=== PATIENT | male | born 1985 | race Caucasian/White ===

== ENCOUNTER 2020-04-07 13:42 | Inpatient (IN) ==
[2020-04-07] MEDS ORDERED: SODIUM CHLORIDE 0.9% 250 ML IV PRN ×2 (14:47→23:52)
[2020-04-07] MEDS ORDERED: DEXAMETHASONE SOD INJ 10 MG/ML VIAL IV ONE (14:54)
[2020-04-07] MEDS ORDERED: diphenhydrAMINE 50 MG/ML VIAL IV STA (14:54)
[2020-04-07] MEDS ORDERED: SODIUM CHLORIDE 0.9% 1000ML 1,000 ML IV SCH (15:00)
[2020-04-07 15:26] LABS: Hematocrit (blood only) 17.2 % (42-52); Hemoglobin 4.7 g/dL (14.0-18.0); Mean Corpuscular Hemoglobin 21.1 pg (25-34); Mean Corpuscular Hgb Conc 27.3 g/dL (32-36); Mean Corpuscular Volume 77.1 fL (80-100); Mean Platelet Volume 9.7 fL (7.4-10.4); Platelet Count 459 K/uL (130-400); RDW Coefficient of Variation 19.4 % (11.5-14.5); Red Blood Count 2.23 M/uL (4.7-6.1); White Blood Count 8.69 K/uL (4.8-10.8)
[2020-04-07 15:32] LABS: Partial Thromboplastin Ratio 0.7; Partial Thromboplastin Time < 20.0 Seconds (21.0-31.0); Prothrombin Time 10.6 Seconds (9.0-12.0)
[2020-04-07 15:41] LABS: Basophils # (auto) 0.03 K/uL (0-0.2); Basophils % (auto) 0.3 %; Eosinophils % (auto) 3.5 %; Hypochromasia Present; Immature Granulocytes # (auto) 0.01 K/uL (0.00-0.02); Immature Granulocytes % (auto) 0.1 %; Lymphocytes # (auto) 1.31 K/uL (1.2-3.4); Lymphocytes % (auto) 15.1 %; Microcytosis Present; Monocytes # (auto) 0.52 K/uL (0.11-0.59); Neutrophils # (auto) 6.52 K/uL (1.4-6.5); Ovalocytes 1+; Reticulocyte % 6.1 % (0.5-2.0); Reticulocytes # 0.14 10^6/uL (0.02-0.10)
--- NOTE | 2020-04-07 15:42 | XRay Report ---
XR chest 1V portable CLINICAL HISTORY: Atypical chest pain COMPARISON STUDY: No previous studies for comparison. FINDINGS: The cardiac and mediastinal contours are normal. There is no evidence of focal pulmonary co nsolidation. There is no evidence of failure. No pleural effusions are visualized.[ IMPRESSION: No active disease in the chest. ACT 112: Negative or not required by law. Electronically signed by: Jesse Mckeon M.D. 04/07/2020 3:41 PM
[2020-04-07 16:11] LABS: Alanine Aminotransferase 11 U/L (12-78); Albumin Globulin Ratio 0.6 (0.9-2); Aspartate Aminotransferase 9 U/L (15-37); BUN Creatinine Ratio 15.2 (10-20); Bilirubin Direct < 0.1 mg/dl (0-0.2); Bilirubin,Total 0.3 mg/dl (0.2-1); Blood Urea Nitrogen 11 mg/dl (7-18); Calcium 7.8 mg/dl (8.5-10.1); Carbon Dioxide 29 mmol/L (21-32); Chloride 105 mmol/L (98-107); Creatinine Clr Calc Pharmacy 140.5 ml/min; Est GFR (African American) 140.9; Est GFR (Non-African American) 121.6; Globulin 3.1 gm/dl (2.5-4.0); Glucose 102 mg/dl (70-99); Lipase 118 U/L (73-393); Magnesium 2.2 mg/dl (1.8-2.4); Potassium 3.8 mmol/L (3.5-5.1); Sodium 138 mmol/L (136-145); Total Protein 5.1 gm/dl (6.4-8.2)
[2020-04-07 16:15] LABS: Alkaline Phosphatase 20 U/L (45-117); C Reactive Protein < 0.29 mg/dl (0-0.29); Ferritin 15.5 ng/ml (8-388); Iron 8 mcg/dl (35-175); Total Iron Binding Capacity 324 mcg/dl (250-450); Transferrin 255 mg/dl (200-360); Troponin I < 0.015 ng/ml (0-0.045)
--- NOTE | 2020-04-07 16:15 | Electrocardiogram Report ---
Test Reason : Blood Pressure : / mmHG Vent. Rate : 120 BPM Atrial Rate : 120 BPM P-R Int : 134 ms QRS Dur : 080 ms QT Int : 326 ms P-R-T Axes : 059 053 013 degrees QTc Int : 460 ms Sinus tachycardia Otherwise normal ECG No previous ECGs available Confirmed by Johnson Burgess ([id number]) on 04/07/2020 4:15:07 PM Referred By: Heri Ignacio Confirmed By:Johnson Burgess
[2020-04-07 16:16] LABS: Folate (Folic Acid) 9.58 ng/ml (>5.38)
--- NOTE | 2020-04-07 18:13 | Emergency Department Note ---
Impression & Plan Symptomatic anemia, Iron deficiency anemia, History of resection of small bowel ED Provider Note NAME: KAYLEE GUZMAN AGE: 34 SEX: M ARRIVES VIA: Walk-In INFORMANT: Patient, ED PROVIDER(S): Hira Bowman MD CHIEF COMPLAINT: Referred. Anemia PLAN: Disposition: Admit MEDICAL DECISION MAKING: The patient is a pleasant 34-year-old gentleman with a complex past medical history of refractory iron deficiency anemia with history of partial bowel resection in 2014 which he reports related to the first portion of the duodenum being resected and has had multiple upper GI evaluations and colonscopy last month that were negative for active bleeding or bleeding source. He does have a history of ankylosing spondylitis for which he is on Humira and follows with rheumatology, has been following with hematology and [place] for periodic IV iron infusion where he will experience improvement but then quickly regresses, who now presents emergency department after having outpatient blood work demonstrating a hemoglobin of 4.8 referred to emergency department for evaluation. The patient denies any bloody or black stools. He denies any chest pain shortness of breath, fevers, chills, cough, congestion, nausea, vomiting, diarrhea. His main complaint is feeling significant fatigue. I did review the patient's presentation with Dr. Ignacio who the patient has followed with recently and recommends admission for transfusion and further evaluation with possibility of capsule endoscopy for clarification of potential occult bleeding source. On arrival the patient is fatigued appearing. Skin and MM with severe pallor. Abdomen benign. EKG without evidence of acute ischemia. CXR negative. WBC wnl. H/H 4.7/17.2 down from 8.7/30 last month. Platelets 459 similar to prior. Patient consented and crossed for 3 units PRBCs. Chemistry without acidosis. LFTs unremarkable. Iron studies c/w iron deficiency. UA negative for infection. CT abd/pelvis performed and demonstrates patients post-operative changes with chronic gastric outlet na rrowing without complete obstruction. CT findings were reviewed with the patient and he confirms that this consistent with his more recent imaging and is unchanged. He reports his surgeon is considering revision once his anemia with is better controlled/stable. Patient agrees with plan for admission for further evaluation and transfusion, which was initiated in the ED. Case was discussed [place] Hodges, [facility] [place], who will evaluate the patient for admission. Triage Nursing notes reviewed and agree them. Additional history obtained from [facility] hematology records Prior medical records reviewed Vital Signs: reviewed and remarkable for no significant abnormalities Differential diagnosis: Infection, dehydration, metabolic abnormality, hypo/hyperglycemia, electrolyte disturbance, anemia, hypoxia, cardiac sources, intracerebral event, toxicologic, neurologic, as well as other pathologies. ER treatment provided: See below. Diagnostics interpreted by me: ECG: Sinus Tachycardia, 120 bpm, no ectopy, no overt ST elevation or depression. Cardiac Monitoring: An order for continuous cardiac monitoring was placed and demonstrated Sinus Tachycardia, 120 bpm, no ectopy. Laboratory studies: See below Imaging studies: XR chest 1V portable CLINICAL HISTORY: Atypical chest pain COMPARISON STUDY: No previous studies for comparison. FINDINGS: The cardiac and mediastinal contours are normal. There is no evidence of focal pulmonary consolidation. There is no evidence of failure. No pleural effusions are visualized.[ IMPRESSION: No active disease in the chest. CT SCAN OF THE ABDOMEN AND PELVIS WITH IV CONTRAST CLINICAL HISTORY: Anemia. Weakness. COMPARISON STUDY: No priors. TECHNIQUE: Following the IV administration of 94 cc of Optiray 320, CT scan of the abdomen and pelvis is performed from the lung bases to the proximal femora. Images are reviewed in the axial, sagittal, and coronal planes. IV contrast was administered without complication. Oral contrast was utilized. A dose lowering technique was utilized adhering to the principles of ALARA. CT DOSE: 375.15 mGy.cm FINDINGS: Lung bases: The heart is normal in size and without pericardial effusion. The lung bases are clear. Liver: The contrast-enhanced liver is normal in size, contour, and attenuation. There is no intrahepatic biliary ductal dilatation. The hepatic veins and portal veins are patent. Gallbladder: Surgically absent noting clips in the gallbladder fossa. Spleen: Normal in size and attenuation. Pancreas: Unremarkable. Adrenal glands: Unremarkable. Kidneys: The contrast enhanced kidneys are normal in size and without hydronephrosis. The kidneys enhance symmetrically. Abdominal vasculature: The abdominal aorta is normal in course and caliber. Stomach and bowel: The stomach is markedly distended and filled with fluid/debris. Postoperative change is seen involving the distal stomach/duodenum. The duodenum does not cross midline, and the colon and cecum are located within the left abdomen. These findings are consistent with malrotation. The duodenum may also be distended as the gastroduodenal junction is not well delineated. The small bowel loops are normal in caliber. There is moderate constipation. No bowel obstruction is seen, with enteric contrast reaching the left colon. The appendix is not identified and reported surgically absent. Peritoneum: There is no intraperitoneal free air or abdominal ascites. A fat- containing supraumbilical hernia seen on image #189. Lymphadenopathy: None. Pelvic viscera: The bladder, prostate, and seminal vesicles are normal as visualized. Skeletal structures: Scattered bone islands are noted in the pelvis. No lytic or blastic lesions are seen. IMPRESSION: 1. 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 2. Postoperative change is noted involving the distal stomach/duodenum. Correlation with the operative history will be required. 3. The stomach is markedly distended and filled with fluid/debris. The duodenum may also be markedly distended, as the gastroduodenal junction is not well de lineated. The small bowel loops are normal in caliber, and the appearance suggests gastric outlet obstruction. 4. There is no evidence of complete obstruction, as enteric contrast reaches the distal colon. 5. Moderate constipation. 6. Additional findings as above. Consultation(s): Case was discussed [place]. Hodges, [facility] [place], who will evaluate the patient for admission. HPI: The patient is a pleasant 34-year-old gentleman with a complex past medical history of refractory iron deficiency anemia with history of partial bowel r esection in 2015 which he reports related to the first portion of the duodenum being resected and has had multiple upper GI evaluations and colonscopy last month that were negative for active bleeding or bleeding source. He does have a history of ankylosing spondylitis for which he is on Humira and follows with rheumatology, has been following with hematology and [place] for periodic IV iron infusion where he will experience improvement but then quickly regresses, who now presents emergency department after having outpatient blood work demonstrating a hemoglobin of 4.8 referred to emergency department for evaluation. The patient denies any bloody or black stools. He denies any chest pain shortness of breath, fevers, chills, cough, congestion, nausea, vomiting, diarrhea. His main complaint is feeling significant fatigue. I did review the patient's presentation with Dr. Ignacio who the patient has followed with recently and recommends admission for transfusion and further evaluation with possibility of capsule endoscopy for clarification of potential occult bleeding source. ROS: See above HPI for pertinent positives & negatives. A total of 10 systems reviewed and were otherwise negative. PAST MEDICAL HISTORY:See Below PAST SURGICAL HISTORY:See Below FAMILY HISTORY:See Below SOCIAL HISTORY:See Below HOME MEDICATIONS:See Below ALLERGIES:See Below VITALS:See Below PHYSICAL EXAMINATION: GENERAL: Awake, alert, fatigued-appearing, in no distress HENT: Normocephalic, atraumatic. Oropharynx with dry mucous membranes and otherwise unremarkable. EYES: Normal conjunctiva. Sclera non-icteric. NECK: Supple. No nuchal rigidity. FROM. No JVD. RESPIRATORY: Clear to auscultation. CARDIAC: Regular rate, normal rhythm. Extremities warm and well perfused. Pulses equal. ABDOMEN: Soft, non-distended. No tenderness to palpation. No rebound or guarding. No masses. RECTAL: Deferred. MUSCULOSKELETAL: Chest examination reveals no tenderness. The back is symmetrical on inspection without obvious abnormality. There is no CVA tenderness to palpation. No joint edema. LOWER EXTREMITIES: Calves are equal size bilaterally and non-tender. No edema. No discoloration. NEURO: Normal sensorium. No sensory or motor deficits noted. SKIN: Pale appearing. No rash or jaundice noted. ED COURSE: Critical Care: I have personally spent greater than 135 minutes of critical care time in the direct management of this patient. This includes bedside care, interpretation of diagnostic studies, and testing, discussion with consultants, patient, and family members, and other required patient management activities. This 135 minutes is in excess of all separately billable procedures. Hira Bowman MD Past Med/Surg History Medical History Ankylosis of thoracic spine Asthma Iron deficiency anemia Surgical History History of resection of small bowel Hx of sinus surgery Social History Smoking Status: Never smoker Hx Alcohol Use: No Hx Substance Use: No Preferred Language: Maldivian Communication Ability: Effective Biscuit Maker Required: No Beliefs That Will Affect Care: None Current Living Situation: Spouse and Family Feels Safe at Home: Yes Safety Concerns: Feels Safe At This Time Assistive Devices: None Allergies Allergies Allergy/AdvReac Type Severity Reaction Status Date / Time amoxicillin [From Augmentin] Allergy Mild Rash Verified 04/07/20 16:23 clavulanic acid AdvReac Mild Rash Verified 04/07/20 16:23 [From Augmentin] Sulfa (Sulfonamide AdvReac Mild Rash Verified 04/07/20 16:23 Antibiotics) Home Meds Home Medications Medication Instructions Recorded Confirmed adalimumab [Humira Pen] 40 mg SUBCUT .[id number] 04/07/20 04/07/20 apixaban [Eliquis] 5 mg PO BID 04/07/20 04/07/20 famotidine-Ca carb-mag hydrox 1 tab PO BID 04/07/20 04/07/20 [Pepcid Complete] Results & Data (ED) Vital Signs Vital Signs - 24 hr 04/07/20 14:37 04/07/20 15:05 04/07/20 15:09 Temperature 37.3 C Temperature Source Oral Pulse Rate 124 H 95 H Pulse Rate [Right] Pulse Rate from SpO2 Sensor 95 H Pulse Rhythm Pulse Rhythm [Right] Pulse Strength Pulse Strength [Right] Respiratory Rate 18 17 Respiratory Effort / Characteristics Non-Labored Respiratory Depth Normal Blood Pressure 99/60 L 91/43 L Blood Pressure [Right Arm] Blood Pressure Mean 73 53 Blood Pressure Mean [Right Arm] Blood Pressure Position Blood Pressure Position [Right Arm] Pulse Oximetry 100 100 100 Oxygen Delivery Method Room Air Room Air Oxygen Flow Rate Sepsis Recent Fever Within 48 Hours No Sepsis New/Unexplained Change in Mental Status N/A Sepsis Action Taken by Nursing No Action Required 04/07/20 15:30 04/07/20 16:00 04/07/20 16:30 Temperature Temperature Source Pulse Rate 106 H 108 H 112 H Pulse Rate [Right] Pulse Rate from SpO2 Sensor 107 H 109 H 112 H Pulse Rhythm Pulse Rhythm [Right] Pulse Strength Pulse Strength [Right] Respiratory Rate 18 20 18 Respiratory Effort / Characteristics Respiratory Depth Blood Pressure 104/62 108/66 114/69 Blood Pressure [Right Arm] Blood Pressure Mean 71 77 85 Blood Pressure Mean [Right Arm] Blood Pressure Position Blood Pressure Position [Right Arm] Pulse Oximetry 100 100 100 Oxygen Delivery Method Oxygen Flow Rate Sepsis Recent Fever Within 48 Hours Sepsis New/Unexplained Change in Mental Status Sepsis Action Taken by Nursing 04/07/20 16:37 04/07/20 16:40 04/07/20 16:43 Temperature 37.1 C Temperature Source Oral Pulse Rate 113 H 114 H 117 H Pulse Rate [Right] Pulse Rate from SpO2 Sensor 115 H 112 H Pulse Rhythm Pulse Rhythm [Right] Pulse Strength Pulse Strength [Right] Respiratory Rate 18 18 22 Respiratory Effort / Characteristics Respiratory Depth Blood Pressure 109/73 115/68 115/68 Blood Pressure [Right Arm] Blood Pressure Mean 85 87 83 Blood Pressure Mean [Right Arm] Blood Pressure Position Blood Pressure Position [Right Arm] Pulse Oximetry 100 100 Oxygen Delivery Method Oxygen Flow Rate Sepsis Recent Fever Within 48 Hours Sepsis New/Unexplained Change in Mental Status Sepsis Action Taken by Nursing 04/07/20 16:45 04/07/20 16:50 04/07/20 16:55 Temperature Temperature Source Pulse Rate 115 H 115 H 114 H Pulse Rate [Right] Pulse Rate from SpO2 Sensor 114 H 114 H 114 H Pulse Rhythm Pulse Rhythm [Right] Pulse Strength Pulse Strength [Right] Respiratory Rate 19 23 18 Respiratory Effort / Characteristics Respiratory Depth Blood Pressure 110/67 112/71 115/62 Blood Pressure [Right Arm] Blood Pressure Mean 77 82 75 Blood Pressure Mean [Right Arm] Blood Pressure Position Blood Pressure Position [Right Arm] Pulse Oximetry 100 100 100 Oxygen Delivery Method Oxygen Flow Rate Sepsis Recent Fever Within 48 Hours Sepsis New/Unexplained Change in Mental Status Sepsis Action Taken by Nursing 04/07/20 17:00 04/07/20 17:03 04/07/20 17:05 Temperature 37.1 C 37.2 C Temperature Source Oral Oral Pulse Rate 111 H 109 H 109 H Pulse Rate [Right] Pulse Rate from SpO2 Sensor 111 H 109 H 110 H Pulse Rhythm Pulse Rhythm [Right] Pulse Strength Pulse Strength [Right] Respiratory Rate 20 19 19 Respiratory Effort / Characteristics Respiratory Depth Blood Pressure 109/65 111/62 106/63 Blood Pressure [Right Arm] Blood Pressure Mean 77 73 82 Blood Pressure Mean [Right Arm] Blood Pressure Position Lying Lying Blood Pressure Position [Right Arm] Pulse Oximetry 100 100 100 Oxygen Delivery Method Room Air Oxygen Flow Rate Sepsis Recent Fever Within 48 Hours Sepsis New/Unexplained Change in Mental Status Sepsis Action Taken by Nursing 04/07/20 17:10 04/07/20 17:15 04/07/20 17:20 Temperature 37.2 C Temperature Source Oral Pulse Rate 110 H 111 H 112 H Pulse Rate [Right] Pulse Rate from SpO2 Sensor 110 H 111 H 112 H Pulse Rhythm Pulse Rhythm [Right] Pulse Strength Pulse Strength [Right] Respiratory Rate 19 19 19 Respiratory Effort / Characteristics Respiratory Depth Blood Pressure 115/65 114/65 107/66 Blood Pressure [Right Arm] Blood Pressure Mean 78 84 76 Blood Pressure Mean [Right Arm] Blood Pressure Position Lying Blood Pressure Position [Right Arm] Pulse Oximetry 100 100 100 Oxygen Delivery Method Oxygen Flow Rate 0 Sepsis Recent Fever Within 48 Hours Sepsis New/Unexplained Change in Mental Status Sepsis Action Taken by Nursing 04/07/20 17:25 04/07/20 17:30 04/07/20 17:35 Temperature 37.1 C Temperature Source Oral Pulse Rate 113 H 113 H 114 H Pulse Rate [Right] Pulse Rate from SpO2 Sensor 113 H 114 H 114 H Pulse Rhythm Pulse Rhythm [Right] Pulse Strength Pulse Strength [Right] Respiratory Rate 19 20 19 Respiratory Effort / Characteristics Respiratory Depth Blood Pressure 114/64 117/68 118/69 Blood Pressure [Right Arm] Blood Pressure Mean 78 81 81 Blood Pressure Mean [Right Arm] Blood Pressure Position Lying Blood Pressure Position [Right Arm] Pulse Oximetry 100 100 100 Oxygen Delivery Method Oxygen Flow Rate Sepsis Recent Fever Within 48 Hours Sepsis New/Unexplained Change in Mental Status Sepsis Action Taken by Nursing 04/07/20 17:40 04/07/20 17:45 04/07/20 17:48 Temperature 37.4 C Temperature Source Oral Pulse Rate 115 H 116 H 116 H Pulse Rate [Right] Pulse Rate from SpO2 Sensor 115 H 116 H Pulse Rhythm Regular Pulse Rhythm [Right] Pulse Strength Pulse Strength [Right] Respiratory Rate 20 20 20 Respiratory Effort / Characteristics Respiratory Depth Blood Pressure 109/69 119/68 119/68 Blood Pressure [Right Arm] Blood Pressure Mean 89 88 85 Blood Pressure Mean [Right Arm] Blood Pressure Position Lying Blood Pressure Position [Right Arm] Pulse Oximetry 100 100 100 Oxygen Delivery Method Oxygen Flow Rate Sepsis Recent Fever Within 48 Hours Sepsis New/Unexplained Change in Mental Status Sepsis Action Taken by Nursing 04/07/20 17:50 04/07/20 17:55 04/07/20 18:05 Temperature Temperature Source Pulse Rate 118 H 117 H 116 H Pulse Rate [Right] Pulse Rate from SpO2 Sensor 119 H 117 H 117 H Pulse Rhythm Pulse Rhythm [Right] Pulse Strength Pulse Strength [Right] Respiratory Rate 20 20 21 Respiratory Effort / Characteristics Respiratory Depth Blood Pressure 120/68 121/69 125/62 Blood Pressure [Right Arm] Blood Pressure Mean 76 78 84 Blood Pressure Mean [Right Arm] Blood Pressure Position Blood Pressure Position [Right Arm] Pulse Oximetry 100 100 100 Oxygen Delivery Method Oxygen Flow Rate Sepsis Recent Fever Within 48 Hours Sepsis New/Unexplained Change in Mental Status Sepsis Action Taken by Nursing 04/07/20 18:15 04/07/20 18:30 04/07/20 18:35 Temperature 37.4 C Temperature Source Oral Pulse Rate 111 H 112 H 108 H Pulse Rate [Right] Pulse Rate from SpO2 Sensor 111 H 110 H Pulse Rhythm Pulse Rhythm [Right] Pulse Strength Pulse Strength [Right] Respiratory Rate 18 16 19 Respiratory Effort / Characteristics Respiratory Depth Blood Pressure 123/68 122/71 122/71 Blood Pressure [Right Arm] Blood Pressure Mean 88 87 88 Blood Pressure Mean [Right Arm] Blood Pressure Position Lying Blood Pressure Position [Right Arm] Pulse Oximetry 100 100 100 Oxygen Delivery Method Oxygen Flow Rate Sepsis Recent Fever Within 48 Hours Sepsis New/Unexplained Change in Mental Status Sepsis Action Taken by Nursing 04/07/20 18:45 04/07/20 19:33 04/07/20 20:05 Temperature 37.0 C Temperature Source Oral Pulse Rate 106 H 107 H Pulse Rate [Right] 109 H Pulse Rate from SpO2 Sensor 106 H Pulse Rhythm Regular Pulse Rhythm [Right] Regular Pulse Strength Normal Pulse Strength [Right] Normal Respiratory Rate 21 16 16 Respiratory Effort / Characteristics Non-Labored Spontaneous Respiratory Depth Normal Blood Pressure 116/70 105/71 Blood Pressure [Right Arm] 115/66 Blood Pressure Mean 85 82 Blood Pressure Mean [Right Arm] 82 Blood Pressure Position Blood Pressure Position [Right Arm] Lying Pulse Oximetry 100 99 100 Oxygen Delivery Method Room Air Oxygen Flow Rate Sepsis Recent Fever Within 48 Hours Sepsis New/Unexplained Change in Mental Status Sepsis Action Taken by Nursing 04/07/20 20:10 04/07/20 20:15 04/07/20 20:30 Temperature 37.0 C 37.0 C 36.9 C Temperature Source Oral Oral Oral Pulse Rate 101 H 101 H 75 Pulse Rate [Right] Pulse Rate from SpO2 Sensor Pulse Rhythm Regular Regular Regular Pulse Rhythm [Right] Pulse Strength Normal Normal Normal Pulse Strength [Right] Respiratory Rate 16 16 16 Respiratory Effort / Characteristics Respiratory Depth Blood Pressure 110/71 118/70 118/66 Blood Pressure [Right Arm] Blood Pressure Mean 84 86 83 Blood Pressure Mean [Right Arm] Blood Pressure Position Lying Lying Lying Blood Pressure Position [Right Arm] Pulse Oximetry 100 100 100 Oxygen Delivery Method Oxygen Flow Rate Sepsis Recent Fever Within 48 Hours Sepsis New/Unexplained Change in Mental Status Sepsis Action Taken by Nursing 04/07/20 20:53 04/07/20 21:06 04/07/20 21:24 Temperature 37.0 C 37.0 C 36.7 C Temperature Source Oral Oral Oral Pulse Rate 77 94 H 101 H Pulse Rate [Right] Pulse Rate from SpO2 Sensor Pulse Rhythm Regular Regular Regular Pulse Rhythm [Right] Pulse Strength Normal Normal Normal Pulse Strength [Right] Respiratory Rate 16 16 16 Respiratory Effort / Characteristics Respiratory Depth Blood Pressure 114/67 114/66 124/71 Blood Pressure [Right Arm] Blood Pressure Mean 82 82 88 Blood Pressure Mean [Right Arm] Blood Pressure Position Lying Lying Lying Blood Pressure Position [Right Arm] Pulse Oximetry 100 100 100 Oxygen Delivery Method Oxygen Flow Rate Sepsis Recent Fever Within 48 Hours Sepsis New/Unexplained Change in Mental Status Sepsis Action Taken by Nursing Laboratory Data Attestation: I reviewed the patient's lab results. Result diagrams: 04/07/20 15:02 04/07/20 15:02 Lab Results 04/07/20 04/07/20 04/07/20 Range/Units 15:02 15:02 15:02 WBC 8.69 (4.8-10.8) K/uL RBC 2.23 L (4.7-6.1) M/uL Hgb 4.7 L* (14.0-18.0) g/dL Hct 17.2 L* (42-52) % MCV 77.1 L (80-100) fL MCH 21.1 L (25-34) pg MCHC 27.3 L (32-36) g/dL RDW Std Deviation 55.0 H (36.4-46.3) fL RDW Coeff of Jodi 19.4 H (11.5-14.5) % Plt Count 459 H (130-400) K/uL MPV 9.7 (7.4-10.4) fL Immature Gran % (Auto) 0.1 % Neut % (Auto) 75.0 % Lymph % (Auto) 15.1 % [place] % (Auto) 6.0 % Eos % (Auto) 3.5 % Baso % (Auto) 0.3 % Reticulocyte % (Auto) 6.1 H (0.5-2.0) % Neut # (Auto) 6.52 H (1.4-6.5) K/uL Lymph # (Auto) 1.31 (1.2-3.4) K/uL [place] # (Auto) 0.52 (0.11-0.59) K/uL Eos # (Auto) 0.30 (0-0.5) K/uL Baso # (Auto) 0.03 (0-0.2) K/uL Reticulocyte # 0.14 H (0.02-0.10) 10^6/uL Immature Gran # (Auto) 0.01 (0.00-0.02) K/uL Hypochromasia Present Microcytosis Present Ovalocytes 1+ ESR (0-14) mm/hr PT 10.6 (9.0-12.0) Seconds INR 1.0 (0.9-1.1) APTT < 20.0 L (21.0-31.0) Seconds PTT Ratio 0.7 Sodium (136-145) mmol/L Potassium (3.5-5.1) mmol/L Chloride (98-107) mmol/L Carbon Dioxide (21-32) mmol/L Anion Gap (3-11) BUN (7-18) mg/dl Creatinine (0.6-1.4) mg/dl Est Cr Clr Drug Dosing ml/min Est GFR ( Amer) Est GFR (Non-Af Amer) BUN/Creatinine Ratio (10-20) Glucose (70-99) mg/dl Calcium (8.5-10.1) mg/dl Phosphorus (2.5-4.9) mg/dl Magnesium (1.8-2.4) mg/dl Iron (35-175) mcg/dl TIBC (250-450) mcg/dl Transferrin (200-360) mg/dl Ferritin (8-388) ng/ml Total Bilirubin (0.2-1) mg/dl Direct Bilirubin (0-0.2) mg/dl AST (15-37) U/L ALT (12-78) U/L Alkaline Phosphatase (45-117) U/L Lactate Dehydrogenase (87-241) U/L Troponin I (0-0.045) ng/ml C-Reactive Protein (0-0.29) mg/dl Total Protein (6.4-8.2) gm/dl Albumin (3.4-5.0) gm/dl Globulin (2.5-4.0) gm/dl Albumin/Globulin Ratio (0.9-2) Lipase (73-393) U/L Vitamin B12 (211-911) pg/ml Folate (>5.38) ng/ml Urine Color Urine Appearance (Clear) Urine pH (4.5-7.5) Ur Specific [place] (1.000-1.030) Urine Protein (Negative) Urine Glucose (UA) (Negative) Urine Ketones (Negative) Urine Blood (Negative) Urine Nitrite (Negative) Urine Bilirubin (Negative) Urine Urobilinogen (Negative) Ur Leukocyte Esterase (Negative) Blood Type A Positive Antibody Screen NEGATIVE Crossmatch See Detail 04/07/20 04/07/20 04/07/20 Range/Units 15:02 15:02 15:02 WBC (4.8-10.8) K/uL RBC (4.7-6.1) M/uL Hgb (14.0-18.0) g/dL Hct (42-52) % MCV (80-100) fL MCH (25-34) pg MCHC (32-36) g/dL RDW Std Deviation (36.4-46.3) fL RDW Coeff of Jodi (11.5-14.5) % Plt Count (130-400) K/uL MPV (7.4-10.4) fL Immature Gran % (Auto) % Neut % (Auto) % Lymph % (Auto) % [place] % (Auto) % Eos % (Auto) % Baso % (Auto) % Reticulocyte % (Auto) (0.5-2.0) % Neut # (Auto) (1.4-6.5) K/uL Lymph # (Auto) (1.2-3.4) K/uL [place] # (Auto) (0.11-0.59) K/uL Eos # (Auto) (0-0.5) K/uL Baso # (Auto) (0-0.2) K/uL Reticulocyte # (0.02-0.10) 10^6/uL Immature Gran # (Auto) (0.00-0.02) K/uL Hypochromasia Microcytosis Ovalocytes ESR 4 (0-14) mm/hr PT (9.0-12.0) Seconds INR (0.9-1.1) APTT (21.0-31.0) Seconds PTT Ratio Sodium 138 (136-145) mmol/L Potassium 3.8 (3.5-5.1) mmol/L Chloride 105 (98-107) mmol/L Carbon Dioxide 29 (21-32) mmol/L Anion Gap 4.0 (3-11) BUN 11 (7-18) mg/dl Creatinine 0.71 (0.6-1.4) mg/dl Est Cr Clr Drug Dosing 140.5 ml/min Est GFR ( Amer) 140.9 Est GFR (Non-Af Amer) 121.6 BUN/Creatinine Ratio 15.2 (10-20) Glucose 102 H (70-99) mg/dl Calcium 7.8 L (8.5-10.1) mg/dl Phosphorus 4.0 (2.5-4.9) mg/dl Magnesium 2.2 (1.8-2.4) mg/dl Iron 8 L (35-175) mcg/dl TIBC 324 (250-450) mcg/dl Transferrin 255 (200-360) mg/dl Ferritin 15.5 (8-388) ng/ml Total Bilirubin 0.3 (0.2-1) mg/dl Direct Bilirubin < 0.1 (0-0.2) mg/dl AST 9 L (15-37) U/L ALT 11 L (12-78) U/L Alkaline Phosphatase 20 L (45-117) U/L Lactate Dehydrogenase 98 (87-241) U/L Troponin I < 0.015 (0-0.045) ng/ml C-Reactive Protein < 0.29 (0-0.29) mg/dl Total Protein 5.1 L (6.4-8.2) gm/dl Albumin 2.0 L (3.4-5.0) gm/dl Globulin 3.1 (2.5-4.0) gm/dl Albumin/Globulin Ratio 0.6 L (0.9-2) Lipase 118 (73-393) U/L Vitamin B12 (211-911) pg/ml Folate (>5.38) ng/ml Urine Color Urine Appearance (Clear) Urine pH (4.5-7.5) Ur Specific [place] (1.000-1.030) Urine Protein (Negative) Urine Glucose (UA) (Negative) Urine Ketones (Negative) Urine Blood (Negative) Urine Nitrite (Negative) Urine Bilirubin (Negative) Urine Urobilinogen (Negative) Ur Leukocyte Esterase (Negative) Blood Type Antibody Screen Crossmatch 04/07/20 04/07/20 Range/Units 15:02 18:01 WBC (4.8-10.8) K/uL RBC (4.7-6.1) M/uL Hgb (14.0-18.0) g/dL Hct (42-52) % MCV (80-100) fL MCH (25-34) pg MCHC (32-36) g/dL RDW Std Deviation (36.4-46.3) fL RDW Coeff of Jodi (11.5-14.5) % Plt Count (130-400) K/uL MPV (7.4-10.4) fL Immature Gran % (Auto) % Neut % (Auto) % Lymph % (Auto) % [place] % (Auto) % Eos % (Auto) % Baso % (Auto) % Reticulocyte % (Auto) (0.5-2.0) % Neut # (Auto) (1.4-6.5) K/uL Lymph # (Auto) (1.2-3.4) K/uL [place] # (Auto) (0.11-0.59) K/uL Eos # (Auto) (0-0.5) K/uL Baso # (Auto) (0-0.2) K/uL Reticulocyte # (0.02-0.10) 10^6/uL Immature Gran # (Auto) (0.00-0.02) K/uL Hypochromasia Microcytosis Ovalocytes ESR (0-14) mm/hr PT (9.0-12.0) Seconds INR (0.9-1.1) APTT (21.0-31.0) Seconds PTT Ratio Sodium (136-145) mmol/L Potassium (3.5-5.1) mmol/L Chloride (98-107) mmol/L Carbon Dioxide (21-32) mmol/L Anion Gap (3-11) BUN (7-18) mg/dl Creatinine (0.6-1.4) mg/dl Est Cr Clr Drug Dosing ml/min Est GFR ( Amer) Est GFR (Non-Af Amer) BUN/Creatinine Ratio (10-20) Glucose (70-99) mg/dl Calcium (8.5-10.1) mg/dl Phosphorus (2.5-4.9) mg/dl Magnesium (1.8-2.4) mg/dl Iron (35-175) mcg/dl TIBC (250-450) mcg/dl Transferrin (200-360) mg/dl Ferritin (8-388) ng/ml Total Bilirubin (0.2-1) mg/dl Direct Bilirubin (0-0.2) mg/dl AST (15-37) U/L ALT (12-78) U/L Alkaline Phosphatase (45-117) U/L Lactate Dehydrogenase (87-241) U/L Troponin I (0-0.045) ng/ml C-Reactive Protein (0-0.29) mg/dl Total Protein (6.4-8.2) gm/dl Albumin (3.4-5.0) gm/dl Globulin (2.5-4.0) gm/dl Albumin/Globulin Ratio (0.9-2) Lipase (73-393) U/L Vitamin B12 1128 H (211-911) pg/ml Folate 9.58 (>5.38) ng/ml Urine Color Yellow Urine Appearance Clear (Clear) Urine pH 5.0 (4.5-7.5) Ur Specific [place] 1.015 (1.000-1.030) Urine Protein Negative (Negative) Urine Glucose (UA) Negative (Negative) Urine Ketones Negative (Negative) Urine Blood Negative (Negative) Urine Nitrite Negative (Negative) Urine Bilirubin Negative (Negative) Urine Urobilinogen Negative (Negative) Ur Leukocyte Esterase Negative (Negative) Blood Type Antibody Screen Crossmatch Administered Medications Apixaban (Apixaban 5 Mg Tablet) 5 mg PO BID RAFAEL Stop: 05/07/20 22:43 Last Admin: 04/07/20 23:40 Dose: 5 mg Documented by: [id number] Famotidine (Famotidine 20 Mg Tab) 20 mg PO BID RAFAEL Stop: 05/07/20 22:44 Last Admin: 04/07/20 23:40 Dose: 20 mg Documented by: [id number] Potassium Chloride/Dextrose/Sod Cl (D5nss + 20meq Kcl) 20 meq in 1,000 mls @ 100 mls/hr IV .Q10H RAFAEL Stop: 05/07/20 22:43 Last Admin: 04/07/20 23:41 Dose: 100 mls/hr Documented by: [id number] Discontinued Medications Dexamethasone (Dexamethasone Sod Inj 10 Mg/Ml Vial) 10 mg IV NOW ONE Stop: 04/07/20 14:55 Last Admin: 04/07/20 16:38 Dose: 10 mg Documented by: [id number] Diphenhydramine HCl (Diphenhydramine Hcl 50 Mg/Ml Vial) 25 mg IV NOW STA Stop: 04/07/20 14:55 Last Admin: 04/07/20 16:38 Dose: 25 mg Documented by: [id number] Sodium Chloride (Nss) 250 mls @ 15 mls/hr IV .[id number] PRN PRN Reason: For Transfusion Stop: 04/08/20 00:50 Last Admin: 04/07/20 16:38 Dose: 15 mls/hr Documented by: [id number] Sodium Chloride (Nss 1000ml) 1,000 mls @ 125 mls/hr IV .Q8H RAFAEL Stop: 05/07/20 14:59 Last Infusion: 04/07/20 22:05 Dose: 0 mls/hr Documented by: [id number] Admin: 04/07/20 15:14 Dose: 125 mls/hr Documented by: [id number] Ioversol (Ioversol 100ml) 94 ml IV ONCE ONE Stop: 04/07/20 19:19 Last Admin: 04/07/20 19:19 Dose: 94 ml Documented by: [id number] Discharge Plan Visit Data Chief Complaint: Abnormal Labs/Diagnostic Testing Stated Complaint: SENT BY DR IGNACIO [facility] ED Provider: Hira Bowman Discharge Problem: Symptomatic anemia, Iron deficiency anemia, History of resection of small bowel Patient Disposition: Admitted As Inpatient Discharge Instructions Interventions: ED Discharge Assessment Last Done: 04/07/20 22:13 Discharge Problem: Iron deficiency anemia Qualifiers: Iron deficiency anemia type: unspecified iron deficiency Qualified Code(s): D50.9 - Iron deficiency anemia, unspecified
[2020-04-07 18:15] LABS: Appearance Urine Clear (Clear); Bilirubin Urine Negative (Negative); Blood Urine Negative (Negative); Color Urine Yellow; Glucose Urine UA Negative (Negative); Ketones Urine Negative (Negative); Leukocyte Esterase Urine Negative (Negative); Nitrite Urine Negative (Negative); Protein Urine Negative (Negative); Specific Gravity Urine 1.015 (1.000-1.030); Urobilinogen Urine Negative (Negative)
[2020-04-07] MEDS ORDERED: IOVERSOL 100ml IV ONE (19:18)
--- NOTE | 2020-04-07 19:49 | CT Scan Report ---
CT SCAN OF THE ABDOMEN AND PELVIS WITH IV CONTRAST CLINICAL HISTORY: Anemia. Weakness. COMPARISON STUDY: No priors. TECHNIQUE: Following the IV administration of 94 cc of Optiray 320, CT scan of the abdomen and pelvi s is performed from the lung bases to the proximal femora. Images are reviewed in the axial, sagittal , and coronal planes. IV contrast was administered without complication. Oral contrast was utilized. A dose lowering technique was utilized adhering to the principles of ALARA. CT DOSE: 375.15 mGy.cm FINDINGS: Lung bases: The heart is normal in size and without pericardial effusion. The lung bases are clear. Liver: The contrast-enhanced liver is normal in size, contour, and attenuation. There is no intrahepa tic biliary ductal dilatation. The hepatic veins and portal veins are patent. Gallbladder: Surgically absent noting clips in the gallbladder fossa. Spleen: Normal in size and attenuation. Pancreas: Unremarkable. Adrenal glands: Unremarkable. Kidneys: The contrast enhanced kidneys are normal in size and without hydronephrosis. The kidneys enh ance symmetrically. Abdominal vasculature: The abdominal aorta is normal in course and caliber. Stomach and bowel: The stomach is markedly distended and filled with fluid/debris. Postoperative rob ge is seen involving the distal stomach/duodenum. The duodenum does not cross midline, and the colon and cecum are located within the left abdomen. These findings are consistent with malrotation. The du odenum may also be distended as the gastroduodenal junction is not well delineated. The small bowel l oops are normal in caliber. There is moderate constipation. No bowel obstruction is seen, with enteri c contrast reaching the left colon. The appendix is not identified and reported surgically absent. Peritoneum: There is no intraperitoneal free air or abdominal ascites. A fat-containing supraumbilica l hernia seen on image #189. Lymphadenopathy: None. Pelvic viscera: The bladder, prostate, and seminal vesicles are normal as visualized. Skeletal structures: Scattered bone islands are noted in the pelvis. No lytic or blastic lesions are seen. IMPRESSION: 1. 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 2. Postoperative change is noted involving the distal stomach/duodenum. Correlation with the operativ e history will be required. 3. The stomach is markedly distended and filled with fluid/debris. The duodenum may also be markedly distended, as the gastroduodenal junction is not well delineated. The small bowel loops are normal in caliber, and the appearance suggests gastric outlet obstruction. 4. There is no evidence of complete obstruction, as enteric contrast reaches the distal colon. 5. Moderate constipation. 6. Additional findings as above. ACT 112: Negative or not required by law. Electronically signed by: Adelso De La Paz M.D. 04/07/2020 7:48 PM
--- NOTE | 2020-04-07 21:57 | History & Physical Report ---
Date of Service April 07, 2020 Assessment & Plan (1) Iron deficiency anemia: Iron deficiency anemia/malabsorption secondary to duodenojejunostomy- Receiving regular IV iron from Dr. Ignacio. Has required 5 units of PRBCs in the past 13 days. Received 2 units PRBCs in ED tonight, and will recheck laboratories in the a.m. We will consult Dr. Ignacio. Present on Admission?: Yes (2) Crohn's disease: He was admitted at [facility] a few months ago, associated with SBO/Crohn's. Present on Admission?: Yes (3) Duodenal stricture: Duodenal stricture exist just beyond previous surgery site of the duodenojejunostomy. This is causing a backup of fluid into the upper duodenum and stomach, creating a gastric outlet obstruction. The patient reports that the surgeon is waiting to see if Dr. 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 twice daily Present on Admission?: Yes (7) Thrombosis of right iliac vein: See above Present on Admission?: Yes (8) Incisional hernia: History of Present Illness Chief Complaint: The patient was referred to the emergency department by outpatient hematology due to blood work showing a hemoglobin of 4.8. Primary Care Provider: Sridevi Mendoza The patient is a 34-year-old male with a past medical history including Crohn's disease, iron deficiency anemia, duodenal stricture, asthma, incisional hernia, allergic rhinitis, anxiety, left renal vein thrombosis, right internal iliac vein thrombosis, duodenojejunostomy, cholecystectomy, sinus surgeries x5, cardiac cath in 1995, and EGD and colonoscopy at [facility] on 02/22/2020. [facility] due to imaging performed that morning at [facility] which showed severe luminal narrowing of the proximal jejunum distal to the duodenojejunostomy with significant dilatation of the stomach and remaining duodenum. CT also showed severe stenosis of the left renal vein coursing beneath the SMA suggestive of nutcracker syndrome. There are associated left perinephric varices and elongated thrombus of the left renal vein. There was also suspected right internal iliac vein thrombus. He was started on IV heparin at that time, and then was converted to Eliquis 5 mg p.o. twice daily at the time of discharge. Allergies Allergy/AdvReac Type Severity Reaction Status Date / Time amoxicillin [From Augmentin] Allergy Mild Rash Verified 04/07/20 16:23 clavulanic acid AdvReac Mild Rash Verified 04/07/20 16:23 [From Augmentin] Sulfa (Sulfonamide AdvReac Mild Rash Verified 04/07/20 16:23 Antibiotics) Home Medications Home Medications Medication Instructions Recorded Confirmed Type adalimumab [Humira Pen] 40 mg SUBCUT .[id number] 04/07/20 04/07/20 History apixaban [Eliquis] 5 mg PO BID 04/07/20 04/07/20 History famotidine-Ca carb-mag hydrox 1 tab PO BID 04/07/20 04/07/20 History [Pepcid Complete] Past Med/Surg History Medical History Ankylosis of thoracic spine Asthma Iron deficiency anemia Surgical History History of resection of small bowel Hx of sinus surgery Social History Smoking Status: Never smoker Hx Alcohol Use: No Hx Substance Use: No Preferred Language: Kenyan Communication Ability: Effective Chucking Lathe Operator Required: No Beliefs That Will Affect Care: None Current Living Situation: Spouse and Family Feels Safe at Home: Yes Safety Concerns: Feels Safe At This Time Assistive Devices: None Review of Systems Review of Systems: The patient denies chest pain, palpitations, shortness of breath, dyspnea on exertion, cough, lower extremity swelling, sore throat, fevers, chills, sweats, vomiting, blood in urine or stool, dysuria, urinary frequency or urgency, lightheadedness, dizziness, headache, memory loss, loss of consciousness, rash, abnormal bruising or bleeding, imbalance, focal weakness, numbness or tingling in arms or legs, generalized arthralgias or myalgias, back or neck pain, or night sweats. The review of systems is otherwise negative other than for that already noted above, and at least 10 systems have been reviewed. Physical Exam Physical Exam: The patient is awake, alert and oriented 3, normocephalic and atraumatic, lying in bed and in no acute distress. HEENT--PERRL, EOMI, mucous membranes and oropharynx normal. Neck--supple. No JVD. No bruits. Thyroid normal, trachea midline, no adenopathy. Heart--normal S1 and S2. No murmurs, rubs or gallops. Lungs--clear bilaterally, no respiratory distress, no accessory muscle use. Abdomen--normal bowel sounds and soft. Nontender. Nondistended. Mildly tympanitic Extremities--no cyanosis or clubbing. No edema. Dermatologic--normal skin turgor, normal color, no abnormal lymph nodes, no rash. Neurologic--cranial nerves II through XII grossly intact. Rheumatologic--normal range of motion. Psychiatric--normal affect. Results & Data Results & Data ([facility]) Vital Signs (Past 12 Hours) Vital Signs Temp Pulse Pulse Resp BP BP Pulse Ox 04/07/20 21:24 98.1 F 101 H 16 124/71 100 04/07/20 21:06 98.6 F 94 H 16 114/66 100 04/07/20 20:53 98.6 F 77 16 114/67 100 04/07/20 20:30 98.4 F 75 16 118/66 100 04/07/20 20:15 98.6 F 101 H 16 118/70 100 04/07/20 20:10 98.6 F 101 H 16 110/71 100 04/07/20 20:05 98.6 F 107 H 16 105/71 100 04/07/20 19:33 109 H 16 115/66 99 04/07/20 18:45 106 H 21 116/70 100 04/07/20 18:35 99.3 F 108 H 19 122/71 100 04/07/20 18:30 112 H 16 122/71 100 04/07/20 18:15 111 H 18 123/68 100 04/07/20 18:05 116 H 21 125/62 100 04/07/20 17:55 117 H 20 121/69 100 04/07/20 17:50 118 H 20 120/68 100 04/07/20 17:48 99.3 F 116 H 20 119/68 100 04/07/20 17:45 116 H 20 119/68 100 04/07/20 17:40 115 H 20 109/69 100 04/07/20 17:35 98.8 F 114 H 19 118/69 100 04/07/20 17:30 113 H 20 117/68 100 04/07/20 17:25 113 H 19 114/64 100 04/07/20 17:20 112 H 19 107/66 100 04/07/20 17:15 99.0 F 111 H 19 114/65 100 04/07/20 17:10 110 H 19 115/65 100 04/07/20 17:05 109 H 19 106/63 100 04/07/20 17:03 99.0 F 109 H 19 111/62 100 04/07/20 17:00 98.8 F 111 H 20 109/65 100 04/07/20 16:55 114 H 18 115/62 100 04/07/20 16:50 115 H 23 112/71 100 04/07/20 16:45 115 H 19 110/67 100 04/07/20 16:43 98.8 F 117 H 22 115/68 04/07/20 16:40 114 H 18 115/68 100 04/07/20 16:37 113 H 18 109/73 100 04/07/20 16:30 112 H 18 114/69 100 04/07/20 16:00 108 H 20 108/66 100 04/07/20 15:30 106 H 18 104/62 100 04/07/20 15:09 95 H 17 91/43 L 100 04/07/20 15:05 100 04/07/20 14:37 99.1 F 124 H 18 99/60 L 100 Laboratory Results Laboratory Results WBC 8.69 K/uL (4.8-10.8) 04/07/20 15:02 RBC 2.23 M/uL (4.7-6.1) L 04/07/20 15:02 Hgb 4.7 g/dL (14.0-18.0) L* 04/07/20 15:02 Hct 17.2 % (42-52) L* 04/07/20 15:02 MCV 77.1 fL (80-100) L 04/07/20 15:02 MCH 21.1 pg (25-34) L 04/07/20 15:02 MCHC 27.3 g/dL (32-36) L 04/07/20 15:02 RDW Std Deviation 55.0 fL (36.4-46.3) H 04/07/20 15:02 RDW Coeff of Jodi 19.4 % (11.5-14.5) H 04/07/20 15:02 Plt Count 459 K/uL (130-400) H 04/07/20 15:02 MPV 9.7 fL (7.4-10.4) 04/07/20 15:02 Immature Gran % (Auto) 0.1 % 04/07/20 15:02 Neut % (Auto) 75.0 % 04/07/20 15:02 Lymph % (Auto) 15.1 % 04/07/20 15:02 [place] % (Auto) 6.0 % 04/07/20 15:02 Eos % (Auto) 3.5 % 04/07/20 15:02 Baso % (Auto) 0.3 % 04/07/20 15:02 Reticulocyte % (Auto) 6.1 % (0.5-2.0) H 04/07/20 15:02 Neut # (Auto) 6.52 K/uL (1.4-6.5) H 04/07/20 15:02 Lymph # (Auto) 1.31 K/uL (1.2-3.4) 04/07/20 15:02 [place] # (Auto) 0.52 K/uL (0.11-0.59) 04/07/20 15:02 Eos # (Auto) 0.30 K/uL (0-0.5) 04/07/20 15:02 Baso # (Auto) 0.03 K/uL (0-0.2) 04/07/20 15:02 Reticulocyte # 0.14 10^6/uL (0.02-0.10) H 04/07/20 15:02 Immature Gran # (Auto) 0.01 K/uL (0.00-0.02) 04/07/20 15:02 Hypochromasia Present 04/07/20 15:02 Microcytosis Present 04/07/20 15:02 Ovalocytes 1+ 04/07/20 15:02 ESR 4 mm/hr (0-14) 04/07/20 15:02 PT 10.6 Seconds (9.0-12.0) 04/07/20 15:02 INR 1.0 (0.9-1.1) 04/07/20 15:02 APTT < 20.0 Seconds (21.0-31.0) L 04/07/20 15:02 PTT Ratio 0.7 04/07/20 15:02 Sodium 138 mmol/L (136-145) 04/07/20 15:02 Potassium 3.8 mmol/L (3.5-5.1) 04/07/20 15:02 Chloride 105 mmol/L (98-107) 04/07/20 15:02 Carbon Dioxide 29 mmol/L (21-32) 04/07/20 15:02 Anion Gap 4.0 (3-11) 04/07/20 15:02 BUN 11 mg/dl (7-18) 04/07/20 15:02 Creatinine 0.71 mg/dl (0.6-1.4) 04/07/20 15:02 Est Cr Clr Drug Dosing 140.5 ml/min 04/07/20 15:02 Est GFR ( Amer) 140.9 04/07/20 15:02 Est GFR (Non-Af Amer) 121.6 04/07/20 15:02 BUN/Creatinine Ratio 15.2 (10-20) 04/07/20 15:02 Glucose 102 mg/dl (70-99) H 04/07/20 15:02 Calcium 7.8 mg/dl (8.5-10.1) L 04/07/20 15:02 Phosphorus 3.6 mg/dl (2.5-4.9) 04/07/20 22:55 Magnesium 2.2 mg/dl (1.8-2.4) 04/07/20 15:02 Iron 8 mcg/dl (35-175) L 04/07/20 15:02 TIBC 324 mcg/dl (250-450) 04/07/20 15:02 Transferrin 255 mg/dl (200-360) 04/07/20 15:02 Ferritin 15.5 ng/ml (8-388) 04/07/20 15:02 Total Bilirubin 0.3 mg/dl (0.2-1) 04/07/20 15:02 Direct Bilirubin < 0.1 mg/dl (0-0.2) 04/07/20 15:02 AST 9 U/L (15-37) L 04/07/20 15:02 ALT 11 U/L (12-78) L 04/07/20 15:02 Alkaline Phosphatase 20 U/L (45-117) L 04/07/20 15:02 Lactate Dehydrogenase 98 U/L (87-241) 04/07/20 15:02 Troponin I < 0.015 ng/ml (0-0.045) 04/07/20 15:02 C-Reactive Protein < 0.29 mg/dl (0-0.29) 04/07/20 15:02 Total Protein 5.1 gm/dl (6.4-8.2) L 04/07/20 15:02 Albumin 2.0 gm/dl (3.4-5.0) L 04/07/20 15:02 Globulin 3.1 gm/dl (2.5-4.0) 04/07/20 15:02 Albumin/Globulin Ratio 0.6 (0.9-2) L 04/07/20 15:02 Lipase 118 U/L (73-393) 04/07/20 15:02 Vitamin B12 1128 pg/ml (211-911) H 04/07/20 15:02 Folate 9.58 ng/ml (>5.38) 04/07/20 15:02 Urine Color Yellow 04/07/20 18:01 Urine Appearance Clear (Clear) 04/07/20 18: Urine pH 5.0 (4.5-7.5) 04/07/20 18: Ur Specific [place] 1.015 (1.000-1.030) 04/07/20 18: Urine Protein Negative (Negative) 04/07/20 18: Urine Glucose (UA) Negative (Negative) 04/07/20 18: Urine Ketones Negative (Negative) 04/07/20 18: Urine Blood Negative (Negative) 04/07/20 18: Urine Nitrite Negative (Negative) 04/07/20 18: Urine Bilirubin Negative (Negative) 04/07/20 18: Urine Urobilinogen Negative (Negative) 04/07/20 18: Ur Leukocyte Esterase Negative (Negative) 10/12/20 18:01 Blood Type A Positive 04/07/20 15:02 Antibody Screen NEGATIVE 04/07/20 15:02 Crossmatch See Detail 04/07/20 15:02 Diagnostic Findings [place], [place] [phone] XRay Report Patient: KAYLEE GUZMANAdmit Date: 04/07/20 MR#: [id number]: [id number] REMINGTON SIMON Acct ID:[id number]: Date: 1985[facility] Zip: [place] [address] Age: 34Location: ED Sex: MRoom/Bed: Att Phy:Diagnosis: SENT BY DR IGNACIO [facility] [place] Phy: Sridevi Mendoza D.O.Service Date: 04/07/20 [facility] Phy:Interpreting Phy: Jesse Mckeon MD Admit Phy: Ordering Phy: Hira Bowman M.D. cc: ~ XR chest 1V portable CLINICAL HISTORY: Atypical chest pain COMPARISON STUDY: No previous studies for comparison. FINDINGS: The cardiac and mediastinal contours are normal. There is no evidence of focal pulmonary consolidation. There is no evidence of failure. No pleural effusions are visualized.[ IMPRESSION: No active disease in the chest. ACT 112: Negative or not required by law. Electronically signed by: Jesse Mckeon M.D. 04/07/2020 3:41 PM Dictated: 04/07/20 1540 Transcribed: 04/07/20 1540 [facility], [place] [phone] CT Scan Report Patient: KAYLEE GUZMANAdmit Date: 04/07/20 MR#: [id number]: [id number] REMINGTON SIMON Acct ID:[id number]: Date: 1985[facility] Zip: [place] [address] Age: 34Location: ED Sex: MRoom/Bed: Att Phy:Diagnosis: SENT BY DR IGNACIO [facility] [place] Phy: Sridevi Mendoza D.O.Service Date: 04/07/20 Fam Phy:Interpreting Phy: Adelso De La Paz MD Admit Phy: Ordering Phy: Hira Bowman M.D. cc: ~ CT SCAN OF THE ABDOMEN AND PELVIS WITH IV CONTRAST CLINICAL HISTORY: Anemia. Weakness. COMPARISON STUDY: No priors. TECHNIQUE: Following the IV administration of 94 cc of Optiray 320, CT scan of the abdomen and pelvis is performed from the lung bases to the proximal femora. Images are reviewed in the axial, sagittal, and coronal planes. IV contrast was administered without complication. Oral contrast was utilized. A dose lowering technique was utilized adhering to the principles of ALARA. CT DOSE: 375.15 mGy.cm FINDINGS: Lung bases: The heart is normal in size and without pericardial effusion. The lung bases are clear. Liver: The contrast-enhanced liver is normal in size, contour, and attenuation. There is no intrahepatic biliary ductal dilatation. The hepatic veins and portal veins are patent. Gallbladder: Surgically absent noting clips in the gallbladder fossa. Spleen: Normal in size and attenuation. Pancreas: Unremarkable. Adrenal glands: Unremarkable. Kidneys: The contrast enhanced kidneys are normal in size and without hydronephrosis. The kidneys enhance symmetrically. Abdominal vasculature: The abdominal aorta is normal in course and caliber. Stomach and bowel: The stomach is markedly distended and filled with fluid/debris. Postoperative change is seen involving the distal stomach/duodenum. The duodenum does not cross midline, and the colon and cecum are located within the left abdomen. These findings are consistent with malrotation. The duodenum may also be distended as the gastroduodenal junction is not well delineated. The small bowel loops are normal in caliber. There is moderate constipation. No bowel obstruction is seen, with enteric contrast reaching the left colon. The appendix is not identified and reported surgically absent. Peritoneum: There is no intraperitoneal free air or abdominal ascites. A fat- containing supraumbilical hernia seen on image #189. Lymphadenopathy: None. Pelvic viscera: The bladder, prostate, and seminal vesicles are normal as visualized. Skeletal structures: Scattered bone islands are noted in the pelvis. No lytic or blastic lesions are seen. IMPRESSION: 1. 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 2. Postoperative change is noted involving the distal stomach/duodenum. Correlation with the operative history will be required. 3. The stomach is markedly distended and filled with fluid/debris. The duodenum may also be markedly distended, as the gastroduodenal junction is not well delineated. The small bowel loops are normal in caliber, and the appearance suggests gastric outlet obstruction. 4. There is no evidence of complete obstruction, as enteric contrast reaches the distal colon. 5. Moderate constipation. 6. Additional findings as above. ACT 112: Negative or not required by law. Electronically signed by: Adelso De La Paz M.D. 04/07/2020 7:48 PM Dictated: 04/07/201936 Transcribed: 04/07/201936 Code Status & VTE Plan Code Status Full code VTE Prophylaxis Plan VTE Prophylaxis will be ordered: Yes PG Care Time/CCT Total # of Minutes Spent Total Time Spent with Patient: Total time spent is greater than 50% in coordination of care (as documented) at patient's floor/unit and/or counseling patient: Coding Level of Care Code 77778 Initial Inpt Care Lvl 3 Diagnoses Iron deficiency anemia D50.9 Iron deficiency anemia type: unspecified iron deficiency Crohn's disease K50.90 Duodenal stricture K31.5 Allergic rhinitis J30.9 Anxiety F41.9 Thrombosis of left renal vein I82.3 Thrombosis of right iliac vein I82.421 Incisional hernia K43.2 (1) Iron deficiency anemia Iron deficiency anemia type: unspecified iron deficiency Qualified Code(s): D50.9 - Iron deficiency anemia, unspecified
[2020-04-07] MEDS ORDERED: ONDANSETRON INJ 2 MG/ML 2 ML VIAL IV PRN (22:44)
[2020-04-07] MEDS ORDERED: ACETAMINOPHEN 325 MG TAB PO PRN (22:44)
[2020-04-07] MEDS: FAMOTIDINE 20 MG TAB PO SCH (23:40)
[2020-04-07] MEDS: APIXABAN 5 MG TABLET PO SCH (23:40)
[2020-04-07] MEDS: D5NSS + 20MEQ KCL 20 MEQ/1,000 ML BAG IV SCH (23:41)
[2020-04-08 06:04] LABS: Hematocrit (blood only) 23.8 % (42-52); Hemoglobin 7.2 g/dL (14.0-18.0); Mean Corpuscular Hemoglobin 24.1 pg (25-34); Mean Corpuscular Hgb Conc 30.3 g/dL (32-36); Mean Corpuscular Volume 79.6 fL (80-100); Platelet Count 355 K/uL (130-400); RDW Standard Deviation 56.1 fL (36.4-46.3); Red Blood Count 2.99 M/uL (4.7-6.1); White Blood Count 4.24 K/uL (4.8-10.8)
[2020-04-08 06:27] LABS: Basophils # (auto) 0.01 K/uL (0-0.2); Basophils % (auto) 0.2 %; Hypochromasia Present; Immature Granulocytes # (auto) 0.01 K/uL (0.00-0.02); Immature Granulocytes % (auto) 0.2 %; Lymphocytes # (auto) 0.69 K/uL (1.2-3.4); Lymphocytes % (auto) 16.3 %; Monocytes # (auto) 0.21 K/uL (0.11-0.59); Neutrophils # (auto) 3.32 K/uL (1.4-6.5); Neutrophils % (auto) 78.3 %; Polychromasia 1+
[2020-04-08 06:38] LABS: Alanine Aminotransferase 10 U/L (12-78); Albumin Globulin Ratio 0.6 (0.9-2); Albumin Level 1.7 gm/dl (3.4-5.0); Alkaline Phosphatase 17 U/L (45-117); Aspartate Aminotransferase 9 U/L (15-37); BUN Creatinine Ratio 16.8 (10-20); Bilirubin,Total 0.8 mg/dl (0.2-1); Blood Urea Nitrogen 9 mg/dl (7-18); Carbon Dioxide 24 mmol/L (21-32); Chloride 109 mmol/L (98-107); Creatinine Clr Calc Pharmacy 181.4 ml/min; Est GFR (African American) > 150.0; Globulin 2.6 gm/dl (2.5-4.0); Glucose 150 mg/dl (70-99); Magnesium 2.2 mg/dl (1.8-2.4); Potassium 4.4 mmol/L (3.5-5.1); Sodium 138 mmol/L (136-145); Total Protein 4.4 gm/dl (6.4-8.2)
[2020-04-08] MEDS: FAMOTIDINE 20 MG TAB PO SCH (08:00)
[2020-04-08] MEDS: APIXABAN 5 MG TABLET PO SCH (08:00)
[2020-04-08] MEDS ORDERED: IRON SUCROSE 200 MG in 0.9 % SODIUM CHLORIDE 100 ML IV ONE (08:45)
[2020-04-08] MEDS: D5NSS + 20MEQ KCL 20 MEQ/1,000 ML BAG IV SCH ×2 (11:49→22:27)
--- NOTE | 2020-04-08 12:04 | Consultation Report ---
DATE OF CONSULTATION: 04/08/2020 REASON FOR CONSULTATION: Severe anemia in a 34-year-old gentleman with history of refractory iron deficiency. HISTORY OF PRESENT ILLNESS: Andrea is a pleasant 34-year-old gentleman with a somewhat complex past medical history including Crohn's disease, duodenal stricture and incisional hernia. Andrea is established with [facility], currently under my care for refractory iron deficiency anemia. In fact, this gentleman had recently received a 400 mg dose of iron sucrose on 03/30/2020. I was very surprised to hear his hemoglobin had dropped precipitously into the 4 gram per deciliter range. He was having obvious symptomatology associated with the anemia and brought to the Emergency Room. This gentleman was also recently diagnosed with a right lower extremity DVT, on 02/25/2020 to be precise. He has been on Eliquis. Since being placed on anticoagulation his hemoglobins have been more fluctuant. The patient has had extensive GI workup; however, I suspect he may be bleeding in the small bowel. Andrea claims he has not seen scott blood on defecation or urination. Despite recent supplementation with iron his ferritin is again heading towards deficient state at 15.5. Hemoglobin was 4.7 and hematocrit 7.2% on presentation. PAST MEDICAL HISTORY: Again, is significant for Crohn's disease, iron deficiency anemia, asthma, duodenal stricture, incisional hernia, left renal vein thrombosis, right iliac vein DVT. PAST SURGICAL HISTORY: Includes duodenal jejunostomy and cholecystectomy, sinus surgeries x5, cardiac catheterization in 1995. MEDICATIONS: Eliquis 5 mg p.o. b.i.d., Humira 40 mg subQ every 2 weeks, famotidine 1 tablet p.o. b.i.d. ALLERGIES: SULFA AND AUGMENTIN. SOCIAL HISTORY: The patient resides with his spouse. He is a nonsmoker, nondrinker, nonsubstance abuser. FAMILY HISTORY: His mother is actually a patient of mine suffering from metastatic breast cancer. REVIEW OF SYSTEMS: Positive for fatigue, decreased exercise tolerance. No fevers, chills or sweats. SKIN: No rashes or lesions. No history of dermatoses. HEENT: Negative for headaches, lightheadedness or dizziness. No dysphagia or sore throat. LYMPH: No history of lymphoproliferative disease. CARDIAC: No history of coronary artery disease. No current angina or palpitations. PULMONARY: Negative for COPD. He does suffer from asthma. He is not acutely short of breath, dyspneic or orthopneic. No cough or hemoptysis. GASTROINTESTINAL: As per HPI. He denies any melena, scott rectal bleeding or hematochezia at the present time. GENITOURINARY: No hematuria, dysuria, urinary incontinence. PSYCHIATRIC: Positive for anxiety. He has no history of psychoses otherwise. MUSCULOSKELETAL: No history of arthritis. No focal muscle weakness. ENDOCRINE: Negative for diabetes or thyroid disease. NEUROLOGIC: Negative for seizure, stroke, or migraine headache. HEMATOLOGIC: Positive for profound anemia and reactive thrombocytosis. History of iron deficiency. PHYSICAL EXAMINATION: GENERAL: Very pleasant 34-year-old gentleman, awake, alert and appropriate, in no acute distress. VITAL SIGNS: Temperature 36.5, pulse 66, respiratory rate 18, blood pressure 95/59. SKIN: Warm, dry, noncyanotic without petechia, rash or ecchymosis. HEENT: Head is atraumatic, normocephalic. Eyes: PERRLA, EOMI. Sclerae nonicteric. No conjunctival injection. Nares are patent without rhinorrhea or discharge. Throat is clear. Tongue is midline. Mucous membranes are moist. NECK: Supple without JVD or thyromegaly. LYMPHATICS: No cervical or supraclavicular palpable nodes. HEART: Regular rate and rhythm. No clicks, rubs, murmurs or gallops. LUNGS: Clear to auscultation bilaterally. ABDOMEN: Soft, nontender, nondistended, without palpable hepatosplenomegaly. EXTREMITIES: No calf tenderness or swelling. No clubbing, cyanosis or edema. MUSCULOSKELETAL: Strength and pulses are equal in all 4 quadrants. NEUROLOGICALLY: He is awake, alert and oriented x3. Cranial nerves II-XII are grossly intact. LABORATORY DATA: Post-transfusion hemoglobin 7.2, hematocrit 23.8%. Chemistries are otherwise unremarkable. PLAN: 1. Severe anemia. 2. Reactive thrombocytosis. 3. Crohn's disease by history. 4. Right lower extremity deep venous thrombosis. 5. Right renal vein thrombosis. PLAN: I was summoned to [facility]' bedside. This gentleman is well established at [facility] with refractory iron deficiency anemia and a very complex bowel pathology. This gentleman has had multiple bowel surgeries as of late. He is now on Humira for Crohn's disease. I have been providing supplemental iron on a monthly basis over the past 4 months. When Andrea was diagnosed with DVT his hemoglobins have become more fluctuant thus obviously suspicious for ongoing bleeding. Perhaps while we have him in house I would like the hospitalist to order a radiolabeled bleeding scan to see if we can isolate the area of concern. He follows with GI people in [place] and at some point may need to return there for definitive surgeries/therapeutics. In the meantime, since he is in house he has received blood; I would like to proceed with another dose of iron sucrose, 400 mg should suffice. Obviously, his H&H should be monitored at least every 8 hours over the next 24-48 hours. My suspicion is Andrea is most likely bleeding somewhere in the small bowel. Would make arrangements for William to receive at least 1, perhaps 2 more units of packed RBCs prior to discharge. I generally do not advocate a Hugo filter; however, in this case with his ongoing bleeding issues, filter placement might be the best option. I would be more than happy to discuss directly with you after you round later on today. Thank you very much for allowing me to participate in his care. If you have any questions or concerns, feel free to contact me at any time. We will continue to follow Andrea periodically during his hospitalization.
--- NOTE | 2020-04-08 15:17 | Nuclear Medicine Report ---
NM GI bleeding CLINICAL HISTORY: GI bleeding of undetermined location COMPARISON STUDY: None TECHNIQUE: Following the IV administration of 26 ( mCi of technetium 99m UltraTag labeled red blood cells, nuclear bleeding scan was performed. Anteri or flow images were obtained every 2 seconds for a total 48 seconds. Anterior static images were obta ined every 5 minutes for a total of 60 minutes. FINDINGS: No extravascular foci of activity are identified to indicate active GI bleeding. IMPRESSION: No scintigraphic evidence of active GI bleeding. ACT 112: Negative or not required by law. Electronically signed by: Jesse Mckeon M.D. 04/08/2020 3:15 PM
[2020-04-08 17:01] LABS: Hematocrit (blood only) 24.2 % (42-52); Hemoglobin 7.2 g/dL (14.0-18.0)
[2020-04-08] MEDS: PANTOprazole 40 MG TAB PO SCH (20:37)
--- NOTE | 2020-04-08 20:53 | Hospitalist Progress Note ---
Date of Service April 08, 2020 Assessment & Plan (1) Acute blood loss anemia: Hb at presentation 4.7 yesterday. Was 8.7 one month prior. Stool is heme+, and stools have been with what sounds like melena. s/p 2 units PRBCs on 04/07. Nuclear GI bleeding scan obtained today -- negative for active bleeding. s/p EGD and colonoscopy at [facility] in late January 2020. Will obtain those records for review. Had ?esophageal/gastric ulcers on EGD. Change H2 omi to Protonix 40mg BID. Clear liquid diet. Repeat CBC in am. If H/H trend down again then GI consultation in am for consideration of repeat EGD. May need additional PRBCs while here. (2) Iron deficiency anemia: Severe. Ferritin 15 on 04/07/20. Iron deficiency is 2nd to malabsorption from duodenojejunostomy state. Venofer 200mg IV x 1 now, and again in am. s/p 2 units PRBCs yesterday. Repeat CBC in am. Appreciate Dr Ignacio's consultation and recommendations. (3) Crohn's disease: Dx about 11 years ago, however biopsies have never been fully conclusive per patient's report. He follows with GI at [facility] in [place]. He has had disease of the proximal small bowel only. He has had duodenojejunostomy, and has a known duodenal stricture - but is able to eat without difficulty. Clearly has severe iron deficiency - likely multifactorial. See above. (4) Duodenal stricture: Duodenal stricture exist just beyond previous surgery site of the duodenojejunostomy. This is causing a backup of fluid into the upper duodenum and stomach but patient still able to eat/drink and has no vomiting. 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 Diagnosed in February at [facility]. Required hospitalization with ultimate placement on apixaban 5 mg p.o. twice daily. Due to significant drop in Hb, heme+ stool, right iliac vein thrombosis - may need IVC filter. Hold apixaban. Consult vascular surgery. (6) Thrombosis of right iliac vein: See above (7) Heme positive stool: see above (8) Ankylosis of thoracic spine: on enbrel, no issues at this time. Admission and Anticipated Discharge Date Admission Date: April 07, 2020 Subjective patient states that dizziness/lightheadedness is resolved s/p 2 units PRBCs overnight. denies any recent BRBPR. stools were "dark", however, over the last few weeks. patient reports that on EGD at [facility] in late January he had "ulcers" in the esophagus/stomach - was told to take OTC H2 omi. had biopsies from area of concern in duodenum -- negative for Crohn's?? he states the humira is actually for anklyosing spondylitis, however. patient reports that he DOES eat a low residue diet and passes this without difficulty. has a normally-formed stool once a day. no diarrhea. had normal colonoscopy at [facility] in January as well. tolerated venofer this am for iron deficiency. Review of Systems Constitutional: no fatigue and no anorexia Respiratory: no dyspnea and no dyspnea on exertion Cardiovascular: + lightheadedness (now resolved ); no chest pain Gastrointestinal: + melena; no abdominal pain, no nausea and no vomiting Physical Exam 2 Constitutional: well developed and well nourished; no acute distress and no altered mental status ENMT: external ear and nose normal, oropharynx normal Respiratory: normal respiratory effort, lungs clear to auscultation Cardiovascular: Rate/Rhythm: regular rate and regular rhythm Heart Sounds: normal S1 and normal S2; no murmur Vessels: posterior tibial pulses present and dorsalis pedis pulses present; no JVD Extremities: no edema Gastrointestinal (Abdomen): normal bowel sounds, soft, nontender, no hepatosplenomegaly Skin: + pallor Psychiatric: A+Ox3, euthymic affect Results & Data Results & Data ([facility]) Vital Signs (Past 12 Hours) Vital Signs Temp Pulse Pulse Resp BP Pulse Ox 04/08/20 19:00 36.4 C L 71 18 100/64 100 04/08/20 16:00 74 Laboratory Results Laboratory Results - last 24 hr 04/07/20 04/07/20 04/08/20 15:02 22:55 05:31 WBC 4.24 L RBC 2.99 L Hgb 7.2 L Hct 23.8 L MCV 79.6 L MCH 24.1 L MCHC 30.3 L RDW Std Deviation 56.1 H RDW Coeff of Jodi 19.0 H Plt Count 355 MPV 10.0 Immature Gran % (Auto) 0.2 Neut % (Auto) 78.3 Lymph % (Auto) 16.3 [place] % (Auto) 5.0 Eos % (Auto) 0.0 Baso % (Auto) 0.2 Neut # (Auto) 3.32 Lymph # (Auto) 0.69 L [place] # (Auto) 0.21 Eos # (Auto) 0.00 Baso # (Auto) 0.01 Immature Gran # (Auto) 0.01 Polychromasia 1+ Hypochromasia Present Sodium Potassium Chloride Carbon Dioxide Anion Gap BUN Creatinine Est Cr Clr Drug Dosing Est GFR ( Amer) Est GFR (Non-Af Amer) BUN/Creatinine Ratio Glucose Calcium Phosphorus 3.6 Magnesium Total Bilirubin AST ALT Alkaline Phosphatase Total Protein Albumin Globulin Albumin/Globulin Ratio Stool Occult Bld Scrn IgA Tiss Transglutamin IgA Celiac Disease Interp Blood Type A Positive Antibody Screen NEGATIVE Crossmatch See Detail 04/08/20 04/08/20 04/08/20 05:31 16:50 16:50 WBC RBC Hgb 7.2 L Hct 24.2 L MCV MCH MCHC RDW Std Deviation RDW Coeff of Jodi Plt Count MPV Immature Gran % (Auto) Neut % (Auto) Lymph % (Auto) [place] % (Auto) Eos % (Auto) Baso % (Auto) Neut # (Auto) Lymph # (Auto) [place] # (Auto) Eos # (Auto) Baso # (Auto) Immature Gran # (Auto) Polychromasia Hypochromasia Sodium 138 Potassium 4.4 D Chloride 109 H Carbon Dioxide 24 Anion Gap 5.0 BUN 9 Creatinine 0.55 L Est Cr Clr Drug Dosing 181.4 Est GFR ( Amer) > 150.0 Est GFR (Non-Af Amer) 135.0 BUN/Creatinine Ratio 16.8 Glucose 150 H Calcium 8.0 L Phosphorus Magnesium 2.2 Total Bilirubin 0.8 D AST 9 L ALT 10 L Alkaline Phosphatase 17 L Total Protein 4.4 L Albumin 1.7 L Globulin 2.6 Albumin/Globulin Ratio 0.6 L Stool Occult Bld Scrn IgA Pending Tiss Transglutamin IgA Pending Celiac Disease Interp Pending Blood Type Antibody Screen Crossmatch 04/08/20 18:00 WBC RBC Hgb Hct MCV MCH MCHC RDW Std Deviation RDW Coeff of Jodi Plt Count MPV Immature Gran % (Auto) Neut % (Auto) Lymph % (Auto) [place] % (Auto) Eos % (Auto) Baso % (Auto) Neut # (Auto) Lymph # (Auto) [place] # (Auto) Eos # (Auto) Baso # (Auto) Immature Gran # (Auto) Polychromasia Hypochromasia Sodium Potassium Chloride Carbon Dioxide Anion Gap BUN Creatinine Est Cr Clr Drug Dosing Est GFR ( Amer) Est GFR (Non-Af Amer) BUN/Creatinine Ratio Glucose Calcium Phosphorus Magnesium Total Bilirubin AST ALT Alkaline Phosphatase Total Protein Albumin Globulin Albumin/Globulin Ratio Stool Occult Bld Scrn Positive A IgA Tiss Transglutamin IgA Celiac Disease Interp Blood Type Antibody Screen Crossmatch PG Care Time/CCT Total # of Minutes Spent Total Time Spent with Patient: Total time spent is greater than 50% in coordination of care (as documented) at patient's floor/unit and/or counseling patient: Coding Level of Care Code 36663 Subseq Hosp Care Lvl 3 Diagnoses Acute blood loss anemia D62 Iron deficiency anemia D50.9 Iron deficiency anemia type: unspecified iron deficiency Crohn's disease K50.019 Gastrointestinal tract location: small intestine Digestive disease complication type: unspecified complication Duodenal stricture K31.5 Thrombosis of left renal vein I82.3 Thrombosis of right iliac vein I82.421 Heme positive stool R19.5 Ankylosis of thoracic spine M43.24 (1) Iron deficiency anemia Iron deficiency anemia type: unspecified iron deficiency Qualified Code(s): D50.9 - Iron deficiency anemia, unspecified (2) Crohn's disease Gastrointestinal tract location: small intestine Digestive disease complication type: unspecified complication Qualified Code(s): K50.019 - Crohn's disease of small intestine with unspecified complications
[2020-04-09 07:00] LABS: Hemoglobin 6.7 g/dL (14.0-18.0); Mean Corpuscular Hemoglobin 23.5 pg (25-34); Mean Corpuscular Hgb Conc 29.1 g/dL (32-36); Mean Corpuscular Volume 80.7 fL (80-100); Mean Platelet Volume 10.3 fL (7.4-10.4); Nucleated RBC # (auto) 0.02 K/uL (0-0); Nucleated RBC % (auto) 0.3 %; Platelet Count 330 K/uL (130-400); RDW Coefficient of Variation 19.4 % (11.5-14.5); RDW Standard Deviation 57.6 fL (36.4-46.3); Red Blood Count 2.85 M/uL (4.7-6.1); White Blood Count 5.36 K/uL (4.8-10.8)
[2020-04-09 07:25] LABS: Anisocytosis Present; Basophils # (auto) 0.02 K/uL (0-0.2); Basophils % (auto) 0.4 %; Eosinophils # (auto) 0.21 K/uL (0-0.5); Eosinophils % (auto) 3.9 %; Immature Granulocytes # (auto) 0.02 K/uL (0.00-0.02); Immature Granulocytes % (auto) 0.4 %; Lymphocytes # (auto) 1.41 K/uL (1.2-3.4); Lymphocytes % (auto) 26.3 %; Monocytes # (auto) 0.53 K/uL (0.11-0.59); Monocytes % (auto) 9.9 %; Neutrophils # (auto) 3.17 K/uL (1.4-6.5); Neutrophils % (auto) 59.1 %; Polychromasia 1+
[2020-04-09 07:27] LABS: Albumin Level 1.6 gm/dl (3.4-5.0); BUN Creatinine Ratio 24.3 (10-20); Calcium 7.5 mg/dl (8.5-10.1); Creatinine Clr Calc Pharmacy 163.5 ml/min; Est GFR (Non-African American) 129.4; Magnesium 1.9 mg/dl (1.8-2.4); Potassium 4.1 mmol/L (3.5-5.1)
[2020-04-09 07:30] LABS: Albumin Globulin Ratio 0.7 (0.9-2); Bilirubin,Total 0.5 mg/dl (0.2-1); Globulin 2.4 gm/dl (2.5-4.0)
[2020-04-09] MEDS ORDERED: IRON SUCROSE 200 MG in 0.9 % SODIUM CHLORIDE 100 ML IV ONE (07:30)
[2020-04-09] MEDS ORDERED: SODIUM CHLORIDE 0.9% 250 ML IV PRN ×2 (08:07→12:39)
--- NOTE | 2020-04-09 08:09 | Hospitalist Progress Note ---
Date of Service April 09, 2020 Assessment & Plan (1) Gastric ulcer with hemorrhage: s/p EGD today by Dr Tam for severe, acute blood loss anemia with Fe deficiency. EGD revealed large, cratered gastric ulcer with visible vessel. Dr Tam intervened on ulcer. Esophagus and duodenum w/o source of bleeding. PPI drip x 72 hours (d/c PO PPI now). Clears ok with GI. Tx 2 units PRBCs today. Repeat H/H tonight, then CBC in am. Await biopsies. (2) Upper GI bleed: 2nd to gastric ulcer see above (3) Acute blood loss anemia: 2nd to large, bleeding gastric ulcer -- see above. Hb 6.7 this am -- Tx 2 units PRBCs. H/H tonight; then cbc am. EGD from [facility] 01/2020 reviewed -- esophagitis noted on that EGD; none seen today. Total of 4 units of PRBCs since admission. (4) Iron deficiency anemia: Severe. Ferritin 15 on 04/07/20. Iron deficiency is 2nd to malabsorption from duodenojejunostomy state as well as acute gi bleeding. Venofer 200mg IV x 1 again today. Then repeat venofer 200mg tomorrow am. Repeat CBC in am. Appreciate Dr Ignacio's consultation and recommendations. (5) Crohn's disease: Dx about 11 years ago, however biopsies have never been fully conclusive. Biopsy from duodenum dated 01/2020 from EGD showed "chronic inflammation" of duodenum. He follows with GI at [facility] in [place]. He has had disease of the proximal small bowel only. He has had duodenojejunostomy, and has a known duodenal stricture - but is able to eat without difficulty. Clearly has severe iron deficiency - likely multifactorial. See above. (6) Duodenal stricture: Duodenal stricture exists just beyond previous surgical site of the duodenojejunostomy. This is causing a backup of fluid into the upper duodenum and stomach but patient still able to eat/drink and has no vomiting. 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 Diagnosed in February at [facility]. Required hospitalization with ultimate placement on apixaban 5 mg p.o. twice daily. Due to significant drop in Hb, heme+ stool, etc -- eliquis placed on hold. Dr Henao from vascular surgery consulted today -- appreciate his expertise and recommendations. At this time will hold off on IVC filter - she is formal consult note for rationale. I spoke with Dr Ignacio today - could consider lower dose eliquis 2.5mg BID OR cou madin. Will discuss again tomorrow. (8) Thrombosis of right iliac vein: See above (9) Ankylosis of thoracic spine: on enbrel, no issues at this time. (10) Nutcracker phenomenon of renal vein: see discussion above under left renal vein thrombosis 45 minutes spend today coordinating care between vascular surgery, [facility], and heme/onc; outside records reviewed; anemia management. Admission and Anticipated Discharge Date Admission Date: April 07, 2020 Subjective saw patient before going down for EGD. he was resting comfortably. no new complaints. no overt GI bleeding. denies dizziness. denies abd pain. I discussed with him my conversations with GI, heme/onc, and vascular surgery. initially an IVC filter was being considered but it would have to be supra-renal in the IVC and this would be risky. he voiced understanding. he tolerated the IV venofer again this am. Review of Systems Constitutional: no fatigue and no weakness Respiratory: no dyspnea on exertion Cardiovascular: no chest pain and no lightheadedness Gastrointestinal: no abdominal pain, no nausea and no vomiting Physical Exam Constitutional: well developed and well nourished; no acute distress and no altered mental status ENMT: external ear and nose normal, oropharynx normal Respiratory: normal respiratory effort, lungs clear to auscultation Cardiovascular: Rate/Rhythm: regular rate and regular rhythm Heart Sounds: normal S1 and normal S2; no murmur Vessels: posterior tibial pulses present and dorsalis pedis pulses present; no JVD Extremities: no edema Gastrointestinal (Abdomen): normal bowel sounds, soft, nontender, no hepatosplenomegaly Skin: + pallor Psychiatric: A+Ox3, euthymic affect Results & Data Results & Data ([facility]) Vital Signs (Past 12 Hours) Vital Signs Temp Pulse Pulse Resp BP Pulse Ox 04/09/20 07:24 36.4 C L 65 70 18 94/60 L 100 04/09/20 03:00 36.5 C 71 18 88/56 L 99 04/09/20 00:00 73 04/08/20 22:00 36.8 C 75 20 99/63 L 96 Laboratory Results Laboratory Results - last 24 hr 04/07/20 04/08/20 04/08/20 15:02 16:50 16:50 WBC RBC Hgb 7.2 L Hct 24.2 L MCV MCH MCHC RDW Std Deviation RDW Coeff of Jodi Plt Count MPV Immature Gran % (Auto) Neut % (Auto) Lymph % (Auto) [place] % (Auto) Eos % (Auto) Baso % (Auto) Neut # (Auto) Lymph # (Auto) [place] # (Auto) Eos # (Auto) Baso # (Auto) Immature Gran # (Auto) Absolute Nucleated RBC Nucleated RBC % (auto) Polychromasia Anisocytosis Sodium Potassium Chloride Carbon Dioxide Anion Gap BUN Creatinine Est Cr Clr Drug Dosing Est GFR ( Amer) Est GFR (Non-Af Amer) BUN/Creatinine Ratio Glucose Calcium Magnesium Total Bilirubin AST ALT Alkaline Phosphatase Total Protein Albumin Globulin Albumin/Globulin Ratio Stool Occult Bld Scrn IgA Pending Tiss Transglutamin IgA Pending Celiac Disease Interp Pending Crossmatch See Detail 04/08/20 04/09/20 04/09/20 18:00 06:12 06:12 WBC 5.36 RBC 2.85 L Hgb 6.7 L* Hct 23.0 L MCV 80.7 MCH 23.5 L MCHC 29.1 L RDW Std Deviation 57.6 H RDW Coeff of Jodi 19.4 H Plt Count 330 MPV 10.3 Immature Gran % (Auto) 0.4 Neut % (Auto) 59.1 Lymph % (Auto) 26.3 [place] % (Auto) 9.9 Eos % (Auto) 3.9 Baso % (Auto) 0.4 Neut # (Auto) 3.17 Lymph # (Auto) 1.41 [place] # (Auto) 0.53 Eos # (Auto) 0.21 Baso # (Auto) 0.02 Immature Gran # (Auto) 0.02 Absolute Nucleated RBC 0.02 H Nucleated RBC % (auto) 0.3 Polychromasia 1+ Anisocytosis Present Sodium 141 Potassium 4.1 Chloride 112 H Carbon Dioxide 24 Anion Gap 5.0 BUN 15 D Creatinine 0.61 Est Cr Clr Drug Dosing 163.5 Est GFR ( Amer) 150.0 Est GFR (Non-Af Amer) 129.4 BUN/Creatinine Ratio 24.3 H Glucose 86 Calcium 7.5 L Magnesium 1.9 Total Bilirubin 0.5 AST 5 L ALT 11 L Alkaline Phosphatase 14 L Total Protein 4.0 L Albumin 1.6 L Globulin 2.4 L Albumin/Globulin Ratio 0.7 L Stool Occult Bld Scrn Positive A IgA Tiss Transglutamin IgA Celiac Disease Interp Crossmatch PG Care Time/CCT Total # of Minutes Spent Total Time Spent with Patient: Total time spent is greater than 50% in coordination of care (as documented) at patient's floor/unit and/or counseling patient: Coding Level of Care Code 63979 Subseq Hosp Care Lvl 3 Diagnoses Gastric ulcer with hemorrhage K25.0 Gastric ulcer chronicity: acute Upper GI bleed K92.2 Acute blood loss anemia D62 Iron deficiency anemia D50.9 Iron deficiency anemia type: unspecified iron deficiency Crohn's disease K50.019 Digestive disease complication type: unspecified complication Gastrointestinal tract location: small intestine Duodenal stricture K31.5 Thrombosis of left renal vein I82.3 Thrombosis of right iliac vein I82.421 Ankylosis of thoracic spine M43.24 Nutcracker phenomenon of renal vein I87.1 (1) Crohn's disease Digestive disease complication type: unspecified complication Gastrointestinal tract location: small intestine Qualified Code(s): K50.019 - Crohn's disease of small intestine with unspecified complications (2) Iron deficiency anemia Iron deficiency anemia type: unspecified iron deficiency Qualified Code(s): D50.9 - Iron deficiency anemia, unspecified (3) Gastric ulcer with hemorrhage Gastric ulcer chronicity: acute Qualified Code(s): K25.0 - Acute gastric u lcer with hemorrhage
[2020-04-09] MEDS: D5NSS + 20MEQ KCL 20 MEQ/1,000 ML BAG IV SCH ×2 (08:43→18:53)
--- NOTE | 2020-04-09 09:20 | Gastrointestinal Consultation ---
Date of Consultation April 09, 2020 Assessment & Plan (1) Iron deficiency anemia: (2) Crohn's disease: 1. NPO for now. 2. Await pending COVID-19 testing. 3. EGD with Dr. Tam today for further evaluation. 4. Continue supportive care. Additional recommendations will be made pending results of testing. Thank you for allowing us to participate in the care of this pleasant patient. If you have any questions or concerns, please do not hesitate to contact us. Supervising Physician Co-Signing Physician Notes I personally evaluated the patient and agree with the findings as documented by LUZ MARIA Wilson Exam: abd: soft, nt, nd Proceed with EGD. risks/benefits and procedure discussed with patient, who agrees to proceed History of Present Illness Reason for Consultation: Severe anemia Requesting Physician: Dr. Nayak Attending Physician: Jeancarlos Nayak History of Present Illness Patient is a pleasant 34 year-old male with an established diagnosis of Crohn's disease and associated SAMUEL admitted with a hemoglobin of 4.8 which was found at Dr. Ignacio's office. He typically follows with [facility] for his chronic management. States that his Crohn's diagnosis has been questioned although he states he did have chronic inflammation noted in his small bowel on biopsy during recent endoscopic work up performed at [facility] on 02/22/2020. He has had multiple abdominal surgeries in the past due to stenosis and bowel obstructions. He states he has a pending bowel resection surgery planned at [facility] to be performed by Dr. Becerra in the near future. He remains on Humira 40 mg i njected subcutaneously every other week but states the medication was prescribed initially due to his comorbid condition of ankylosing spondylitis not Crohn's disease. He also remains on Eliquis due to history of thrombosis of the left renal vein. He offers no specific GI complaints but does endorse prior bloating and gas. Denies any abdominal pain, nausea/vomiting, diarrhea, constipation or overt GIB. H&H at present remains 6.7/23%. GIB scan yesterday was negative. CT a/p with questionable gastric outlet obstruction and malrotation of the upper small bowel as well as postoperative surgical changes involving the duodenum/jejunum. Allergies Allergy/AdvReac Type Severity Reaction Status Date / Time amoxicillin [From Augmentin] Allergy Mild Rash Verified 04/07/20 16:23 clavulanic acid AdvReac Mild Rash Verified 04/07/20 16:23 [From Augmentin] Sulfa (Sulfonamide AdvReac Mild Rash Verified 04/07/20 16:23 Antibiotics) Home Medications Home Medications Medication Instructions Recorded Confirmed Type adalimumab [Humira Pen] 40 mg SUBCUT .[id number] 04/07/20 04/07/20 History apixaban [Eliquis] 5 mg PO BID 04/07/20 04/07/20 History famotidine-Ca carb-mag hydrox 1 tab PO BID 04/07/20 04/07/20 History [Pepcid Complete] Patient History Medical History Allergic rhinitis Ankylosis of thoracic spine Anxiety Asthma Crohn's disease Duodenal stricture History of small bowel obstruction Incisional hernia Iron deficiency anemia 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 Surgical History History of cholecystectomy History of resection of small bowel Hx of sinus surgery Social History Smoking Status: Never smoker Hx Alcohol Use: No Hx Substance Use: No Preferred Language: Citizen Of [place] Communication Ability: Effective Mixer Lever Operator Required: No Beliefs That Will Affect Care: None Current Living Situation: Spouse and Family Feels Safe at Home: Yes Safety Concerns: Feels Safe At This Time Assistive Devices: Glasses Review of Systems Review of Systems: All systems reviewed & are unremarkable except as noted in HPI & below Physical Exam Constitutional: WD/WN, vitals as above Eyes: EOM intact bilaterally Neck: normal appearance Respiratory: normal respiratory effort, lungs clear to auscultation Cardiovascular: Rate/Rhythm: regular rate and regular rhythm Heart Sounds: no gallop and no murmur Gastrointestinal (Abdomen): Inspection/Auscultation: normal bowel sounds and + abdominal surgical scar Percussion/Palpation: abdomen soft; abdomen nontender Musculoskeletal: Extremities: no cyanosis no lower extremity edema Skin: no rashes, warm and dry Neurologic: moves all extremities Psychiatric: A+Ox3, euthymic affect Results & Data ([place]) Vital Signs (Past 12 Hours) Vital Signs Temp Pulse Pulse Resp BP BP Pulse Ox 04/09/20 09:09 36.5 C 59 L 17 94/51 L 96 10/14/20 07:24 36.4 C L 65 70 18 94/60 L 100 04/09/20 03:00 36.5 C 71 18 88/56 L 99 04/09/20 00:00 73 04/08/20 22:00 36.8 C 75 20 99/63 L 96 PG Care Time/CCT Total # of Minutes Spent Total Time Spent with Patient: Total time spent is greater than 50% in coordination of care (as documented) at patient's floor/unit and/or counseling patient: Coding Level of Care Code 58729 Inpt Consult Level 4 Diagnoses Iron deficiency anemia D50.9 Iron deficiency anemia type: unspecified iron deficiency Crohn's disease K50.019 Digestive disease complication type: unspecified complication Gastrointestinal tract location: small intestine (1) Crohn's disease Digestive disease complication type: unspecified complication Gastrointe stinal tract location: small intestine Qualified Code(s): K50.019 - Crohn's disease of small intestine with unspecified complications (2) Iron deficiency anemia Iron deficiency anemia type: unspecified iron deficiency Qualified Code(s): D50.9 - Iron deficiency anemia, unspecified
--- NOTE | 2020-04-09 09:34 | Anesthesiology Consultation ---
Date of Service April 09, 2020 Assessment & Plan (1) Encounter for pre-operative examination: Chart Review Chart Review: Acceptable Risk for Surgery Consults Requested none ASA ASA3 Proposed Anesthesia Anesthesia Type: MAC Risk / Benefits Reviewed With: PT / POA / Parent / Guardian, Accepts Plan and Informed Consent Obtained History Surgery Operation Date: 04/09/20 16:30 Proposed Procedures p Esophagogastroduodenoscopy Dr. Anel Tam MD Height/Weight Height: 5 ft 8 in Weight: 76.3 kg Allergies Allergy/AdvReac Type Severity Reaction Status Date / Time amoxicillin [From Augmentin] Allergy Mild Rash Verified 04/07/20 16:23 clavulanic acid AdvReac Mild Rash Verified 04/07/20 16:23 [From Augmentin] Sulfa (Sulfonamide AdvReac Mild Rash Verified 04/07/20 16:23 Antibiotics) Medications Home Medications Medication Instructions Recorded Confirmed Last Taken adalimumab [Humira Pen] 40 mg SUBCUT .[id number] 04/07/20 04/07/20 03/31/20 apixaban [Eliquis] 5 mg PO BID 04/07/20 04/07/20 04/07/20 08:00 famotidine-Ca carb-mag hydrox 1 tab PO BID 04/07/20 04/07/20 04/07/20 08:00 [Pepcid Complete] Active Medications Generic Name Dose Route Start Last Admin Trade Name Freq PRN Reason Stop Dose Admin Apixaban 5 mg 04/07/20 22:44 04/08/20 08:00 Apixaban 5 Mg Tablet PO 05/07/20 22:43 5 mg BID RAFAEL Administration Potassium Chloride/Dextrose/Sod Cl 20 meq in 1,000 mls @ 100 mls/hr 04/07/20 22:44 04/09/20 08:43 D5nss + 20meq Kcl IV 05/07/20 22:43 100 mls/hr .Q10H RAFAEL Administration Pantoprazole Sodium 40 mg 04/08/20 21:00 04/09/20 10:21 Pantoprazole 40 Mg Tab PO 05/08/20 20:59 Not Given BID RAFAEL Past Medical History Medical History Allergic rhinitis Ankylosis of thoracic spine Anxiety Asthma Crohn's disease Duodenal stricture History of small bowel obstruction Incisional hernia Iron deficiency anemia 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 Exercise / Class Metabolic Activity II 4-5 Yardwork/Stairs/Walk up hill Past Surgical History Surgical History History of cholecystectomy History of resection of small bowel Hx of sinus surgery Past Anesthesia History No Hx of Anesthesia Complications and No Family Hx of Anesthesia Complications History of PONV No Hx of PONV and No Hx of Motion Sickness Social History Smoking Status: Never smoker Hx Alcohol Use: No Hx Substance Use: No substance use type: does not use Physical Exam Vital Signs Last Vital Signs Temp 98.2 F 04/09/20 11:04 Pulse 71 04/09/20 11:04 Resp 20 04/09/20 11:04 BP 104/64 04/09/20 11:04 Pulse Ox 100 04/09/20 11:04 ENMT Mouth: no dentition abnormality Thyromental Distance: > or= 3.5 Finger Breadths Mallampati Class: II Neck normal visual inspection Respiratory normal respiratory effort Auscultation: lungs clear to auscultation bilaterally Cardiovascular Rate/Rhythm: regular rate and regular rhythm Testing Laboratory Results 04/09/20 06:12 04/09/20 06:12 PT 10.6 Seconds (9.0-12.0) 04/07/20 15:02 INR 1.0 (0.9-1.1) 04/07/20 15:02 APTT < 20.0 Seconds (21.0-31.0) L 04/07/20 15:02 Urine Color Yellow 04/07/20 18: Urine Appearance Clear (Clear) 04/07/20 18: Urine pH 5.0 (4.5-7.5) 04/07/20 18:01 Ur Specific [place] 1.015 (1.000-1.030) 04/07/20 18:01 Urine Protein Negative (Negative) 04/07/20 18: Urine Glucose (UA) Negative (Negative) 04/07/20 18:01 Urine Ketones Negative (Negative) 04/07/20 18:01 Urine Nitrite Negative (Negative) 04/07/20 18:01 Ur Leukocyte Esterase Negative (Negative) 04/07/20 18: Blood Type A Positive 04/07/20 15:02 Antibody Screen NEGATIVE 04/07/20 15:02 Electrocardiogram Date: 04/07/20 Sinus tachycardia, rate 120 bpm Otherwise normal ECG No previous ECGs available Confirmed by Johnson Burgess ([id number]) on 04/07/2020 4:15:07 PM Chest X-Ray Date: 04/07/20 Findings: + NAD
--- NOTE | 2020-04-09 09:34 | Progress Notes ---
DATE: 04/09/2020 HEMATOLOGY PROGRESS NOTE DIAGNOSES: 1. Severe anemia. 2. Reactive thrombocytosis. 3. Crohn disease by history. 4. Right lower extremity deep venous thrombosis. 5. Right renal vein thrombosis. SUBJECTIVE: Andrea was seen and examined at bedside. He is currently receiving IV iron. He received a couple units of packed RBCs, which resulted in improvement in hemoglobin; however, once again trending downward. Fecal occult blood testing was indeed positive. Surprisingly, bleeding scan did not reveal active gastrointestinal bleeding. Thus, perhaps gastroenterology may consider camera endoscopy in this case as this gentleman has been scoped both upper and lower revealing no active source of bleeding. Perhaps he suffers from AVMs that bleed intermittently. Nonetheless, I am convinced there is active bleeding and further investigation should be done. Clinically, he is feeling better. Nursing reports no overnight difficulties. OBJECTIVE: GENERAL: A very pleasant 34-year-old gentleman, awake, alert and appropriate, in no acute distress. VITAL SIGNS: Temperature 36.4, pulse 70, respiratory rate 18, blood pressure 94/60. SKIN: Without rash or lesion. HEENT: Oral mucosa without erythema or ulceration. HEART: Regular rate and rhythm. LUNGS: Clear to auscultation. ABDOMEN: Soft, nontender, nondistended. EXTREMITIES: No clubbing, cyanosis or edema. NEUROLOGIC: He is grossly intact. LABORATORY DATA: WBC count 5360, hemoglobin 6.7, platelet count 330,000. Sodium 141, potassium 4.1, chloride 112, carbon dioxide 24, creatinine 0.61, BUN 15, albumin 1.6. IMPRESSION: 1. Severe anemia. 2. Reactive thrombocytosis. 3. Iron-deficiency anemia. 4. Hypoalbuminemia. 5. Right lower extremity deep vein thrombosis. 6. Right renal vein thrombosis. PLAN: Again, somewhat disappointed with the bleeding scan result. I am convinced this gentleman is bleeding somewhere. He also, not surprisingly, has severe hypoalbuminemia that should be addressed as well. Perhaps provide 25% albumin daily for the next couple of days while he is being worked up. I spoke to Dr. Nayak about the prospect of putting a Hugo filter. While I am not a big fan of filter placement, certainly in this circumstance, bleeding is exacerbated with Mr. Whitley on anticoagulation. Thus, I feel compelled to proceed with a filter at this juncture. Agree with IV iron and perhaps transfusion of 2 more units of blood. Thank you very much for allowing me to participate in his care. I will continue to follow along with you during his hospitalization.
[2020-04-09] MEDS: PANTOprazole 40 MG TAB PO SCH (10:21)
[2020-04-09] MEDS ORDERED: PROPOFOL IV EMULSION 10 MG/ML 20 ML VIAL IV ONE (12:25)
[2020-04-09] MEDS ORDERED: ONDANSETRON INJ 2 MG/ML 2 ML VIAL ONE (12:25)
[2020-04-09] MEDS ORDERED: LIDOCAINE HCL 2% 2 ML VIAL/AMP(20MG/ML) INFIL ONE (12:25)
[2020-04-09] MEDS ORDERED: PHENYLEPHRINE 100MCG/ML 5ML SYR ONE (12:27)
--- NOTE | 2020-04-09 12:31 | GI REPORT ---
Patient Name: Andrea Whitley Procedure Date: 04/09/2020 12:04 PM Date of : 1985 Admit Type: Inpatient Age: 34 Gender: Male Attending MD: Gigi Tam MD Procedure: Upper GI endoscopy Providers: Gigi Tam MD Referring MD: Heri Ignacio Do, Jonathan R. Siuta Indications: Unexplained iron deficiency anemia, Melena Medicines: Monitored Anesthesia Care Complications: No immediate complications. Estimated blood loss: None. Estimated Blood Loss: Estimated blood loss: none. Estimated blood loss: none. Procedure: Pre-Anesthesia Assessment: - Prior Anticoagulants: The patient has taken Eliquis (apixaban), last dose was 1 day prior to procedure. - ASA Grade Assessment: II - A patient with mild systemic disease. After obtaining informed consent, the endoscope was passed under direct vision. Throughout the procedure, the patient's blood pressure, pulse, and oxygen saturations were monitored continuously. The scope was introduced through the mouth, and advanced to the second part of duodenum. The upper GI endoscopy was accomplished without difficulty. The patient tolerated the procedure well. Findings: The examined esophagus was normal. Diffuse severe inflammation characterized by erythema was found in the stomach. Biopsies were taken with a cold forceps for Helicobacter pylori testing. Estimated blood loss: none. One oozing cratered gastric ulcer with a visible vessel was found at the pylorus. Area was successfully injected with 8 mL of a 1:10,000 solution of epinephrine for hemostasis. For hemostasis, two hemostatic clips were successfully placed. There was no bleeding at the end of the procedure. Estimated blood loss: none. The examined duodenum was normal. post surgical changes were noted including anastomosis. Impression: - Normal esophagus. - Gastritis. Biopsied. - Oozing gastric ulcer with a visible vessel. Injected. Clips were placed. - Normal examined duodenum. Recommendation: - [facility]. - Clear liquid diet today. -complete 72 hours of protonix drip, then protonix 40 mg BID thereafter for at least 3 months. -repeat EGD in 2 months to reassess for ulcer healing - Await pathology results. Gigi Tam MD 04/09/2020 12:31:19 PM This report has been signed electronically. Note Initiated On: 04/09/2020 12:04 PM Number of Addenda: 0 I attest to the content of the Intraoperative Record and orders documented therein, exceptions below {[id number]}
[2020-04-09] MEDS ORDERED: PANTOPRAZOLE BOLUS/DRIP 1 EA IV STA (12:39)
[2020-04-09] MEDS ORDERED: PANTOprazole 80 MG in DEXTROSE 5% 100 ML IV ONE (13:00)
--- NOTE | 2020-04-09 13:07 | Anesthesiology Progress Note ---
Date of Service April 09, 2020 Anesthesia Post Procedure Vital Signs Vital Signs: Temp Pulse Pulse Pulse Resp BP BP 04/09/20 12:48 67 16 103/54 L 04/09/20 12:35 82 16 97/52 L 04/09/20 11:35 98.1 F 76 20 128/85 04/09/20 11:04 98.2 F 71 20 104/64 04/09/20 10:38 98.1 F 71 16 95/56 L 04/09/20 10:10 98.1 F 71 16 95/56 L 04/09/20 09:40 97.9 F 70 16 95/60 L 04/09/20 09:25 98.2 F 69 16 93/56 L 04/09/20 09:24 97.9 F 59 L 17 103/65 04/09/20 09:09 97.7 F 59 L 17 94/51 L 04/09/20 07:24 97.5 F L 65 70 18 94/60 L 04/09/20 03:00 97.7 F 71 18 88/56 L 04/09/20 00:00 73 04/08/20 22:00 98.2 F 75 20 99/63 L 04/08/20 19:00 97.5 F L 71 18 100/64 04/08/20 16:00 74 Pulse Ox 04/09/20 12:48 100 04/09/20 12:35 100 04/09/20 11:35 100 04/09/20 11:04 100 04/09/20 10:38 100 04/09/20 10:10 100 04/09/20 09:40 100 04/09/20 09:25 100 04/09/20 09:24 100 04/09/20 09:09 96 04/09/20 07:24 100 04/09/20 03:00 99 04/09/20 00:00 04/08/20 22:00 96 04/08/20 19:00 100 04/08/20 16:00 Transfer of Care Handoff Completed per policy Notes Mental Status: alert / awake / arousable and participated in evaluation Patient Amnestic to Procedure: Yes Nausea / Vomiting: adequately controlled Pain: adequately controlled Airway Patency, RR, SpO2: stable & adequate BP & HR: stable & adequate Hydration State: stable & adequate Anesthetic Complications: no major complications apparent and Pt Satisfied with anesthetic care
[2020-04-09] MEDS: PANTOprazole 40 MG in DEXTROSE 5% 100 ML IV SCH ×3 (14:02→23:20)
--- NOTE | 2020-04-09 14:13 | Consultation ---
Date of Consultation April 09, 2020 Assessment & Plan (1) Nutcracker phenomenon of renal vein: At this point no treatment is needed for his renal vein thrombosis. If he develops significant proteinuria or flank pain from renal congestion then further work-up with a CTV or renal venogram with possible stenting will be recommended. (2) Thrombophlebitis of right internal iliac vein: Due to his GI bleeding consideration was given for a vena cava filter. This filter is usually placed infrarenally. This would not provide any protection for his renal vein thrombus. Filter would need to be placed supra- renal in the area of the hepatic veins which is a fairly large vein. There is a increased risk of migration of filter from that level. I believe at this point being that his iliac vein thrombus and renal vein thrombus was diagnosed in January and they are fairly well fixated to the vein wall. Chance of embolization from these lesions are small. I believe at this point being that he has been treated first GI bleed and found to have a source of his bleeding I believe he can be again anticoagulated. I would consider at least for the short period of time doing Coumadin versus Eliquis being that if he does bleed it could be reversed. As far as length of treatment for this I think that another 6 weeks of treatment would be enough therapy for these thrombotic areas. We will be happy to see him on a as needed basis. Thank you very much for letting us participate in the care of this patient. History of Present Illness Reason for Consultation: Left renal vein and left internal iliac vein thrombosis Attending Physician: Jeancarlos Nayak History of Present Illness This is a pleasant 34-year-old male who in January was found to have a left renal vein thrombus as well as a right internal iliac vein thrombus on CT scan. 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 He was placed on Eliquis. There is a questionable history of Crohn's disease in the past. He was admitted at this time with GI bleeding. The Eliquis was stopped. He was scoped earlier today and found to have a duodenal ulcer with a exposed artery. This was successfully treated. He had no previous history of deep venous thrombosis of the lower extremities. He denies any swelling of the right lower extremity. He does say that he has been in the hospital recently where he was bedridden. He does not remember being treated with Lovenox injections at that time. There is no family history significant of deep venous thrombosis. Allergies Allergy/AdvReac Type Severity Reaction Status Date / Time amoxicillin [From Augmentin] Allergy Mild Rash Verified 04/07/20 16:23 clavulanic acid AdvReac Mild Rash Verified 04/07/20 16:23 [From Augmentin] Sulfa (Sulfonamide AdvReac Mild Rash Verified 04/07/20 16:23 Antibiotics) Home Medications Home Medications Medication Instructions Recorded Confirmed Type adalimumab [Humira Pen] 40 mg SUBCUT .[id number] 04/07/20 04/07/20 History apixaban [Eliquis] 5 mg PO BID 04/07/20 04/07/20 History famotidine-Ca carb-mag hydrox 1 tab PO BID 04/07/20 04/07/20 History [Pepcid Complete] Patient History Medical History Allergic rhinitis Ankylosis of thoracic spine Anxiety Asthma Crohn's disease Duodenal stricture History of small bowel obstruction Incisional hernia Iron deficiency anemia 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 Surgical History History of cholecystectomy History of resection of small bowel Hx of sinus surgery Social History Smoking Status: Never smoker Hx Alcohol Use: No Hx Substance Use: No Preferred Language: Turkmen Communication Ability: Effective Allergist Immunologist Required: No Beliefs That Will Affect Care: None Current Living Situation: Spouse and Family Feels Safe at Home: Yes Safety Concerns: Feels Safe At This Time Assistive Devices: Glasses Review of Systems Review of Systems: All systems reviewed & are unremarkable except as noted in HPI & below Physical Exam Constitutional: WD/WN, vitals as above Respiratory: normal respiratory effort; no respiratory distress Cardiovascular: Rate/Rhythm: regular rate and regular rhythm Extremities: no edema Gastrointestinal (Abdomen): Inspection/Auscultation: abdomen normal to inspection Psychiatric: Orientation: alert and oriented x 3 Results & Data ([facility]) Vital Signs (Past 12 Hours) Vital Signs Temp Pulse Pulse Pulse Resp BP BP 04/09/20 13:24 36.6 C 71 18 112/71 04/09/20 13:22 36.6 C 71 18 112/71 04/09/20 12:48 67 16 103/54 L 04/09/20 12:35 82 16 97/52 L 04/09/20 11:35 36.7 C 76 20 128/85 04/09/20 11:04 36.8 C 71 20 104/64 04/09/20 10:38 36.7 C 71 16 95/56 L 04/09/20 10:10 36.7 C 71 16 95/56 L 04/09/20 09:40 36.6 C 70 16 95/60 L 04/09/20 09:25 36.8 C 69 16 93/56 L 04/09/20 09:24 36.6 C 59 L 17 103/65 04/09/20 09:09 36.5 C 59 L 17 94/51 L 04/09/20 07:24 36.4 C L 65 70 18 94/60 L 04/09/20 03:00 36.5 C 71 18 88/56 L Pulse Ox 04/09/20 13:24 100 04/09/20 13:22 04/09/20 12:48 100 04/09/20 12:35 100 04/09/20 11:35 100 04/09/20 11:04 100 04/09/20 10:38 100 04/09/20 10:10 100 04/09/20 09:40 100 04/09/20 09:25 100 04/09/20 09:24 100 04/09/20 09:09 96 04/09/20 07:24 100 04/09/20 03:00 99
[2020-04-09 20:53] LABS: Hematocrit (blood only) 28.6 % (42-52); Hemoglobin 8.6 g/dL (14.0-18.0)
[2020-04-10] MEDS: D5NSS + 20MEQ KCL 20 MEQ/1,000 ML BAG IV SCH ×3 (03:07→20:26)
[2020-04-10] MEDS: PANTOprazole 40 MG in DEXTROSE 5% 100 ML IV SCH ×4 (05:04→20:24)
[2020-04-10 06:52] LABS: Hemoglobin 8.7 g/dL (14.0-18.0); Mean Corpuscular Hemoglobin 24.6 pg (25-34); Mean Corpuscular Volume 82.2 fL (80-100); Mean Platelet Volume 10.6 fL (7.4-10.4); Platelet Count 339 K/uL (130-400); RDW Coefficient of Variation 18.8 % (11.5-14.5); RDW Standard Deviation 57.2 fL (36.4-46.3); Red Blood Count 3.53 M/uL (4.7-6.1); White Blood Count 7.95 K/uL (4.8-10.8)
[2020-04-10 07:23] LABS: Calcium 7.6 mg/dl (8.5-10.1); Creatinine Clr Calc Pharmacy 148.9 ml/min; Est GFR (African American) 144.3; Est GFR (Non-African American) 124.5; Potassium 3.7 mmol/L (3.5-5.1)
[2020-04-10] MEDS ORDERED: IRON SUCROSE 200 MG in 0.9 % SODIUM CHLORIDE 100 ML IV ONE (07:30)
--- NOTE | 2020-04-10 09:59 | Gastroenterology Progress Note ---
Date of Service April 10, 2020 Assessment & Plan (1) Gastric ulcer with hemorrhage: (2) Upper GI bleed: (3) Crohn's disease: 1. Continue Protonix ggt at 8 mg/hr for a total of 72 hours. Then, switch to Protonix 40 mg BID. 2. Clear liquid diet may be advanced slowly as tolerated. 3. Continue supportive care. 4. Outpatient follow up with primary GI team at [facility] upon discharge. Admission and Anticipated Discharge Date Admission Date: April 07, 2020 Supervising Physician Co-Signing Physician Notes I personally evaluated the patient and agree with the findings as documented by LUZ MARIA Wilson Exam: abd: soft, nt, nd hgb appropriately improving, s/p EGD with hemostasis of pyloric ulcer. continue PPI, will need repeat EGD in 2 months with me. Subjective Patient reports feeling significantly better today with improved energy as his H&H has come up to 8.7/29.0%. EGD yesterday with findings of gastric ulcer with stigmata of bleeding status post hemostasis by Dr. Tam. He remains on a PPI ggt and clear liquid diet. He offers no other complaints or concerns. Review of Systems Review of Systems: All systems reviewed & are unremarkable except as noted in HPI & below Physical Exam Constitutional: WD/WN, vitals as above Respiratory: normal respiratory effort, lungs clear to auscultation Cardiovascular: RRR, no murmur, no edema Gastrointestinal (Abdomen): normal bowel sounds, soft, nontender, no hepatosplenomegaly Psychiatric: A+Ox3, euthymic affect Results & Data Results & Data ([facility]) Vital Signs (Past 12 Hours) Vital Signs Temp Pulse Pulse Resp BP Pulse Ox 04/10/20 07:29 36.7 C 67 18 98/63 L 100 04/10/20 07:21 61 04/10/20 03:34 36.6 C 70 18 107/65 100 04/09/20 22:20 64 04/09/20 22:15 36.8 C 66 16 91/49 L 100 Laboratory Results Abnormal lab results 04/07/20 04/09/20 04/10/20 Range/Units 15:02 20:32 06:24 RBC 3.53 L (4.7-6.1) M/uL Hgb 8.6 L 8.7 L (14.0-18.0) g/dL Hct 28.6 L 29.0 L (42-52) % MCH 24.6 L (25-34) pg MCHC 30.0 L (32-36) g/dL RDW Std Deviation 57.2 H (36.4-46.3) fL RDW Coeff of Jodi 18.8 H (11.5-14.5) % MPV 10.6 H (7.4-10.4) fL Chloride (98-107) mmol/L BUN/Creatinine Ratio (10-20) Calcium (8.5-10.1) mg/dl Crossmatch See Detail 04/10/20 Range/Units 06:24 RBC (4.7-6.1) M/uL Hgb (14.0-18.0) g/dL Hct (42-52) % MCH (25-34) pg MCHC (32-36) g/dL RDW Std Deviation (36.4-46.3) fL RDW Coeff of Jodi (11.5-14.5) % MPV (7.4-10.4) fL Chloride 111 H (98-107) mmol/L BUN/Creatinine Ratio 21.0 H (10-20) Calcium 7.6 L (8.5-10.1) mg/dl Crossmatch PG Care Time/CCT Total # of Minutes Spent Total Time Spent with Patient: Total time spent is greater than 50% in coordination of care (as documented) at patient's floor/unit and/or counseling patient: Coding Level of Care Code 20711 Subseq Hosp Care Lvl 3 Diagnoses Gastric ulcer with hemorrhage K25.0 Gastric ulcer chronicity: acute Upper GI bleed K92.2 Crohn's disease K50.019 Digestive disease complication type: unspecified complication Gastrointestinal tract location: small intestine (1) Crohn's disease Digestive disease complication type: unspecified complication Gastrointestinal tract location: small intestine Qualified Code(s): K50.019 - Crohn's disease of small intestine with unspecified complications (2) Gastric ulcer with hemorrhage Gastric ulcer chronicity: acute Qualified Code(s): K25.0 - Acute gastric ulcer with hemorrhage
[2020-04-10 14:16] LABS: IgA Serum 180 mg/dL (47-310); Tis Trans IgA 1 U/mL
--- NOTE | 2020-04-10 15:25 | Hospitalist Progress Note ---
Date of Service April 10, 2020 Assessment & Plan (1) Gastric ulcer with hemorrhage: s/p EGD 04/[address] Tam for severe, acute blood loss anemia with Fe deficiency. EGD revealed large, cratered gastric ulcer with visible vessel. Dr Tam intervened on ulcer. Esophagus and duodenum w/o source of bleeding. PPI drip x 72 hours; we are at about 24 hours. Clear liquid diet. H/H acceptable today s/p 2 units PRBCs yesterday. Repeat CBC in am. Await biopsies. (2) Upper GI bleed: 2nd to gastric ulcer. see above. no evidence of ongoing, active bleeding. (3) Acute blood loss anemia: 2nd to large, bleeding gastric ulcer -- see above. Hb <5 at admission. Now 8.7. CBC am. EGD from [facility] 01/2020 reviewed -- esophagitis noted on that EGD but no ulcer. Total of 4 units of PRBCs since admission. (4) Iron deficiency anemia: Severe. Ferritin 15 on 04/07/20. Iron deficiency is 2nd to malabsorption from duodenojejunostomy state as well as acute GI bleeding. s/p 3 doses of IV venofer 200mg each since admission. Repeat CBC in am. Repeat ferritin in am. Appreciate Dr Ignacio's consultation and recommendations. (5) Crohn's disease: Dx about 11 years ago, however biopsies have never been fully conclusive. Biopsy from duodenum dated 01/2020 from EGD showed "chronic inflammation" of duodenum. He follows with GI at [facility] in [place]. He has had disease of the proximal small bowel only. He has had duodenojejunostomy, and has a known duodenal stricture - but is able to eat without difficulty. Clearly has severe iron deficiency - likely multifactorial. See above. (6) Duodenal stricture: Duodenal stricture exists just beyond previous surgical site of the duodenojejunostomy. This is causing a backup of fluid into the upper duodenum and stomach but patient still able to eat/drink and has no vomiting. [id number] this likely contributed to development of severe gastric ulcer. Ultimately will need intervention on the stricture in [place]. 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 Diagnosed in February at [facility]. Required hospitalization with ultimate placement on apixaban 5 mg p.o. twice daily. Due to significant drop in Hb, heme+ stool, etc -- eliquis placed on hold. Dr Henao from vascular surgery consulted 04/09 -- appreciate his expertise and recommendations. At this time holding off on IVC filter. Options for anticoagulation -- low-dose eliquis vs coumadin for additional 6 weeks? Will d/w Dr Ignacio. (8) Thrombosis of right iliac vein: See above (9) Ankylosis of thoracic spine: on enbrel, no issues at this time. 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 he now realizes how tired/fatigued he was when his Hb was <5! his energy is much improved. he is tolerating clears. no nausea, emesis, or abd pain. mild amount of liquid stool only. tele overnight wnl. Review of Systems Constitutional: no fatigue and no weakness Respiratory: no dyspnea on exertion Cardiovascular: no chest pain and no lightheadedness Gastrointestinal: no abdominal pain, no nausea and no vomiting Physical Exam Constitutional: well developed and well nourished; no acute distress and no altered mental status ENMT: external ear and nose normal, oropharynx normal Respiratory: normal respiratory effort, lungs clear to auscultation Cardiovascular: Rate/Rhythm: regular rate and regular rhythm Heart Sounds: normal S1 and normal S2; no murmur Vessels: posterior tibial pulses present and dorsalis pedis pulses present; no JVD Extremities: no edema Gastrointestinal (Abdomen): normal bowel sounds, soft, nontender, no hepatosplenomegaly Skin: + pallor (but much better than yesterday's exam) Psychiatric: A+Ox3, euthymic affect Results & Data Results & Data ([facility]) Vital Signs (Past 12 Hours) Vital Signs Temp Pulse Pulse Resp BP Pulse Ox 04/10/20 11:28 36.8 C 68 18 96/60 L 99 04/10/20 07:29 36.7 C 67 18 98/63 L 100 04/10/20 07:21 61 04/10/20 03:34 36.6 C 70 18 107/65 100 Laboratory Results Laboratory Results - last 24 hr 10/12/20 10/13/20 10/14/20 15:02 16:50 20:32 WBC RBC Hgb 8.6 L Hct 28.6 L MCV MCH MCHC RDW Std Deviation RDW Coeff of Jodi Plt Count MPV Sodium Potassium Chloride Carbon Dioxide Anion Gap BUN Creatinine Est Cr Clr Drug Dosing Est GFR ( Amer) Est GFR (Non-Af Amer) BUN/Creatinine Ratio Glucose Calcium IgA 180 Tiss Transglutamin IgA 1 Celiac Disease Interp SEE NOTE Crossmatch See Detail 04/10/20 04/10/20 06:24 06:24 WBC 7.95 RBC 3.53 L Hgb 8.7 L Hct 29.0 L MCV 82.2 MCH 24.6 L MCHC 30.0 L RDW Std Deviation 57.2 H RDW Coeff of Jodi 18.8 H Plt Count 339 MPV 10.6 H Sodium 141 Potassium 3.7 Chloride 111 H Carbon Dioxide 26 Anion Gap 4.0 BUN 14 Creatinine 0.67 Est Cr Clr Drug Dosing 148.9 Est GFR ( Amer) 144.3 Est GFR (Non-Af Amer) 124.5 BUN/Creatinine Ratio 21.0 H Glucose 85 Calcium 7.6 L IgA Tiss Transglutamin IgA Celiac Disease Interp Crossmatch PG Care Time/CCT Total # of Minutes Spent Total Time Spent with Patient: Total time spent is greater than 50% in coordination of care (as documented) at patient's floor/unit and/or counseling patient: Coding Level of Care Code 10110 Subseq Hosp Care Lvl 2 Diagnoses Gastric ulcer with hemorrhage K25.0 Gastric ulcer chronicity: acute Upper GI bleed K92.2 Acute blood loss anemia D62 Iron deficiency anemia D50.9 Iron deficiency anemia type: unspecified iron deficiency Crohn's disease K50.019 Gastrointestinal tract location: small intestine Digestive disease complication type: unspecified complication Duodenal stricture K31.5 Thrombosis of left renal vein I82.3 Thrombosis of right iliac vein I82.421 Ankylosis of thoracic spine M43.24 Nutcracker phenomenon of renal vein I87.1 DVT prophylaxis Z29.9 (1) Gastric ulcer with hemorrhage Gastric ulcer chronicity: acute Qualified Code(s): K25.0 - Acute gastric ulcer with hemorrhage (2) Iron deficiency anemia Iron deficiency anemia type: unspecified iron deficiency Qualified Code(s): D50.9 - Iron deficiency anemia, unspecified (3) Crohn's disease Gastrointestinal tract location: small intestine Digestive disease com plication type: unspecified complication Qualified Code(s): K50.019 - Crohn's disease of small intestine with unspecified complications
[2020-04-11] MEDS: PANTOprazole 40 MG in DEXTROSE 5% 100 ML IV SCH ×5 (01:01→20:33)
[2020-04-11 05:48] LABS: Hematocrit (blood only) 28.5 % (42-52); Hemoglobin 8.6 g/dL (14.0-18.0); Mean Corpuscular Hemoglobin 24.6 pg (25-34); Mean Corpuscular Hgb Conc 30.2 g/dL (32-36); Mean Corpuscular Volume 81.4 fL (80-100); Mean Platelet Volume 9.9 fL (7.4-10.4); Platelet Count 310 K/uL (130-400); RDW Coefficient of Variation 19.3 % (11.5-14.5); RDW Standard Deviation 57.4 fL (36.4-46.3)
[2020-04-11 06:20] LABS: BUN Creatinine Ratio 15.2 (10-20); Calcium 7.5 mg/dl (8.5-10.1); Creatinine Clr Calc Pharmacy 158.3 ml/min; Est GFR (Non-African American) 127.7; Potassium 3.7 mmol/L (3.5-5.1)
[2020-04-11 06:25] LABS: Ferritin 174.1 ng/ml (8-388)
[2020-04-11] MEDS ORDERED: IRON SUCROSE 200 MG in 0.9 % SODIUM CHLORIDE 100 ML IV ONE (09:00)
--- NOTE | 2020-04-11 09:09 | Progress Notes ---
DATE: 04/11/2020 DIAGNOSES: 1. Gastric ulcer with hemorrhage. 2. Refractory iron deficiency anemia. 3. Acute blood loss anemia. 4. Crohn's disease. 5. Duodenal stricture. SUBJECTIVE: The patient was seen and examined at bedside. Patient is in good spirits and anxious to get home as soon as possible. Hemoglobin for the most part has remained stable. The patient is on IV Protonix right now, which is definitely appropriate. There appears to be no external evidence of ongoing hemorrhage. I embraced the idea of placing him on Coumadin and could be discharged as long as his INR is close to 2. He has received several courses of IV iron, which hopefully will replete his deficient stores. Ferritin presently is 174.1. OBJECTIVE: GENERAL: A pleasant 34-year-old gentleman, awake, alert and appropriate. VITAL SIGNS: Temperature 36.6, pulse 61, respiratory rate 18, blood pressure 93/55. SKIN: Without rash or lesion. HEENT: Oral mucosa without erythema or ulceration. HEART: Regular rate and rhythm. LUNGS: Clear to auscultation bilaterally. ABDOMEN: Soft, nontender, nondistended. EXTREMITIES: No clubbing, cyanosis or edema. NEUROLOGIC: He is grossly intact. LABORATORY DATA: WBC count 5400, hemoglobin 8.6, platelet count 310,000. His MCV has improved to a 81.4. Sodium 140, potassium 3.7, chloride 111, carbon dioxide 26, creatinine 0.63, BUN 9. IMPRESSION: 1. Gastric ulcer with hemorrhage. 2. Refractory iron deficiency anemia. 3. Severe anemia attributable to be active gastrointestinal bleeding. 4. Crohn's disease. 5. Duodenal stricture. PLAN: Patient with combination of transfusional and iron support has improved dramatically. He is hemodynamically stable. I believe they are advancing his diet at present. Discussed the possibility of continuing b.i.d. proton pump inhibition with the primary service. Additionally, perhaps maybe even low dose Reglan to improve the patient's motility to prevent acid pulling perhaps just a thought not sure if there is any solid data for science behind that recommendation. Nonetheless, hopefully, his hemoglobin will continue to rise now that his iron stores have been repleted. We will discuss further with Dr. Nayak and make sure the patient has outpatient followup upon discharge. Thank you very much for allowing me to participate in his care.
--- NOTE | 2020-04-11 19:09 | Hospitalist Progress Note ---
Date of Service April 11, 2020 Assessment & Plan (1) Gastric ulcer with hemorrhage: s/p EGD 04/09/[address] Tam for severe, acute blood loss anemia with Fe deficiency. EGD revealed large, cratered gastric ulcer with visible vessel. Dr Tam intervened on ulcer with injection & clips. Esophagus and duodenum w/o source of bleeding. PPI drip x 72 hours; we are just past 48 hours. H/H acceptable and stable today. Repeat CBC in am. Biopsies NEGATIVE for H. pylori and NEGATIVE for cancer. On Tuesday we can d/c PPI drip and transition to PROTONIX 40MG BID. Will need to remain on 40mg BID until time of a repeat EGD in 2 months. (2) Upper GI bleed: 2nd to gastric ulcer. see above. no evidence of ongoing, active bleeding. H/H stable since his last PRBC infusion on 04/09/20. Cont PPI drip. (3) Acute blood loss anemia: 2nd to large, bleeding gastric ulcer -- see above. Hb <5 at admission. Now 8.6. CBC am for stability. EGD from [facility] 01/2020 reviewed -- esophagitis noted on that EGD but no gastric ulcer. Total of 4 units of PRBCs since admission. (4) Iron deficiency anemia: Severe. Ferritin 15 on 04/07/20. Iron deficiency is 2nd to malabsorption from duodenojejunostomy state as well as acute GI bleeding. s/p 4 doses of IV venofer 200mg each since admission (dose #4 was this am). Ferritin this am was 174. Repeat CBC in am. Appreciate Dr Ignacio's consultation and recommendations. Will hold off on additional Fe infusions after this am's dose. OF NOTE - celiac panel was NEGATIVE. (5) Crohn's disease: Dx about 11 years ago, however biopsies have never been fully conclusive. Biopsy from duodenum dated 01/2020 from EGD showed "chronic inflammation" of duodenum. He follows with GI at [facility] in [place]. He has had disease of the proximal small bowel only. He has had duodenojejunostomy, and has a known duodenal stricture - but is able to eat without difficulty. Severe iron deficiency - likely multifactorial. See above. (6) Duodenal stricture: Duodenal stricture exists just beyond previous surgical site of the duodenojejunostomy. This is causing a backup of fluid into the upper duodenum and stomach but patient still able to eat/drink and has no vomiting. [id number] this likely contributed to development of severe gastric ulcer. Ultimately will need intervention on the stricture in [place]. Dr Ignacio asked if reglan/promotility agent would be helpful -- defer to GI. 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 Diagnosed in February at [facility]. Required hospitalization with ultimate placement on apixaban 5 mg p.o. twice daily. Due to significant drop in Hb, heme+ stool, etc -- eliquis STOPPED. Dr Henao from vascular surgery consulted 04/09/20 -- holding off on IVC filter at this time. 6 additional weeks of anticoagulation is needed -- will go with coumadin in the event he has recurrent bleeding. Recommend starting coumadin 5mg daily either Tuesday or Tuesday with no bridge with INR goal 2-3. Will need to be linked with a coumadin provider. Patient lives in [place] which is near [facility]. (8) Thrombosis of right iliac vein: See above (9) Ankylosis of thoracic spine: on enbrel, no issues at this time. 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 protonix 40mg BID 2. coumadin 5mg daily starting Tuesday or Tuesday with INR goal 2-3 3. will need repeat EGD with Dr Tam in 2 months 4. recommend f/u visit with Dr Ignacio within 1 week to recheck CBC, ferritin, INR, etc 5. patient should f/u with surgeon at [facility] re: duodenal stricture can d/c basal fluids and telemetry Admission and Anticipated Discharge Date Admission Date: April 07, 2020 Subjective patient feeling well. tolerating regular diet. no abd pain. scant amount of old melena in stool only. mild loose stool but improving. no nausea or emesis. denies dyspnea or dizziness. walking the hallways regularly. tele overnight wnl. Review of Systems Constitutional: no fever, no chills, no fatigue and no anorexia Respiratory: no cough and no dyspnea Cardiovascular: no chest pain and no lightheadedness Gastrointestinal: + diarrhea/loose stools; no abdominal pain, no nausea and no vomiting Neurologic: no dizziness Physical Exam Constitutional: well developed and well nourished; no acute distress and no altered mental status ENMT: external ear and nose normal, oropharynx normal Respiratory: normal respiratory effort, lungs clear to auscultation Cardiovascular: Rate/Rhythm: regular rate and regular rhythm Heart Sounds: normal S1 and normal S2; no murmur Vessels: posterior tibial pulses present and dorsalis pedis pulses present; no JVD Extremities: no edema Gastrointestinal (Abdomen): normal bowel sounds, soft, nontender, no hepatosplenomegaly Psychiatric: A+Ox3, euthymic affect Results & Data Results & Data ([facility]) Vital Signs (Past 12 Hours) Vital Signs Temp Pulse Pulse Resp BP Pulse Ox 04/11/20 15:50 37.1 C 66 16 96/61 L 100 04/11/20 11:36 36.9 C 67 18 95/60 L 100 04/11/20 07:39 36.6 C 61 18 93/55 L 100 04/11/20 07:28 58 L Laboratory Results Laboratory Results - last 24 hr 04/11/20 04/11/20 05:28 05:28 WBC 5.40 RBC 3.50 L Hgb 8.6 L Hct 28.5 L MCV 81.4 MCH 24.6 L MCHC 30.2 L RDW Std Deviation 57.4 H RDW Coeff of Jodi 19.3 H Plt Count 310 MPV 9.9 Sodium 140 Potassium 3.7 Chloride 111 H Carbon Dioxide 26 Anion Gap 3.0 BUN 9 D Creatinine 0.63 Est Cr Clr Drug Dosing 158.3 Est GFR ( Amer) 148.0 Est GFR (Non-Af Amer) 127.7 BUN/Creatinine Ratio 15.2 Glucose 82 Calcium 7.5 L Ferritin 174.1 PG Care Time/CCT Total # of Minutes Spent Total Time Spent with Patient: Total time spent is greater than 50% in coordination of care (as documented) at patient's floor/unit and/or counseling patient: Coding Level of Care Code 59904 Subseq Hosp Care Lvl 2 Diagnoses Gastric ulcer with hemorrhage K25.0 Gastric ulcer chronicity: acute Upper GI bleed K92.2 Acute blood loss anemia D62 Iron deficiency anemia D50.9 Iron deficiency anemia type: unspecified iron deficiency Crohn's disease K50.019 Gastrointestinal tract location: small intestine Digestive disease complication type: unspecified complication Duodenal stricture K31.5 Thrombosis of left renal vein I82.3 Thrombosis of right iliac vein I82.421 Ankylosis of thoracic spine M43.24 Nutcracker phenomenon of renal vein I87.1 DVT prophylaxis Z29.9 (1) Gastric ulcer with hemorrhage Gastric ulcer chronicity: acute Qualified Code(s): K25.0 - Acute gastric ulcer with hemorrhage (2) Iron deficiency anemia Iron deficiency anemia type: unspecified iron deficiency Qualified Code(s): D50.9 - Iron deficiency anemia, unspecified (3) Crohn's disease Gastrointestinal tract location: small intestine Digestive disease co mplication type: unspecified complication Qualified Code(s): K50.019 - Crohn's disease of small intestine with unspecified complications
[2020-04-12] MEDS: PANTOprazole 40 MG in DEXTROSE 5% 100 ML IV SCH ×3 (01:14→10:56)
[2020-04-12 07:11] LABS: Hematocrit (blood only) 30.2 % (42-52); Hemoglobin 8.9 g/dL (14.0-18.0); Mean Corpuscular Hemoglobin 24.3 pg (25-34); Mean Corpuscular Hgb Conc 29.5 g/dL (32-36); Mean Corpuscular Volume 82.3 fL (80-100); Mean Platelet Volume 10.6 fL (7.4-10.4); Platelet Count 352 K/uL (130-400); RDW Coefficient of Variation 19.4 % (11.5-14.5); RDW Standard Deviation 58.9 fL (36.4-46.3); Red Blood Count 3.67 M/uL (4.7-6.1)
[2020-04-12 07:36] LABS: Creatinine Clr Calc Pharmacy 160.9 ml/min; Est GFR (Non-African American) 128.5
--- NOTE | 2020-04-12 10:33 | Progress Notes ---
DATE: 04/12/2020 DIAGNOSES: 1. Gastric ulcer with hemorrhage. 2. Refractory iron deficiency anemia. 3. Acute blood loss anemia. 4. Crohn's disease. 5. Duodenal stricture. SUBJECTIVE: The patient was seen and examined at bedside. Spirits are high, wants to go home today. He is finishing his last bag of IV Protonix. The patient has maintained a stable hemoglobin overnight. He received multiple doses of IV iron while in house. He has now been placed on Coumadin and his current INR is pending. Again, he has no complaints and nursing reports no overnight difficulties. OBJECTIVE: GENERAL: A very pleasant 34-year-old gentleman, awake, alert and appropriate, in no acute distress. VITAL SIGNS: Temperature 37.1, pulse 70, respiratory rate 17, blood pressure 94/57. SKIN: Slightly pale. No rashes or lesions. HEENT: Oral mucosa without erythema or ulceration. HEART: Regular rate and rhythm. LUNGS: Clear to auscultation bilaterally. ABDOMEN: Soft, nontender, nondistended. EXTREMITIES: No clubbing, cyanosis or edema. NEUROLOGIC: Grossly intact. LABORATORY DATA: WBC count 7400, hemoglobin 8.9, platelet count 352,000. IMPRESSION: 1. Gastric ulcer with hemorrhage. 2. Refractory iron deficiency anemia. 3. Severe anemia attributable to active gastrointestinal bleeding. 4. Crohn's disease. 5. Duodenal stricture. 6. Lastly, right lower extremity deep vein thrombosis. 7. Right renal vein thrombosis. PLAN: The patient is a pleasant 34-year-old gentleman well known to [facility] with refractory iron deficiency anemia. As you recall, he was admitted with severe anemia and associated symptoms. He was transfused aggressively and received replacement iron. Gastroenterology was on consult and EGD revealed a bleeding gastric ulcer, which was cauterized. The patient has since been placed back on Coumadin. Will slowly introduce anticoagulation and monitor closely. The patient followup established with me next week and will have him check in the appropriate time. I believe he is well enough to go home. Appreciate the hospitalist's assistance in caring for this gentleman. We will officially sign off and anticipate seeing him later on this week in clinic. Examination otherwise unremarkable. [facility]
--- NOTE | 2020-04-12 21:46 | Discharge Summary ---
Date of Service April 12, 2020 Admission HPI Per Admitting Provider The patient is a 34-year-old male with a past medical history including Crohn's disease, iron deficiency anemia, duodenal stricture, asthma, incisional hernia, allergic rhinitis, anxiety, left renal vein thrombosis, right internal iliac vein thrombosis, duodenojejunostomy, cholecystectomy, sinus surgeries x5, cardiac cath in 1995, and EGD and colonoscopy at [facility] on 02/22/2020. He was most recently admitted to [facility] on 02/22/2020 due to imaging performed that morning at [facility] which showed severe luminal narrowing of the proximal jejunum distal to the duodenojejunostomy with signif icant dilatation of the stomach and remaining duodenum. CT also showed severe stenosis of the left renal vein coursing beneath the SMA suggestive of nutcracker syndrome. There are associated left perinephric varices and elongated thrombus of the left renal vein. There was also suspected right internal iliac vein thrombus. He was started on IV heparin at that time, and then was converted to Eliquis 5 mg p.o. twice daily at the time of discharge. Principal Diagnosis Gastric ulcer Discharge Exam Constitutional WD/WN, vitals as above Eyes EOM intact bilaterally; no conjunctival abnormality ENMT external ear and nose normal, oropharynx normal Neck trachea midline, no thyromegaly normal visual inspection Respiratory normal respiratory effort, lungs clear to auscultation no respiratory distress Cardiovascular RRR, no murmur, no edema Gastrointestinal (Abdomen) Inspection/Auscultation: abdomen normal to inspection; abdomen not distended Musculoskeletal no cyanosis or clubbing, extremities motor strength 5/5 Skin no rashes, warm and dry Neurologic moves all extremities and awake Psychiatric Orientation: alert, oriented to person and cooperative Discharge Data Allergies Allergy/AdvReac Type Severity Reaction Status Date / Time amoxicillin [From Augmentin] Allergy Mild Rash Verified 04/07/20 16:23 clavulanic acid AdvReac Mild Rash Verified 04/07/20 16:23 [From Augmentin] Sulfa (Sulfonamide AdvReac Mild Rash Verified 04/07/20 16:23 Antibiotics) Consultations 04/07/20 20:41 ED Decision to Admit Stat 04/07/20 22:44 Consult Case Management - Discharge Planning Routine Consult Hematology Routine 04/08/20 21:05 Consult Vascular Surgery Routine 04/09/20 08:07 Consult Gastroenterology Routine Procedures Performed Operation Date: 04/09/20 16:30 Actual Procedures p Small Bowel Enteroscopy BX/CYT - Gigi Tam MD Ordered Studies 04/07/20 14:51 CT abd pelvis oral and IV con Stat Hospital Course (1) Gastric ulcer with hemorrhage: s/p EGD 04/09/[address] Tam for severe, acute blood loss anemia with Fe deficiency. EGD revealed large, cratered gastric ulcer with visible vessel. Dr Tam intervened on ulcer with injection & clips. Esophagus and duodenum w/o source of bleeding. H/H acceptable and stable today. Repeat CBC in am. Biopsies NEGATIVE for H. pylori and NEGATIVE for cancer. Discharged on pantoprazole 40mg PO BID until time of a repeat EGD in 2 months. (2) Upper GI bleed: 2nd to gastric ulcer. see above. no evidence of ongoing, active bleeding. H/H stable since his last PRBC infusion on 04/09/20. (3) Acute blood loss anemia: 2nd to large, bleeding gastric ulcer -- see above. Hb <5 at admission. Now 8.6. CBC am for stability. EGD from [facility] 01/2020 reviewed -- esophagitis noted on that EGD but no gastric ulcer. Total of 4 units of PRBCs since admission. (4) Iron deficiency anemia: Severe. Ferritin 15 on 04/07/20. Iron deficiency is 2nd to malabsorption from duodenojejunostomy state as well as acute GI bleeding. s/p 4 doses of IV venofer 200mg each since admission (dose #4 was this am). Ferritin this am was 174. Appreciate Dr Ignacio's consultation and recommendations. OF NOTE - celiac panel was NEGATIVE. - Will follow up this week with Dr. Ignacio in the office for CBC and INR. (5) Crohn's disease: Dx about 11 years ago, however biopsies have never been fully conclusive. Biopsy from duodenum dated 01/2020 from EGD showed "chronic inflammation" of duodenum. He follows with GI at [facility] in [place]. He has had disease of the proximal small bowel only. He has had duodenojejunostomy, and has a known duodenal stricture - but is able to eat without difficulty. Severe iron deficiency - likely multifactorial. See above. (6) Duodenal stricture: Duodenal stricture exists just beyond previous surgical site of the duodenojejunostomy. This is causing a backup of fluid into the upper duodenum and stomach but patient still able to eat/drink and has no vomiting. [id number] this likely contributed to development of severe gastric ulcer. Ultimately will need intervention on the stricture in [place]. 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 Diagnosed in February at [facility] Required hospitalization with ultimate placement on apixaban 5 mg p.o. twice daily. Due to significant drop in Hb, heme+ stool, etc -- eliquis STOPPED. Dr Henao from vascular surgery consulted 04/09/20 -- holding off on IVC filter at this time. 6 additional weeks of anticoagulation is needed -- will go with coumadin in the event he has recurrent bleeding. Of note: Discussed discharge with Dr. Ignacio. Given we *are not* bridging him, Dr. Ignacio did not feel he needed to stay until INR was near 2 which is what is dictated in his note. He was ok with him starting warfarin on Tuesday, and getting close follow up to monitor INR. Recommend starting coumadin 5mg daily on Tuesday with no bridge with INR goal 2- 3. Will get next INR check with Dr. Ignacio this week. Could also consider anticoagulation clinic as well if he is willing to travel here for checks. (8) Thrombosis of right iliac vein: See above (9) Ankylosis of thoracic spine: on enbrel, no issues at this time. 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 Kennedy or someone in the Anticoagulation Clinic to help with INR checks.) Heri Ignacio V., [Physician] - (Please see Dr. Ignacio in his clinic this coming week. Please get an INR checked with your PCP early this week (Tuesday/Tuesday).) Kevon Henao MD [Physician] - (Call [phone] with any questions or concerns after discharge) Sridevi Mendoza D.O. [Primary Care Provider] - Diet: Regular Addtl Attending Provider Instructions: Mr. Whitley, You were admitted to the hospital with anemia that came from a gastric ulcer. Please take the pantoprazole 2 times per day for the next 2 months [address] you see Dr. Tam in the office and have a repeat EGD to make sure your stomach has healed well. Second, please start the warfarin on Tuesday. You should see Dr. Ignacio in the office this coming week for an INR check. Because you need to have INR levels checked, you will need to follow up with either your PCP, Dr. Ignacio, or the [facility] to follow these numbers. Finally, you should see your surgeon at [facility] regarding the stricture in the duodenum. It doesn't seem to be bothering you at this point, but it would be good to follow up to be sure nothing needs to be done. Pending Studies at Discharge: No Stand-Alone Forms: My [facility] Played, Smoking Cessation Medications and DC Order Prescriptions: New warfarin 5 mg tablet 5 mg PO DAILY Qty: 30 RF: 0 pantoprazole 40 mg tablet,delayed release (DR/EC) 40 mg PO BID Qty: 60 RF: 1 Continued Pepcid Complete 10-800-165 mg Tablet,Chewable 1 tab PO BID RF: 0 Humira Pen 40 mg/0.8 mL Pen Injector Kit 40 mg SUBCUT .[id number] RF: 0 Discontinued Eliquis 5 mg Tablet 5 mg PO BID RF: 0 Discharge Orders: Discharge Order (Routine); Ordered 04/12/20 Ordered By: Dionicio Whitley Admission Data Admit Date/Time: 04/07/20 21:54 Attending Provider: Dionicio Whitley Admit Provider: Eric Hodges Primary Care Provider: Sridevi Mendoza Other Providers: Eric Hodges ; Heri Ignacio V. ; Kevon Henao ; Gigi Tam Other Interventions: Discharge Summary Assessment (RN) Last Done: 10/17/20 14:03 Coding Level of Care Code D/C Day Management >30 mins Diagnoses Gastric ulcer with hemorrhage K25.0 Gastric ulcer chronicity: acute Upper GI bleed K92.2 Acute blood loss anemia D62 Iron deficiency anemia D50.9 Iron deficiency anemia type: unspecified iron deficiency Crohn's disease K50.019 Gastrointestinal tract location: small intestine Digestive disease complication type: unspecified complication Duodenal stricture K31.5 Thrombosis of left renal vein I82.3 Thrombosis of right iliac vein I82.421 Ankylosis of thoracic spine M43.24 Nutcracker phenomenon of renal vein I87.1 DVT prophylaxis Z29.9
== END 2020-04-12 14:31 | disposition home or self-care (01) | DRG 378 ==
LOC: ED 13:42 → 2N 21:54 → SUATTDRO 21:54 → 2N 22:13

== ENCOUNTER 2020-06-09 13:00 | Inpatient (IN) ==
[2020-06-09] MEDS ORDERED: SODIUM CHLORIDE 0.9% 1000ML 500 ML IV ONE (13:45)
--- NOTE | 2020-06-09 13:47 | Emergency Department Note ---
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 He was scheduled to get an iron infusion last Tuesday but missed it because he was been on quarantine. He said he was Covid +2 weeks ago and had very minimal symptoms with nausea vomiting diarrhea and weakness and achiness that lasted from May 22-. He been feeling fine since then until Tuesday when he felt just run down and he dizzy and he felt like his heart was racing like it does when he gets low on his iron he started having diarrhea as he does as well he said no blood or melena stool. He is on Humira for ankylosing spondylitis as well but he said no fever chills or cough or shortness of breath. He called Dr. Ignacio his health informatics instructor who referred him to the ER. Home Medications Medication Instructions Recorded Confirmed Type Humira Pen 40 mg SUBCUT .Q2W 04/07/20 06/09/20 History pantoprazole 40 mg PO BID #60 tab 04/12/20 06/09/20 Rx famotidine [Pepcid] 20 mg PO QDL 05/26/20 06/09/20 History Allergies Allergy/AdvReac Type Severity Reaction Status Date / Time amoxicillin [From Augmentin] Allergy Mild Rash Verified 06/09/20 15:48 Iodinated Contrast Media Allergy asthma Verified 06/09/20 15:48 attack clavulanic acid AdvReac Mild Rash Verified 06/09/20 15:48 [From Augmentin] Sulfa (Sulfonamide AdvReac Mild Rash Verified 06/09/20 15:49 Antibiotics) peanut oil AdvReac Diarrhea Unverified 06/09/20 15:48 HOT DOG AdvReac Vomiting Uncoded 06/09/20 15:47 Past Med/Surg History Medical History Ankylosing spondylitis Anxiety Asthma rare use of PRN inh Crohn's disease Duodenal stricture History of bleeding peptic ulcer hospitalized at [place] 03/2020 History of small bowel obstruction Incisional hernia Iron deficiency anemia following with Dr. Ignacio Non compliance w medication regimen admits to stopping coumadin 2 weeks ago. says caused GI upset & black stools. 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 Surgical History History of cardiac catheterization 15 years ago - [facility] - frequent PVCs - no stents/angioplasty History of cholecystectomy History of esophagogastroduodenoscopy (EGD) 03/2020 while hospitalized with GI bleed History of resection of small bowel History of tonsillectomy and adenoidectomy Hx of sinus surgery multiple Family History Father Diabetes Other No family history of adverse response to anesthesia Social History Smoking Status: Never smoker Second Hand Exposure: No; Hx Alcohol Use: No Hx Substance Use: No Preferred Language: Hebrew Communication Ability: Effective Ventilated Rib Fitter Required: No Beliefs That Will Affect Care: None Current Living Situation: Spouse and Family Feels Safe at Home: Yes Assistive Devices: None Review of Systems A total of 10 systems reviewed and were otherwise negative Physical Exam Vital Signs Vital Signs - 24 hr 06/09/20 13:11 06/09/20 13:34 06/09/20 13:39 Temperature 36.8 C Temperature Source Oral Pulse Rate 138 H 108 H Pulse Rate [Apical] 131 H Pulse Rate from SpO2 Sensor 108 H Pulse Rhythm Pulse Strength Respiratory Rate 18 17 20 Respiratory Effort / Characteristics Non-Labored Spontaneous Respiratory Depth Normal Respiratory Pattern Regular Blood Pressure 107/71 97/68 L Blood Pressure [Left Arm] 97/68 L Blood Pressure Mean 83 75 Blood Pressure Mean [Left Arm] 77 Blood Pressure Position Pulse Oximetry 100 100 100 Oxygen Delivery Method Room Air Room Air Sepsis Recent Fever Within 48 Hours No Sepsis New/Unexplained Change in Mental Status N/A Sepsis Action Taken by Nursing No Action Required 06/09/20 13:48 06/09/20 13:59 06/09/20 14:00 Temperature Temperature Source Pulse Rate 131 H 105 H 109 H Pulse Rate [Apical] Pulse Rate from SpO2 Sensor 106 H 107 H Pulse Rhythm Pulse Strength Respiratory Rate 20 14 16 Respiratory Effort / Characteristics Respiratory Depth Respiratory Pattern Blood Pressure 104/65 Blood Pressure [Left Arm] Blood Pressure Mean 76 Blood Pressure Mean [Left Arm] Blood Pressure Position Pulse Oximetry 100 100 100 Oxygen Delivery Method Sepsis Recent Fever Within 48 Hours Sepsis New/Unexplained Change in Mental Status Sepsis Action Taken by Nursing 06/09/20 14:01 06/09/20 14:39 06/09/20 15:00 Temperature Temperature Source Pulse Rate 120 H 113 H 108 H Pulse Rate [Apical] Pulse Rate from SpO2 Sensor 120 H 114 H 108 H Pulse Rhythm Pulse Strength Respiratory Rate 14 19 16 Respiratory Effort / Characteristics Respiratory Depth Respiratory Pattern Blood Pressure 95/53 L 104/64 Blood Pressure [Left Arm] Blood Pressure Mean 68 74 Blood Pressure Mean [Left Arm] Blood Pressure Position Pulse Oximetry 100 100 100 Oxygen Delivery Method Sepsis Recent Fever Within 48 Hours Sepsis New/Unexplained Change in Mental Status Sepsis Action Taken by Nursing 06/09/20 15:30 06/09/20 15:45 06/09/20 16:15 Temperature 37.0 C 37.0 C 37.0 C Temperature Source Oral Oral Oral Pulse Rate 100 H 102 H 101 H Pulse Rate [Apical] Pulse Rate from SpO2 Sensor Pulse Rhythm Pulse Strength Respiratory Rate 22 22 22 Respiratory Effort / Characteristics Respiratory Depth Respiratory Pattern Blood Pressure 104/66 98/55 L 109/65 Blood Pressure [Left Arm] Blood Pressure Mean 78 69 79 Blood Pressure Mean [Left Arm] Blood Pressure Position Sitting Sitting Sitting Pulse Oximetry 100 98 98 Oxygen Delivery Method Sepsis Recent Fever Within 48 Hours Sepsis New/Unexplained Change in Mental Status Sepsis Action Taken by Nursing 06/09/20 16:45 06/09/20 17:00 06/09/20 17:45 Temperature 37.1 C 37.1 C Temperature Source Oral Oral Pulse Rate 101 H 98 H 102 H Pulse Rate [Apical] Pulse Rate from SpO2 Sensor 100 H Pulse Rhythm Regular Pulse Strength Normal Respiratory Rate 20 14 22 Respiratory Effort / Characteristics Respiratory Depth Respiratory Pattern Blood Pressure 98/65 L 105/62 103/65 Blood Pressure [Left Arm] Blood Pressure Mean 76 71 77 Blood Pressure Mean [Left Arm] Blood Pressure Position Sitting Sitting Pulse Oximetry 98 100 98 Oxygen Delivery Method Sepsis Recent Fever Within 48 Hours Sepsis New/Unexplained Change in Mental Status Sepsis Action Taken by Nursing General: Well developed well nourished mildly pale but not ill-appearing young male in no acute distress, breathing comfortably on room air. Normal speech HEENT: Normal cephalic atraumatic. Pupils are equal round and reactive to light. Extraocular movements are intact. Oropharynx is pink with moist mucous membranes. No swelling of the mouth lips or tongue. Neck: Supple with a midline trachea. No meningeal signs or stiffness, no JVD or bruits. No Stridor. Chest: Clear to auscultation bilaterally. No wheezes or rhonchi. No increased work of breathing. Heart: Tachycardic but regular rate and rhythm without murmurs or gallops. Abdomen: Soft nontender, nondistended without rebound guarding or rigidity. Extremities: No cyanosis clubbing or edema. No calf tenderness or assymetry Spine/Back. Non tender to palpation. No CVA tenderness Skin: Good turgor without rashes. Neurologic exam: Cranial nerves two through 12 are intact. Motor and sensation are intact and symmetrical throughout. Course Administered Medications Discontinued Medications Sodium Chloride (Nss 1000ml) 500 mls @ 999 mls/hr IV .Q31M ONE Stop: 06/09/20 14:15 Last Infusion: 06/09/20 14:33 Dose: 0 mls/hr Documented by: [id number] Admin: 06/09/20 13:57 Dose: 999 mls/hr Documented by: [id number] Critical Care Time Critical Care Time: Yes Total Critical Care Time: 35 Due to the patient's significant anemia, tachycardia and hypotension, and need for frequent reassessment, I have personally spent greater than 35 minutes of critical care time in the direct management of this patient. This includes be dside care, interpretation of diagnostic studies, and testing, discussion with consultants, patient, and family members, and other required patient management activities. This 35 minutes is in excess of all separately billable procedures. Medical Decision Making Differential Diagnosis Anemia, iron deficiency, sepsis, Covid, electrolyte or metabolic abnormality, dehydration Medical Records Attestation: I reviewed the patient's medical records. Home Medications Current Medication List: was personally reviewed by me Laboratory Data Attestation: I reviewed the patient's lab results. Result diagrams: 06/09/20 13:30 06/09/20 13:30 Lab Results 06/09/20 06/09/20 06/09/20 Range/Units 13:25 13:30 13:30 WBC 7.26 (4.8-10.8) K/uL RBC 2.07 L (4.7-6.1) M/uL Hgb 4.8 L* (14.0-18.0) g/dL Hct 16.3 L* (42-52) % MCV 78.7 L (80-100) fL MCH 23.2 L (25-34) pg MCHC 29.4 L (32-36) g/dL RDW Std Deviation 48.3 H (36.4-46.3) fL RDW Coeff of Jodi 16.5 H (11.5-14.5) % Plt Count 593 H (130-400) K/uL MPV 9.9 (7.4-10.4) fL Immature Gran % (Auto) 0.0 % Neut % (Auto) 71.2 % Lymph % (Auto) 16.1 % Bibb % (Auto) 9.9 % Eos % (Auto) 2.5 % Baso % (Auto) 0.3 % Neut # (Auto) 5.17 (1.4-6.5) K/uL Lymph # (Auto) 1.17 L (1.2-3.4) K/uL Bibb # (Auto) 0.72 H (0.11-0.59) K/uL Eos # (Auto) 0.18 (0-0.5) K/uL Baso # (Auto) 0.02 (0-0.2) K/uL Immature Gran # (Auto) 0.00 (0.00-0.02) K/uL Polychromasia 2+ Spherocytes 1+ PT 11.2 (9.0-12.0) Seconds INR 1.1 (0.9-1.1) Sodium (136-145) mmol/L Potassium (3.5-5.1) mmol/L Chloride (98-107) mmol/L Carbon Dioxide (21-32) mmol/L Anion Gap (3-11) BUN (7-18) mg/dl Creatinine (0.6-1.4) mg/dl Est Cr Clr Drug Dosing ml/min Est GFR ( Amer) Est GFR (Non-Af Amer) BUN/Creatinine Ratio (10-20) Glucose (70-99) mg/dl Calcium (8.5-10.1) mg/dl Iron (35-175) mcg/dl TIBC (250-450) mcg/dl Ferritin (8-388) ng/ml Total Bilirubin (0.2-1) mg/dl AST (15-37) U/L ALT (12-78) U/L Alkaline Phosphatase (45-117) U/L Total Protein (6.4-8.2) gm/dl Albumin (3.4-5.0) gm/dl Globulin (2.5-4.0) gm/dl Albumin/Globulin Ratio (0.9-2) TSH (0.300-4.500) uIu/ml Urine Color Yellow Urine Appearance Clear (Clear) Urine pH 5.0 (4.5-7.5) Ur Specific Henderson 1.021 (1.000-1.030) Urine Protein Negative (Negative) Urine Glucose (UA) Negative (Negative) Urine Ketones Trace H (Negative) Urine Blood Negative (Negative) Urine Nitrite Negative (Negative) Urine Bilirubin Negative (Negative) Urine Urobilinogen Negative (Negative) Ur Leukocyte Esterase Negative (Negative) SARS-CoV-2, RNA, NAAT (NEGATIVE) SARS-CoV-2 Ag (Rapid) (Negative) Blood Type Antibody Screen Crossmatch 06/09/20 06/09/20 06/09/20 Range/Units 13:30 13:52 14:45 WBC (4.8-10.8) K/uL RBC (4.7-6.1) M/uL Hgb (14.0-18.0) g/dL Hct (42-52) % MCV (80-100) fL MCH (25-34) pg MCHC (32-36) g/dL RDW Std Deviation (36.4-46.3) fL RDW Coeff of Jodi (11.5-14.5) % Plt Count (130-400) K/uL MPV (7.4-10.4) fL Immature Gran % (Auto) % Neut % (Auto) % Lymph % (Auto) % Bibb % (Auto) % Eos % (Auto) % Baso % (Auto) % Neut # (Auto) (1.4-6.5) K/uL Lymph # (Auto) (1.2-3.4) K/uL Bibb # (Auto) (0.11-0.59) K/uL Eos # (Auto) (0-0.5) K/uL Baso # (Auto) (0-0.2) K/uL Immature Gran # (Auto) (0.00-0.02) K/uL Polychromasia Spherocytes PT (9.0-12.0) Seconds INR (0.9-1.1) Sodium 138 (136-145) mmol/L Potassium 3.3 L (3.5-5.1) mmol/L Chloride 104 (98-107) mmol/L Carbon Dioxide 27 (21-32) mmol/L Anion Gap 7.0 (3-11) BUN 21 H (7-18) mg/dl Creatinine 0.64 (0.6-1.4) mg/dl Est Cr Clr Drug Dosing 155.9 ml/min Est GFR ( Amer) 147.0 Est GFR (Non-Af Amer) 126.9 BUN/Creatinine Ratio 32.8 H (10-20) Glucose 117 H (70-99) mg/dl Calcium 7.3 L (8.5-10.1) mg/dl Iron 7 L (35-175) mcg/dl TIBC 223 L (250-450) mcg/dl Ferritin 11.1 (8-388) ng/ml Total Bilirubin 0.3 (0.2-1) mg/dl AST 28 (15-37) U/L ALT 27 (12-78) U/L Alkaline Phosphatase 47 (45-117) U/L Total Protein 4.5 L (6.4-8.2) gm/dl Albumin 1.6 L (3.4-5.0) gm/dl Globulin 2.9 (2.5-4.0) gm/dl Albumin/Globulin Ratio 0.6 L (0.9-2) TSH 3.980 (0.300-4.500) uIu/ml Urine Color Urine Appearance (Clear) Urine pH (4.5-7.5) Ur Specific Henderson (1.000-1.030) Urine Protein (Negative) Urine Glucose (UA) (Negative) Urine Ketones (Negative) Urine Blood (Negative) Urine Nitrite (Negative) Urine Bilirubin (Negative) Urine Urobilinogen (Negative) Ur Leukocyte Esterase (Negative) SARS-CoV-2, RNA, NAAT (NEGATIVE) SARS-CoV-2 Ag (Rapid) (Negative) Blood Type A Positive Antibody Screen NEGATIVE Crossmatch See Detail 06/09/20 06/09/20 Range/Units 14:45 Unknown WBC (4.8-10.8) K/uL RBC (4.7-6.1) M/uL Hgb (14.0-18.0) g/dL Hct (42-52) % MCV (80-100) fL MCH (25-34) pg MCHC (32-36) g/dL RDW Std Deviation (36.4-46.3) fL RDW Coeff of Jodi (11.5-14.5) % Plt Count (130-400) K/uL MPV (7.4-10.4) fL Immature Gran % (Auto) % Neut % (Auto) % Lymph % (Auto) % Bibb % (Auto) % Eos % (Auto) % Baso % (Auto) % Neut # (Auto) (1.4-6.5) K/uL Lymph # (Auto) (1.2-3.4) K/uL Bibb # (Auto) (0.11-0.59) K/uL Eos # (Auto) (0-0.5) K/uL Baso # (Auto) (0-0.2) K/uL Immature Gran # (Auto) (0.00-0.02) K/uL Polychromasia Spherocytes PT (9.0-12.0) Seconds INR (0.9-1.1) Sodium (136-145) mmol/L Potassium (3.5-5.1) mmol/L Chloride (98-107) mmol/L Carbon Dioxide (21-32) mmol/L Anion Gap (3-11) BUN (7-18) mg/dl Creatinine (0.6-1.4) mg/dl Est Cr Clr Drug Dosing ml/min Est GFR ( Amer) Est GFR (Non-Af Amer) BUN/Creatinine Ratio (10-20) Glucose (70-99) mg/dl Calcium (8.5-10.1) mg/dl Iron (35-175) mcg/dl TIBC (250-450) mcg/dl Ferritin (8-388) ng/ml Total Bilirubin (0.2-1) mg/dl AST (15-37) U/L ALT (12-78) U/L Alkaline Phosphatase (45-117) U/L Total Protein (6.4-8.2) gm/dl Albumin (3.4-5.0) gm/dl Globulin (2.5-4.0) gm/dl Albumin/Globulin Ratio (0.9-2) TSH (0.300-4.500) uIu/ml Urine Color Urine Appearance (Clear) Urine pH (4.5-7.5) Ur Specific Henderson (1.000-1.030) Urine Protein (Negative) Urine Glucose (UA) (Negative) Urine Ketones (Negative) Urine Blood (Negative) Urine Nitrite (Negative) Urine Bilirubin (Negative) Urine Urobilinogen (Negative) Ur Leukocyte Esterase (Negative) SARS-CoV-2, RNA, NAAT POSITIVE A* (NEGATIVE) SARS-CoV-2 Ag (Rapid) Positive A* (Negative) Blood Type Antibody Screen Crossmatch Imaging Data Attestation: I personally reviewed and interpreted this imaging study as follows: ECG Data Attestation: I personally reviewed and interpreted this ECG as follows: Indication: + weakness Rate (beats per minute): 132 Rhythm: + sinus tachycardia ECG [place]: + Normal ECG ST segments: + Normal ST segments ECG Findings: no PACs and no PVCs Comparison ECG Date: from (04/07/20) Change: no significant change MDM Narrative This patient comes in as described above. He was placed on a medical clerk in room a 12. I am concerned that he is likely anemic he denies that he has had any GI blood loss but does have anemia from absorptive issues and because a Covid situation has not received iron recently. He is mildly tachycardic on the hypotensive side although he tends to run low. IV access was established and she was typed and screened blood work was obtained he was given an IV fluid bolus and was placed on a medical clerk and further evaluated. His hemoglobin did come back low at 4.8. I did discuss the case with Dr. Ignacio and he does agree with admitting him for iron studies blood transfusion and further evaluation. I did order type and cross 4 units in order the first 1 to be transfused here. The patient did consent and its on the chart for blood transfusion I explained the risks and benefits has had blood transfusions before. I did Covid test him and it did come back positive he did have Covid a couple weeks ago. He will be admitted for further treatment and evaluation. Impression & Plan Anemia, Anemia, iron deficiency, COVID-19, Dizziness Discharge Plan Visit Data Chief Complaint: Weakness Stated Complaint: LOW IRON, REFERRED BY ED Provider: Say Hardy Discharge Problem: Anemia, Anemia, iron deficiency, COVID-19, Dizziness Patient Disposition: Admitted As Inpatient Discharge Instructions Interventions: ED Discharge Assessment Last Done: 06/09/20 17:13
[2020-06-09 14:01] LABS: Hematocrit (blood only) 16.3 % (42-52); Hemoglobin 4.8 g/dL (14.0-18.0); Mean Corpuscular Hemoglobin 23.2 pg (25-34); Mean Corpuscular Hgb Conc 29.4 g/dL (32-36); Mean Corpuscular Volume 78.7 fL (80-100); Mean Platelet Volume 9.9 fL (7.4-10.4); Platelet Count 593 K/uL (130-400); RDW Coefficient of Variation 16.5 % (11.5-14.5); RDW Standard Deviation 48.3 fL (36.4-46.3); Red Blood Count 2.07 M/uL (4.7-6.1); White Blood Count 7.26 K/uL (4.8-10.8)
[2020-06-09] MEDS ORDERED: SODIUM CHLORIDE 0.9% 250 ML IV PRN ×2 (14:05→19:00)
[2020-06-09 14:14] LABS: Appearance Urine Clear (Clear); Bilirubin Urine Negative (Negative); Blood Urine Negative (Negative); Color Urine Yellow; Glucose Urine UA Negative (Negative); Ketones Urine Trace (Negative); Leukocyte Esterase Urine Negative (Negative); Nitrite Urine Negative (Negative); Protein Urine Negative (Negative); Specific Gravity Urine 1.021 (1.000-1.030); Urobilinogen Urine Negative (Negative)
[2020-06-09 14:14] LABS: Albumin Level 1.6 gm/dl (3.4-5.0); BUN Creatinine Ratio 32.8 (10-20); Calcium 7.3 mg/dl (8.5-10.1); Creatinine Clr Calc Pharmacy 155.9 ml/min; Est GFR (Non-African American) 126.9; INR 1.1 (0.9-1.1); Potassium 3.3 mmol/L (3.5-5.1); Prothrombin Time 11.2 Seconds (9.0-12.0)
[2020-06-09 14:23] LABS: Basophils # (auto) 0.02 K/uL (0-0.2); Basophils % (auto) 0.3 %; Eosinophils # (auto) 0.18 K/uL (0-0.5); Eosinophils % (auto) 2.5 %; Lymphocytes # (auto) 1.17 K/uL (1.2-3.4); Lymphocytes % (auto) 16.1 %; Monocytes # (auto) 0.72 K/uL (0.11-0.59); Monocytes % (auto) 9.9 %; Neutrophils # (auto) 5.17 K/uL (1.4-6.5); Neutrophils % (auto) 71.2 %; Polychromasia 2+; Spherocytes 1+
[2020-06-09 14:35] LABS: Albumin Globulin Ratio 0.6 (0.9-2); Bilirubin,Total 0.3 mg/dl (0.2-1); Globulin 2.9 gm/dl (2.5-4.0); Thyroid Stimulating Hormone 3.98 uIu/ml (0.300-4.500); Total Protein 4.5 gm/dl (6.4-8.2)
--- NOTE | 2020-06-09 14:35 | XRay Report ---
XR chest 1V portable CLINICAL HISTORY: weakness COMPARISON STUDY: Chest radiograph April 07, 2020. FINDINGS: Lung volumes are normal. Lungs are clear. There is no pneumothorax or pleural effusion. Car diac size is normal. Mediastinal contours are normal. There is no evidence for pulmonary edema. Patie nt is rotated. IMPRESSION: No acute cardiopulmonary findings. Rotated study. ACT 112: Negative or not required by law. Electronically signed by: Martin Beth M.D. 06/09/2020 2:34 PM
--- NOTE | 2020-06-09 14:38 | History & Physical Report ---
Date of Service June 09, 2020 Assessment & Plan (1) Iron deficiency anemia: Iron deficiency anemia/malabsorption secondary to duodenojejunostomy vs GI Bled loss Patient though denies any change in bowel moveemnts. Receiving regular IV iron from Dr. Ignacio, however due to recent COVID diagnosis, this was missed. Obtained consent for PRBC, will prepare 4 and and teansfuse 2 PRBC anf recheck hemoglobin. will consult Dr. Ignacio and GI for possible EGD. place on Fluids, NPO and PPI drip. (2) Crohn's disease: He was admitted at [facility] this year, associated with SBO/Crohn's. He has a duodenal stricture exist just beyond previous surgery site of the duodenojejunostomy. This is causing a backup of fluid into the upper duodenum and stomach, creating a gastric outlet obstruction. The patient reports that the surgeon is waiting to see if Dr. Ignacio is able to fix his hematologic status first (3) Thrombosis of right iliac vein: as noted below. 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 However, reviewing notes for [facility] clinic, patient may require prphylatic dose of lovenox. will hold off medicine due to low hemoglobin. (5) COVID-19: Patient was positive on week of and symptomaytic on Black Tuesday. He has bee been symptomatic since Cyber Tuesday. It has been over 2 weeks since he was symptomatic. Will place in negative pressure room for now. However, if needed, he would be a candidate to be move in a regular pressure room as per CDC guidelines. History of Present Illness Chief Complaint: fatigue Primary Care Provider: Sridevi Mendoza The patient is a 34-year-old male with a past medical history including Crohn's disease, iron deficiency anemia, duodenal stricture, asthma, incisional hernia, allergic rhinitis, anxiety, left renal vein thrombosis, right internal iliac vein thrombosis, duodenojejunostomy, cholecystectomy, sinus surgeries x5, cardiac cath in 1995, and EGD and colonoscopy at [facility] on 02/22/2020 and EGD here on 04/09/[address] Cole. He presents with a 1 day history of feeling fatigued. He was seen by hematology today and had a hemoglobin of 4, which prompted him to come into the hospital. He reports he had just had a recent bout of COVID-19. He reports his had COVID 19 and he became symptomatic on Black Tuesday. His only symptoms however were vomiting and diarrhea as well as a headache. This though has subsided for days. and he reports recently he was back to his usual state of health. He was surprised at how her felt yesterday as all of a sudden he had low energy, felt fatigued and had a headache. He reports that due to COVID-19 he had to miss iron transfusion for about a week. Allergies Allergy/AdvReac Type Severity Reaction Status Date / Time amoxicillin [From Augmentin] Allergy Mild Rash Verified 06/09/20 15:48 Iodinated Contrast Media Allergy asthma Verified 06/09/20 15:48 attack clavulanic acid AdvReac Mild Rash Verified 06/09/20 15:48 [From Augmentin] Sulfa (Sulfonamide AdvReac Mild Rash Verified 06/09/20 15:49 Antibiotics) peanut oil AdvReac Diarrhea Unverified 06/09/20 15:48 HOT DOG AdvReac Vomiting Uncoded 06/09/20 15:47 Home Medications Medication Instructions Recorded Confirmed Type Humira Pen 40 mg SUBCUT .Q2W 04/07/20 06/09/20 History pantoprazole 40 mg PO BID #60 tab 04/12/20 06/09/20 Rx famotidine [Pepcid] 20 mg PO QDL 05/26/20 06/09/20 History Past Med/Surg History Medical History Ankylosing spondylitis Anxiety Asthma rare use of PRN inh Crohn's disease Duodenal stricture History of bleeding peptic ulcer hospitalized at [facility] 03/2020 History of small bowel obstruction Incisional hernia Iron deficiency anemia following with Dr. Ignacio Non compliance w medication regimen admits to stopping coumadin 2 weeks ago. says caused GI upset & black stools. 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 Surgical History History of cardiac catheterization 15 years ago - [facility], [place], operated by [facility] - frequent PVCs - no stents/angioplasty History of cholecystectomy History of esophagogastroduodenoscopy (EGD) 03/2020 while hospitalized with GI bleed History of resection of small bowel History of tonsillectomy and adenoidectomy Hx of sinus surgery multiple Family History Father Diabetes Other No family history of adverse response to anesthesia Social History Smoking Status: Never smoker Second Hand Exposure: No; Do You Dip or Chew Tobacco: No; Hx Alcohol Use: No Hx Substance Use: No Preferred Language: Kinyarwanda Communication Ability: Effective Paver Required: No Beliefs That Will Affect Care: None Current Living Situation: Family Other Information That Helps Us Care for You: No Feels Safe at Home: Yes Safety Concerns: Feels Safe At This Time Assistive Devices: None Review of Systems Review of Systems: The patient denies chest pain, palpitations, shortness of breath, dyspnea on exertion, cough, lower extremity swelling, sore throat, fevers, chills, sweats, vomiting, blood in urine or stool, dysuria, urinary frequency or urgency, lightheadedness, dizziness, memory loss, loss of consciousness, rash, abnormal bruising or bleeding, imbalance, focal weakness, numbness or tingling in arms or legs, generalized arthralgias or myalgias, back or neck pain, or night sweats. The review of systems is otherwise negative other than for that already noted above, and at least 10 systems have been reviewed. Physical Exam Physical Exam: The patient is awake, alert and oriented 3, normocephalic and atraumatic, lying in bed and in no acute distress. HEENT--PERRL, EOMI, mucous membranes and oropharynx normal. Neck--supple. No JVD. No bruits. Thyroid normal, trachea midline, no adenopathy. Heart--normal S1 and S2. No murmurs, rubs or gallops. Lungs--clear bilaterally, no respiratory distress, no accessory muscle use. Abdomen--normal bowel sounds and soft. Nontender. Nondistended. Mildly tympanitic Extremities--no cyanosis or clubbing. No edema. Dermatologic--normal skin turgor, normal color, no abnormal lymph nodes, no rash. Neurologic--cranial nerves II through XII grossly intact. Rheumatologic--normal range of motion. Psychiatric--normal affect. Results & Data Results & Data ([facility]) Vital Signs (Past 12 Hours) Vital Signs Temp Pulse Pulse Resp BP BP Pulse Ox 06/09/20 14:01 120 H 14 100 06/09/20 14:00 109 H 16 104/65 100 06/09/20 13:59 105 H 14 100 06/09/20 13:48 131 H 20 100 06/09/20 13:39 131 H 20 97/68 L 100 06/09/20 13:34 108 H 17 97/68 L 100 06/09/20 13:11 36.8 C 138 H 18 107/71 100 PG Care Time/CCT Total # of Minutes Spent Total Time Spent with Patient: Total time spent is greater than 50% in coordination of care (as documented) at patient's floor/unit and/or counseling patient: Coding Level of Care Code 61809 Initial Inpt Care Lvl 3 Diagnoses Iron deficiency anemia D50.9 Iron deficiency anemia type: unspecified iron deficiency Crohn's disease K50.019 Gastrointestinal tract location: small intestine Digestive disease complication type: unspecified complication Thrombosis of right iliac vein I82.421 Thrombosis of left renal vein I82.3 COVID-19 U07.1 (1) Iron deficiency anemia Iron deficiency anemia type: unspecified iron deficiency Qualified Code(s): D50.9 - Iron deficiency anemia, unspecified (2) Crohn's disease Gastrointestinal tract location: small intestine Digestive disease complication type: unspecified complication Qualified Code(s): K50.019 - Crohn's disease of small intestine with unspecified complications
[2020-06-09] MEDS ORDERED: ONDANSETRON INJ 2 MG/ML 2 ML VIAL IV PRN (14:50)
[2020-06-09] MEDS ORDERED: PANTOPRAZOLE BOLUS/DRIP 1 EA IV STA (14:52)
[2020-06-09] MEDS ORDERED: PANTOprazole 80 MG in DEXTROSE 5% 100 ML IV ONE (14:56)
[2020-06-09 15:30] LABS: Ferritin 11.1 ng/ml (8-388)
[2020-06-09] MEDS ORDERED: SODIUM CHLORIDE 0.9% 1000ML 1,000 ML IV SCH (17:00)
[2020-06-09] MEDS ORDERED: PANTOprazole 80 MG in DEXTROSE 5% 100 ML IV STA (22:13)
[2020-06-09] MEDS: PANTOprazole 40 MG in DEXTROSE 5% 100 ML IV SCH (22:42)
[2020-06-10 02:07] LABS: Hematocrit (blood only) 19.8 % (42-52); Hemoglobin 6.3 g/dL (14.0-18.0)
[2020-06-10] MEDS ORDERED: SODIUM CHLORIDE 0.9% 250 ML IV PRN (02:23)
[2020-06-10] MEDS: PANTOprazole 40 MG in DEXTROSE 5% 100 ML IV SCH ×5 (04:15→23:49)
--- NOTE | 2020-06-10 05:33 | Electrocardiogram Report ---
Test Reason : Blood Pressure : / mmHG Vent. Rate : 132 BPM Atrial Rate : 132 BPM P-R Int : 134 ms QRS Dur : 076 ms QT Int : 316 ms P-R-T Axes : 073 056 032 degrees QTc Int : 468 ms Sinus tachycardia Cannot rule out Anterior infarct , age undetermined Abnormal ECG When compared with ECG of 07-APR-2020 14:53, No significant change was found Confirmed by Kirit Houston ([id number]) on 06/10/2020 5:32:49 AM Referred By: REFERRED SELF Confirmed By:Kirit Houston
--- NOTE | 2020-06-10 10:59 | Gastrointestinal Consultation ---
Date of Consultation June 10, 2020 Assessment & Plan (1) Anemia: H/H lower than baseline. Concern for rebleed of large gastric ulcer with visible vessel found in March 2020. -Keep NPO for EGD in OR today -IV Protonix gtt -Continue to monitor H/H -Appreciate hematology consult -Further recommendations pending results of testing. (2) COVID-19: Last symptoms on 05/24. Technically meets criteria to end isolation. (3) Crohn's disease: -Resume care with [facility] upon discharge Supervising Physician Co-Signing Physician Notes Agree with QING Vo Abd: Soft, NT, ND Continue current therapy Proceed with EGD now History of Present Illness Reason for Consultation: Anemia Attending Physician: Dionicio Whitley MD History of Present Illness Patient is a 34 yo male who presents to [facility] due to profound anemia. He has a history of severe iron deficiency anemia felt to be related to ongoing issues with his Crohn's Disease. He follows with Dr. Ignacio of hematology for recurrent transfusions. In March 2020, he was noted to be more anemic than his baseline (4.8 hgb) and underwent an EGD by Dr. Tam. This indicated a large cratered gastric ulcer with a visible vessel. He has a history of anticoagulation for a left renal vein thrombosis, but reports he hasn't taken his Coumadin in 3 weeks. He had another lab draw through Dr. Ignacio's office that indicated worsening anemia. His hemoglobin was noted to be 4.7. Unfortunately, he is recovering from a recent diagnosis of COVID19. Date of last symptoms was 05/24/2020. He has quarantined for 28 days total since the time his was first diagnosed. He denies any respiratory symptoms. He denies rectal bleeding, melena, or epigastric pain. He denies melena, heartburn, or reflux. He has been taking a PPI at home. He denies further complaints. He has been tranfused 2 units PRBCs thus far and his H/H is now 6.3/19.8. He has 2 more units to be administered. As for his Crohn's care, he receives this at [facility] due to the complexity of his disease. Apparently he has been advised to have another resection, though I do not have all of his outpatient notes available. Allergies Allergy/AdvReac Type Severity Reaction Status Date / Time amoxicillin [From Augmentin] Allergy Mild Rash Verified 06/09/20 15:48 Iodinated Contrast Media Allergy asthma Verified 06/09/20 15:48 attack clavulanic acid AdvReac Mild Rash Verified 06/09/20 15:48 [From Augmentin] Sulfa (Sulfonamide AdvReac Mild Rash Verified 06/09/20 15:49 Antibiotics) peanut oil AdvReac Diarrhea Unverified 06/09/20 15:48 HOT DOG AdvReac Vomiting Uncoded 06/09/20 15:47 Home Medications Medication Instructions Recorded Confirmed Type Humira Pen 40 mg SUBCUT .Q2W 04/07/20 06/09/20 History pantoprazole 40 mg PO BID #60 tab 04/12/20 06/09/20 Rx famotidine [Pepcid] 20 mg PO QDL 05/26/20 06/09/20 History Patient History Medical History Ankylosing spondylitis Anxiety Asthma rare use of PRN inh Crohn's disease Duodenal stricture History of bleeding peptic ulcer hospitalized at [facility] 03/2020 History of small bowel obstruction Incisional hernia Iron deficiency anemia following with Dr. Ignacio Non compliance w medication regimen admits to stopping coumadin 2 weeks ago. says caused GI upset & black stools. 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 Surgical History History of cardiac catheterization 15 years ago - [facility] - frequent PVCs - no stents/angioplasty History of cholecystectomy History of esophagogastroduodenoscopy (EGD) 03/2020 while hospitalized with GI bleed History of resection of small bowel History of tonsillectomy and adenoidectomy Hx of sinus surgery multiple Family History Father Diabetes Other No family history of adverse response to anesthesia Social History Smoking Status: Never smoker Second Hand Exposure: No; Do You Dip or Chew Tobacco: No; Hx Alcohol Use: No Hx Substance Use: No Preferred Language: Luxembourger Communication Ability: Effective Business Associate Required: No Beliefs That Will Affect Care: None Current Living Situation: Family Other Information That Helps Us Care for You: No Feels Safe at Home: Yes Safety Concerns: Feels Safe At This Time Assistive Devices: None Review of Systems Constitutional: no fever and no chills Eyes: no problem reported Ear, Nose, Mouth, Throat: no problem reported Respiratory: no cough and no dyspnea Cardiovascular: no chest pain Gastrointestinal: no abdominal pain, no constipation, no diarrhea/loose stools, no blood in stools and no melena Musculoskeletal: no body aches Integumentary: no rash Psychiatric: no problem reported Endocrine: + fatigue Physical Exam Constitutional: + ill appearing Neck: normal visual inspection Respiratory: normal respiratory effort Cardiovascular: Extremities: no edema Gastrointestinal (Abdomen): Inspection/Auscultation: abdomen normal to inspection Percussion/Palpation: abdomen soft; abdomen nontender Musculoskeletal: Head/Neck/Chest: normocephalic Skin: no rashes, warm and dry + pallor Psychiatric: A+Ox3, euthymic affect Results & Data ([facility]) Vital Signs (Past 12 Hours) Vital Signs Temp Pulse Pulse Resp BP BP Pulse Ox 06/10/20 08:26 36.4 C L 80 105/87 06/10/20 08:24 36.6 C 82 18 110/69 06/10/20 08:11 36.8 C 80 18 111/80 06/10/20 07:53 36.5 C 76 18 100/62 06/10/20 07:37 68 06/10/20 06:42 36.5 C 78 15 97/60 L 100 06/10/20 05:45 36.6 C 70 15 100/61 99 06/10/20 05:15 36.6 C 82 15 99/62 L 100 06/10/20 05:00 36.6 C 72 16 95/61 L 100 06/10/20 04:39 36.6 C 77 16 99/63 L 100 06/10/20 03:34 80 06/10/20 00:22 36.6 C 80 15 106/63 99 06/09/20 23:55 36.6 C 72 16 95/61 L 100 PG Care Time/CCT Total # of Minutes Spent Total Time Spent with Patient: Total time spent is greater than 50% in coordination of care (as documented) at patient's floor/unit and/or counseling patient: Coding Level of Care Code 18252 Inpt Consult Level 4 Diagnoses Anemia D50.0 Anemia type: iron deficiency Iron deficiency anemia type: chronic blood loss COVID-19 U07.1 Crohn's disease K50.019 Digestive disease complication type: unspecified complication Gastrointestinal tract location: small intestine (1) Anemia Anemia type: iron deficiency Iron deficiency anemia type: chronic blood loss Qualified Code(s): D50.0 - Iron deficiency anemia secondary to blood loss (chronic) (2) Crohn's disease Digestive disease complication type: unspecified complication Gastrointestinal tract location: small intestine Qualified Code(s): K50.019 - Crohn's disease of small intestine with unspecified complications
[2020-06-10] MEDS ORDERED: fentaNYL citrate 100 MCG/2 ML VIAL ONE (11:06)
[2020-06-10] MEDS ORDERED: MIDAZOLAM HCL 1 MG/ML 2ML VIAL ONE (11:06)
[2020-06-10] MEDS ORDERED: LIDOCAINE HCL 2% 2 ML VIAL/AMP(20MG/ML) INFIL ONE (11:06)
[2020-06-10] MEDS ORDERED: PROPOFOL IV EMULSION 10 MG/ML 20 ML VIAL IV ONE (11:06)
--- NOTE | 2020-06-10 11:51 | Consultation Report ---
DATE OF CONSULTATION: 06/10/2020 HEMATOLOGY CONSULTATION REASON FOR CONSULTATION: Severe anemia in a 34-year-old gentleman with history of bleeding gastric ulcer. HISTORY OF PRESENT ILLNESS: Andrea Whitley is a very pleasant 34-year-old gentleman well known to my service with multiple medical problems too numerous for his young age, admitted to [facility] with severe anemia on 06/09/2020. Andrea apparently over the past weekend really began to feel profoundly fatigued. Apparently, he recently had a bout of COVID-19 and became symptomatic on Tuesday. Most of his symptoms with COVID were GI as well including diarrhea, headache, nausea and vomiting, but overall since his admission to [facility] a couple of months back when he was diagnosed with an actively bleeding gastric ulcer necessitating cautery, he was effectively transfused and provided intravenous iron successfully. Post-hospitalization in March, was feeling quite well up until this past weekend. His appetite has been robust. This gentleman also unfortunately suffers from a right internal iliac vein thrombosis and had been on oral anticoagulation. He is followed through Dr. Radha Kennedy at anticoagulation clinic. Nonetheless, he presented with hemoglobin in the 4 gram per deciliter range. He was advised admission to hospital and ask the Emergency Room doctor to check his iron studies as well. At bedside, Andrea feels reasonably well, much better than when he came in the door. He is actively receiving transfused packed RBCs. PAST MEDICAL HISTORY: Significant for duodenal stricture, history of bleeding peptic ulcer, small-bowel obstruction, incisional hernia, iron-deficiency anemia, left renal vein thrombosis, right iliac vein thrombosis, ankylosing spondylitis, anxiety, asthma and Crohn disease. PAST SURGICAL HISTORY: Includes cardiac catheterization 15 years prior, history of cholecystectomy, EGD during 03/2020 hospitalization, resection of small bowel, tonsillectomy, adenoidectomy and history of sinus surgery. CURRENT MEDICATIONS: Include Pepcid 20 mg p.o. qd, Protonix 40 mg p.o. b.i.d., Humira pen 40 mg subQ q.2 weeks. ALLERGIES: HOT DOG, PEANUT OIL, SULFA, CLAVULANIC ACID FROM AUGMENTIN AND IV CONTRAST. SOCIAL HISTORY: The patient is and resides with his . Employed as a heavy equipment retailer. He is a nonsmoker, nondrinker, non-illicit drug user. REVIEW OF SYSTEMS: CONSTITUTIONAL: As per HPI, most notably for fatigue and decreased exercise tolerance. Negative for fevers, chills or sweats. He reports a vigorous appetite. SKIN: No rashes or lesions. No history of dermatoses. HEENT: Negative for headaches, lightheadedness or dizziness. No dysphagia or sore throat. LYMPHATICS: No history of lymphoproliferative disease. CARDIAC: No history of coronary artery disease. No current angina or palpitations. PULMONARY: He does have a history of asthma. He is not acutely short of breath, dyspneic or orthopneic. No cough or hemoptysis. GASTROINTESTINAL: Had some preceding nausea upon the COVID infection. He reports no diarrhea or constipation. No hematochezia or melena stools. GENITOURINARY: No hematuria, dysuria, or urinary incontinence. PSYCHIATRIC: Positive for anxiety. ENDOCRINE: Negative for diabetes or thyroid disease. NEUROLOGIC: Negative for seizure, stroke, or migraine headache. HEMATOLOGIC: Positive for profound microcytic anemia. PHYSICAL EXAMINATION: GENERAL: Very pleasant 34-year-old gentleman, awake, alert and appropriate, in no acute distress. VITAL SIGNS: Temperature 36.5, pulse 76, respiratory rate 18, blood pressure 100/62. SKIN: Pale, warm, dry, noncyanotic without petechia, rash or ecchymosis. HEENT: Atraumatic, normocephalic. Eyes: PERRLA, EOMI. Sclerae nonicteric. No conjunctival injection. Nares are patent without rhinorrhea or discharge. Throat is clear. Tongue is midline. Mucous membranes are moist. NECK: Supple without JVD or thyromegaly. LYMPHATICS: No cervical, supraclavicular, axillary or inguinal palpable nodes. HEART: Regular rate and rhythm. No clicks, rubs, murmurs or gallops. LUNGS: Clear to auscultation bilaterally. ABDOMEN: Soft, nontender, nondistended, without palpable hepatosplenomegaly. EXTREMITIES: No calf tenderness or swelling. No clubbing, cyanosis or edema. NEUROLOGIC: He is awake, alert and oriented x3. Cranial nerves grossly intact. LABORATORY DATA: WBC count 7260, hemoglobin 6.3, platelet count 593,000. Sodium 138, potassium 3.3, chloride 104, carbon dioxide 27, BUN 21, creatinine 0.64. Iron 7, TIBC 223, ferritin 11.1. He is positive for COVID-19 as well. IMPRESSION: 1. Acute gastrointestinal bleeding. 2. Microcytic anemia consistent with iron deficiency. 3. Hypokalemia. 4. Iron deficiency. 5. Hypoalbuminemia. PLAN: In summary, Andrea is a very pleasant 34-year-old gentleman well known to [facility], currently under my care with refractory iron-deficiency anemia. As you recall, this gentleman was admitted to our facility back in mid March with the same precipitous drop in hemoglobin. GI performed EGD and found an actively bleeding gastric ulcer requiring cautery. I suspect that ulcer is now rebleeding. Strongly encourage GI to get on board, perhaps rescope once his COVID status improves. For now, would simply provide copious amounts of IV iron 400 mg of iron sucrose, dose him today and maybe every other day x3 in total. Continue transfusional support as necessary to maintain hemoglobin above 7 grams per deciliter. As for his anticoagulation, obviously in the midst of bleeding, the safest approach may be unfractionated heparin at low dose while providing some prophylactic affect, but obviously monitoring his H and H's very closely during the process. Discussed this directly with Dr. Dionicio Whitley. I will continue to follow Andrea on a daily basis throughout his hospitalization. Thank you very much for allowing me to participate in his care. MARITZA
[2020-06-10] MEDS ORDERED: fentaNYL citrate 100 MCG/2 ML VIAL IV PRN (12:41)
[2020-06-10] MEDS ORDERED: ATROPINE SULFATE 0.1 MG/ML 10ML SYR IV PRN (12:41)
[2020-06-10] MEDS ORDERED: ePHEDrine sulfate 50 MG/ML AMP IV PRN (12:41)
[2020-06-10] MEDS ORDERED: ONDANSETRON INJ 2 MG/ML 2 ML VIAL IV PRN (12:41)
--- NOTE | 2020-06-10 12:44 | GI REPORT ---
Patient Name: Andrea Whitley Procedure Date: 06/10/2020 11:48 AM Date of : 1985 Admit Type: Inpatient Age: 34 Gender: Male Attending MD: Sathya Carreon DO Procedure: Upper GI endoscopy Providers: Sathya Carreon DO Referring MD: Referred Self Indications: Iron deficiency anemia secondary to chronic blood loss Medicines: General Anesthesia Complications: No immediate complications. Estimated Blood Loss: Estimated blood loss: none. Procedure: Pre-Anesthesia Assessment: - Prior to the procedure, a History and Physical was performed, and patient medications and allergies were reviewed. The patient's tolerance of previous anesthesia was also reviewed. The risks and benefits of the procedure and the sedation options and risks were discussed with the patient. All questions were answered, and informed consent was obtained. Prior Anticoagulants: The patient has taken no previous anticoagulant or antiplatelet agents. ASA Grade Assessment: III - A patient with severe systemic disease. After reviewing the risks and benefits, the patient was deemed in satisfactory condition to undergo the procedure. After obtaining informed consent, the endoscope was passed under direct vision. Throughout the procedure, the patient's blood pressure, pulse, and oxygen saturations were monitored continuously. The Endoscope was introduced through the mouth, and advanced to the second part of duodenum. The upper GI endoscopy was accomplished without difficulty. The patient tolerated the procedure well. Findings: The esophagus was normal. Excessive fluid was found in the entire examined stomach. One non-bleeding cratered gastric ulcer with no stigmata of bleeding was found at the pylorus. The lesion was 10 mm in largest dimension. There was evidence of a patent previous surgical anastomosis in the first portion of the duodenum. This was characterized by ulceration. Impression: - Normal esophagus. - Excessive gastric fluid. - Non-bleeding gastric ulcer with no stigmata of bleeding. - Patent previous surgical anastomosis, characterized by ulceration was found in the duodenum. - No specimens collected. Recommendation: - [facility] patient to [facility]. - Advance diet as tolerated. - Continue present medications. Sathya Carreon DO 06/10/2020 12:43:57 PM This report has been signed electronically. Note Initiated On: 06/10/2020 11:48 AM Number of Addenda: 0 I attest to the content of the Intraoperative Record and orders documented therein, exceptions below {[id number]}
--- NOTE | 2020-06-10 12:46 | Anesthesiology Consultation ---
Date of Service June 10, 2020 Assessment & Plan (1) Encounter for pre-operative examination: Chart Review Chart Review: Acceptable Risk for Surgery and Patient NOT seen in Pre Admission Testing Consults Requested none ASA ASA3 Proposed Anesthesia Anesthesia Type: MAC Risk / Benefits Reviewed With: PT / POA / Parent / Guardian, Accepts Plan and In formed Consent Obtained History Surgery Operation Date: 06/10/20 13:00 Proposed Procedures p Esophagogastroduodenoscopy Dr Carreon - Sathya Haro Case, DO Height/Weight Height: 5 ft 8 in Weight: 69.4 kg Allergies Allergy/AdvReac Type Severity Reaction Status Date / Time amoxicillin [From Augmentin] Allergy Mild Rash Verified 06/09/20 15:48 Iodinated Contrast Media Allergy asthma Verified 06/09/20 15:48 attack clavulanic acid AdvReac Mild Rash Verified 06/09/20 15:48 [From Augmentin] Sulfa (Sulfonamide AdvReac Mild Rash Verified 06/09/20 15:49 Antibiotics) peanut oil AdvReac Diarrhea Unverified 06/09/20 15:48 HOT DOG AdvReac Vomiting Uncoded 06/09/20 15:47 Medications Home Medications Medication Instructions Recorded Confirmed Last Taken Humira Pen 40 mg SUBCUT .Q2W 04/07/20 06/09/20 05/26/20 pantoprazole 40 mg PO BID #60 tab 04/12/20 06/09/20 Unknown famotidine [Pepcid] 20 mg PO QDL 05/26/20 06/09/20 Unknown Active Medications Generic Name Dose Route Start Last Admin Trade Name Freq PRN Reason Stop Dose Admin Pantoprazole Sodium 40 mg/ 100 mls @ 20 mls/hr 06/09/20 15:15 06/10/20 08:23 Dextrose IV 07/09/20 15:14 8 mg/hr Q5H RAFAEL 20 mls/hr Administration 8 MG/HR NPO Date Last Intake of Fluids: 06/08/20 Time Last Intake of Fluids: 18:30 Date Last Intake of Solids: 06/08/20 Time Last Intake of Solids: 18:30 Past Medical History Medical History Ankylosing spondylitis Anxiety Asthma rare use of PRN inh Crohn's disease Duodenal stricture History of bleeding peptic ulcer hospitalized at [facility] 03/2020 History of small bowel obstruction Incisional hernia Iron deficiency anemia following with Dr. Ignacio Non compliance w medication regimen admits to stopping coumadin 2 weeks ago. says caused GI upset & black stools. 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 Exercise / Class Metabolic Activity II 4-5 Yardwork/Stairs/Walk up hill Past Family History Family History Father Diabetes Other No family history of adverse response to anesthesia Past Surgical History Surgical History History of cardiac catheterization 15 years ago - [facility] - frequent PVCs - no stents/angioplasty History of cholecystectomy History of esophagogastroduodenoscopy (EGD) 03/2020 while hospitalized with GI bleed History of resection of small bowel History of tonsillectomy and adenoidectomy Hx of sinus surgery multiple Past Anesthesia History No Hx of Anesthesia Complications and No Family Hx of Anesthesia Complications History of PONV No Hx of PONV and No Hx of Motion Sickness Social History Smoking Status: Never smoker Do You Dip or Chew Tobacco: No Hx Alcohol Use: No Hx Substance Use: No substance use type: does not use Physical Exam Vital Signs Last Vital Signs Temp 36.4 C L 06/10/20 08:26 Pulse 80 06/10/20 08:26 Resp 18 06/10/20 08:24 BP 105/87 06/10/20 08:26 Pulse Ox 100 06/10/20 06:42 ENMT Mouth: no dentition abnormality Thyromental Distance: > or= 3.5 Finger Breadths Mallampati Class: II Neck normal visual inspection Respiratory normal respiratory effort Auscultation: lungs clear to auscultation bilaterally Cardiovascular Rate/Rhythm: regular rate and regular rhythm Psychiatric Orientation: alert Testing Laboratory Results 06/10/20 01:40 06/09/20 13:30 PT 11.2 Seconds (9.0-12.0) 06/09/20 13:30 INR 1.1 (0.9-1.1) 06/09/20 13:30 Urine Color Yellow 06/09/20 13:25 Urine Appearance Clear (Clear) 06/09/20 13:25 Urine pH 5.0 (4.5-7.5) 06/09/20 13:25 Ur Specific [place] 1.021 (1.000-1.030) 06/09/20 13:25 Urine Protein Negative (Negative) 06/09/20 13:25 Urine Glucose (UA) Negative (Negative) 06/09/20 13:25 Urine Ketones Trace (Negative) H 06/09/20 13:25 Urine Nitrite Negative (Negative) 06/09/20 13:25 Ur Leukocyte Esterase Negative (Negative) 06/09/20 13:25 Blood Type A Positive 06/09/20 13:52 Antibody Screen NEGATIVE 06/09/20 13:52
--- NOTE | 2020-06-10 13:31 | Anesthesiology Progress Note ---
Date of Service June 10, 2020 Anesthesia Post Procedure Vital Signs Vital Signs: Temp Pulse Pulse Pulse Resp BP BP 06/10/20 13:20 86 16 06/10/20 13:10 97.7 F 91 H 17 06/10/20 08:26 97.5 F L 80 105/87 06/10/20 08:24 97.9 F 82 18 110/69 06/10/20 08:11 98.2 F 80 18 111/80 06/10/20 07:53 97.7 F 76 18 100/62 06/10/20 07:37 68 06/10/20 06:42 97.7 F 78 15 97/60 L 06/10/20 05:45 97.9 F 70 15 100/61 06/10/20 05:15 97.9 F 82 15 99/62 L 06/10/20 05:00 97.9 F 72 16 95/61 L 06/10/20 04:39 97.9 F 77 16 99/63 L 06/10/20 03:34 80 06/10/20 00:22 97.9 F 80 15 06/09/20 23:55 97.9 F 72 16 95/61 L 06/09/20 22:14 98.2 F 80 16 104/80 06/09/20 21:15 98.1 F 90 15 104/68 06/09/20 20:45 98.2 F 107 H 15 113/69 06/09/20 20:30 98.4 F 100 H 18 107/68 06/09/20 20:16 98.2 F 99 H 18 92/61 L 06/09/20 18:32 89 06/09/20 18:01 98.2 F 103 H 16 106/67 06/09/20 17:45 98.8 F 102 H 22 103/65 06/09/20 17:00 98 H 14 105/62 06/09/20 16:45 98.8 F 101 H 20 98/65 L 06/09/20 16:15 98.6 F 101 H 22 109/65 06/09/20 15:45 98.6 F 102 H 22 98/55 L 06/09/20 15:30 98.6 F 100 H 22 104/66 06/09/20 15:00 108 H 16 104/64 06/09/20 14:39 113 H 19 95/53 L 06/09/20 14:01 120 H 14 06/09/20 14:00 109 H 16 104/65 06/09/20 13:59 105 H 14 06/09/20 13:48 131 H 20 06/09/20 13:39 131 H 20 97/68 L 06/09/20 13:34 108 H 17 97/68 L BP Pulse Ox 06/10/20 13:20 108/58 L 98 06/10/20 13:10 101/59 L 98 06/10/20 08:26 06/10/20 08:24 06/10/20 08:11 06/10/20 07:53 06/10/20 07:37 06/10/20 06:42 100 06/10/20 05:45 99 06/10/20 05:15 100 06/10/20 05:00 100 06/10/20 04:39 100 06/10/20 03:34 06/10/20 00:22 106/63 99 06/09/20 23:55 100 06/09/20 22:14 100 06/09/20 21:15 100 06/09/20 20:45 100 06/09/20 20:30 100 06/09/20 20:16 100 06/09/20 18:32 06/09/20 18:01 100 06/09/20 17:45 98 06/09/20 17:00 100 06/09/20 16:45 98 06/09/20 16:15 98 06/09/20 15:45 98 06/09/20 15:30 100 06/09/20 15:00 100 06/09/20 14:39 100 06/09/20 14:01 100 06/09/20 14:00 100 06/09/20 13:59 100 06/09/20 13:48 100 06/09/20 13:39 100 06/09/20 13:34 100 Transfer of Care Handoff Completed per policy Notes Mental Status: alert / awake / arousable and participated in evaluation Patient Amnestic to Procedure: Yes Nausea / Vomiting: adequately controlled Pain: adequately controlled Airway Patency, RR, SpO2: stable & adequate BP & HR: stable & adequate Hydration State: stable & adequate Anesthetic Complications: no major complications apparent and Pt Satisfied with anesthetic care
[2020-06-10] MEDS ORDERED: SUCCINYLCHOLINE 100MG/5ML SYR IV ONE (13:59)
--- NOTE | 2020-06-10 16:10 | Hospitalist Progress Note ---
Date of Service June 10, 2020 Assessment & Plan (1) Gastric ulcer: One seen in the abdomen and one see near the anastomosis of his prior surgery. - Continue PPI IV gtt - Carafate QID x 10 days (2) Iron deficiency anemia: Iron deficiency anemia from malabsorption secondary to duodenojejunostomy vs GI bleed loss. - Will transfuse additional iron per oncology rec (3) Crohn's disease: He was admitted at [facility] this year, associated with SBO/Crohn's. He has a duodenal stricture just beyond previous surgery site of the duodenojejunostomy. This is causing a backup of fluid into the upper duodenum and stomach, creating a gastric outlet obstruction. The patient reports that the surgeon is waiting to see if Dr. Ignacio is able to fix his hematologic status first. 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 Initially on apixaban however due to episodes of bleeding this was switched to warfarin. However, reviewing notes for [facility] clinic, patient may require prophylactic dose of Lovenox. - Hold off medicine due to low hemoglobin. (5) Thrombosis of right iliac vein: As above. (6) COVID-19: Patient was positive on week and symptomatic on Tuesday. He has bee been symptomatic since Tuesday. It has been over 2 weeks since he was symptomatic. - Will place in negative pressure room for now. However, if needed, he would be a candidate to be move in a regular pressure room as per CDC guidelines. (7) DVT prophylaxis: SCDs - Holding for ulcers Admission and Anticipated Discharge Date Admission Date: June 09, 2020 Subjective Doing well today. No pain. Reports no fevers/chills, chest pain, shortness of breath, abdominal pain, nausea, or vomiting. Physical Exam Constitutional: WD/WN, vitals as above Eyes: EOM intact bilaterally; no conjunctival abnormality ENMT: external ear and nose normal, oropharynx normal Neck: trachea midline, no thyromegaly normal visual inspection Respiratory: normal respiratory effort, lungs clear to auscultation no respiratory distress Cardiovascular: RRR, no murmur, no edema Gastrointestinal (Abdomen): Inspection/Auscultation: abdomen normal to inspection; abdomen not distended Musculoskeletal: no cyanosis or clubbing, extremities motor strength 5/5 Skin: no rashes, warm and dry Neurologic: moves all extremities and awake Psychiatric: Orientation: alert, oriented to person and cooperative Results & Data Results & Data ([facility]) Vital Signs (Past 12 Hours) Vital Signs Temp Pulse Pulse Resp BP BP Pulse Ox 06/10/20 15:26 100/66 06/10/20 13:30 82 16 102/55 L 98 06/10/20 13:20 86 16 108/58 L 98 06/10/20 13:10 36.5 C 91 H 17 101/59 L 98 06/10/20 08:26 36.4 C L 80 105/87 06/10/20 08:24 36.6 C 82 18 110/69 06/10/20 08:11 36.8 C 80 18 111/80 06/10/20 07:53 36.5 C 76 18 100/62 06/10/20 07:37 68 06/10/20 06:42 36.5 C 78 15 97/60 L 100 06/10/20 05:45 36.6 C 70 15 100/61 99 06/10/20 05:15 36.6 C 82 15 99/62 L 100 06/10/20 05:00 36.6 C 72 16 95/61 L 100 06/10/20 04:39 36.6 C 77 16 99/63 L 100 PG Care Time/CCT Total # of Minutes Spent Total Time Spent with Patient: Total time spent is greater than 50% in coordination of care (as documented) at patient's floor/unit and/or counseling patient: Coding Level of Care Code 84250 Subseq Hosp Care Lvl 3 Diagnoses Gastric ulcer K25.9 Iron deficiency anemia D50.9 Iron deficiency anemia type: unspecified iron deficiency Crohn's disease K50.019 Gastrointestinal tract location: small intestine Digestive disease complication type: unspecified complication Thrombosis of left renal vein I82.3 Thrombosis of right iliac vein I82.421 COVID-19 U07.1 DVT prophylaxis Z29.9 (1) Iron deficiency anemia Iron deficiency anemia type: unspecified iron deficiency Qualified Code(s): D50.9 - Iron deficiency anemia, unspecified (2) Crohn's disease Gastrointestinal tract location: small intestine Digestive disease complication type: unspecified complication Qualified Code(s): K50.019 - Crohn's disease of small intestine with unspecified complications
[2020-06-10] MEDS ORDERED: IRON SUCROSE 400 MG in SODIUM CHLORIDE 0.9% 250 ML IV ONE (16:30)
[2020-06-11] MEDS: PANTOprazole 40 MG in DEXTROSE 5% 100 ML IV SCH ×2 (05:10→10:21)
[2020-06-11 07:43] LABS: Hematocrit (blood only) 29.7 % (42-52); Hemoglobin 9.5 g/dL (14.0-18.0); Mean Corpuscular Hemoglobin 26.8 pg (25-34); Mean Corpuscular Volume 83.7 fL (80-100); Mean Platelet Volume 10.2 fL (7.4-10.4); Platelet Count 287 K/uL (130-400); RDW Coefficient of Variation 16.2 % (11.5-14.5); RDW Standard Deviation 49.3 fL (36.4-46.3); Red Blood Count 3.55 M/uL (4.7-6.1); White Blood Count 4.25 K/uL (4.8-10.8)
[2020-06-11 08:10] LABS: BUN Creatinine Ratio 19.8 (10-20); Blood Urea Nitrogen 12 mg/dl (7-18); Calcium 7.5 mg/dl (8.5-10.1); Carbon Dioxide 27 mmol/L (21-32); Chloride 105 mmol/L (98-107); Creatinine Clr Calc Pharmacy 169.1 ml/min; Est GFR (African American) > 150.0; Est GFR (Non-African American) 131.2; Glucose 82 mg/dl (70-99); Magnesium 1.7 mg/dl (1.8-2.4); Potassium 3.1 mmol/L (3.5-5.1); Sodium 138 mmol/L (136-145)
--- NOTE | 2020-06-11 08:46 | Progress Notes ---
DATE: 06/11/2020 DIAGNOSES: 1. Acute upper gastrointestinal bleeding. 2. Microcytic anemia consistent with iron deficiency. 3. Hypokalemia. 4. Hypoalbuminemia. SUBJECTIVE: The patient was seen and examined at bedside, feeling much better this morning. According to the patient he received a total of 4 units of packed RBCs and a single dose of IV iron. When asked how he is feeling, he answered "like a new man." He has resumed his appetite and appreciate gastroenterology's input. Appropriately the patient should be observed another 24 hours or so before discharge for specifically to monitor any further bleeding. Nursing reports no overnight difficulties and the patient again has no specific complaints. He is requesting to be discharged as soon as possible. OBJECTIVE: GENERAL: A very pleasant 34-year-old gentleman, awake, alert and appropriate, in no acute distress. VITAL SIGNS: Temperature 36.5, pulse 52, respiratory rate 18, blood pressure 101/64. SKIN: Without rash or lesion. HEENT: Oral mucosa without erythema or ulceration. HEART: Regular rate and rhythm. No clicks, rubs, murmurs or gallops. LUNGS: Clear to auscultation bilaterally. ABDOMEN: Soft, nontender, nondistended, without palpable hepatosplenomegaly. EXTREMITIES: No calf tenderness or swelling. No clubbing, cyanosis or edema. LABORATORY DATA: Pending at time of dictation. IMPRESSION: 1. Upper gastrointestinal bleeding. 2. Microcytic anemia consistent with iron deficiency. 3. Hyperkalemia. 4. Hypoalbuminemia. PLAN: In summary, the patient is a pleasant 34-year-old gentleman well known to [facility] [place], currently under my care for refractory iron deficiency anemia. Once again, I appreciate GI's input and EGD was actually performed yesterday according to the patient 2 small bleeders were found and I suspect were cauterized. Any official endoscopic report is not available for review at this time. The patient received a total of 4 packed RBCs and a single dose of IV iron. Perhaps a second dose of IV iron could be provided tonight or tomorrow morning before discharge. We will continue to follow the patient closely. I would provide a lab slip for weekly peripheral blood counts or minimally an H and H, so I can continue to monitor him closely and provide IV iron as appropriate. I have nothing further to add and will officially sign off today. Thank you very much for allowing me to participate in the care of this very pleasant patient.
[2020-06-11] MEDS ORDERED: POTASSIUM CHLORIDE CRTAB 20 MEQ TABCR PO ONE (09:30)
[2020-06-11] MEDS ORDERED: IRON SUCROSE 400 MG in SODIUM CHLORIDE 0.9% 250 ML IV ONE (09:30)
[2020-06-11] MEDS ORDERED: MAGNESIUM SULFATE / D5W 1 GM/100 ML BAG IV ONE (09:30)
[2020-06-11] MEDS ORDERED: PANTOprazole 40 MG TAB PO STA (13:14)
--- NOTE | 2020-06-11 21:11 | Discharge Summary ---
Date of Service June 11, 2020 Admission HPI Per Admitting Provider The patient is a 34-year-old male with a past medical history including Crohn's disease, iron deficiency anemia, duodenal stricture, asthma, incisional hernia, allergic rhinitis, anxiety, left renal vein thrombosis, right internal iliac vein thrombosis, duodenojejunostomy, cholecystectomy, sinus surgeries x5, cardiac cath in 1995, and EGD and colonoscopy at [facility] on 02/22/2020 and EGD here on 04/09/[address] Cole. He presents with a 1 day history of feeling fatigued. He was seen by hematology today and had a hemoglobin of 4, which prompted him to come into the hospital. He reports he had just had a recent bout of COVID-19. He reports his had COVID 19 and he became symptomatic on Black Tuesday. His only symptoms however were vomiting and diarrhea as well as a headache. This though has subsided for days. and he reports recently he was back to his usual state of health. He was surprised at how her felt yesterday as all of a sudden he had low energy, felt fatigued and had a headache. He reports that due to COVID-19 he had to miss iron transfusion for about a week. Principal Diagnosis Anemia from gastric ulcers and probably poor iron absorption Discharge Exam Constitutional WD/WN, vitals as above Eyes EOM intact bilaterally; no conjunctival abnormality ENMT external ear and nose normal, oropharynx normal Neck trachea midline, no thyromegaly normal visual inspection Respiratory normal respiratory effort, lungs clear to auscultation no respiratory distress Cardiovascular RRR, no murmur, no edema Gastrointestinal (Abdomen) Inspection/Auscultation: abdomen normal to inspection; abdomen not distended Musculoskeletal no cyanosis or clubbing, extremities motor strength 5/5 Skin no rashes, warm and dry Neurologic moves all extremities and awake Psychiatric Orientation: alert, oriented to person and cooperative Discharge Data Allergies Allergy/AdvReac Type Severity Reaction Status Date / Time amoxicillin [From Augmentin] Allergy Mild Rash Verified 06/09/20 15:48 Iodinated Contrast Media Allergy asthma Verified 06/09/20 15:48 attack clavulanic acid AdvReac Mild Rash Verified 06/09/20 15:48 [From Augmentin] Sulfa (Sulfonamide AdvReac Mild Rash Verified 06/09/20 15:49 Antibiotics) peanut oil AdvReac Diarrhea Unverified 06/09/20 15:48 HOT DOG AdvReac Vomiting Uncoded 06/09/20 15:47 Consultations 06/09/20 14:16 ED Decision to Admit Stat 06/09/20 14:50 Consult Gastroenterology Routine 06/09/20 14:51 Consult Hematology Routine Procedures Performed Operation Date: 06/10/20 13:00 Actual Procedures p Esophagogastroduodenoscopy(Not Applicable) - Sathya Haro Case, DO Hospital Course (1) Gastric ulcer: One seen in the abdomen and one see near the anastomosis of his prior surgery. Neither had stigmata of recent bleeding. - Likely partly due to slow ulcer bleeding and poor GI absorption of iron leading to deficiency. Responded well to 4 units PRBCs and 2 doses of IV iron. Hgb was 9.5 on discharge. - Continue PPI PO BID - Carafate QID x 10 days (2) Iron deficiency anemia: Iron deficiency anemia from malabsorption secondary to duodenojejunostomy vs GI bleed loss. - Transfused IV iron per oncology rec (3) Crohn's disease: He was admitted at [facility] this year, associated with SBO/Crohn's. He has a duodenal stricture just beyond previous surgery site of the duodenojejunostomy. This is causing a backup of fluid into the upper duodenum and stomach, creating a gastric outlet obstruction. The patient reports that the surgeon is waiting to see if Dr. Ignacio is able to fix his hematologic status first. - No other inpatient needs - Will speak with [facility] about adjusting Humira vs. changing to alternative agent in case the ulcers are related to Crohn's. 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 Initially on apixaban however due to episodes of bleeding this was switched to warfarin. - Done with anticoagulation at this time. (5) Thrombosis of right iliac vein: As above. (6) COVID-19: Patient was positive on week and symptomatic on Tuesday. He has bee been symptomatic since Tuesday. It has been over 2 weeks since he was symptomatic. - Not contagious at this time. No need for negative pressure. (7) DVT prophylaxis: SCDs - Holding for ulcers Total Time Total Time Spent Total Time Spent (In Minutes): 35 Discharge Plan Discharge Items Patient Disposition: Home - Self-Care Reason For Visit: ANEMIA Discharge Diagnosis: Anemia Activity: Resume your previous activity Non-emergency contact: Primary Care Provider, Rotor Winder and Oncologist Call non-emergency contact if: your symptoms worsen Follow-up/Referrals: Sathya Carreon DO [Physician] - (Please follow up with your [place] [facility] doctors in regards to your Crohn's treatment.) Heri Ignacio DO [Physician] - (Please see Dr. Ignacio for hemoglobin monitoring and iron infusions.) Sridevi Mendoza D.O. [Primary Care Provider] - 06/30/20 3:30 pm (You already have an appt scheduled with your PCP on 06/30 at 330pm) Diet: Heart Healthy Addtl Attending Provider Instructions: You were admitted for anemia. We think this was caused by some slow bleeding from the ulcer in your stomach and the ulcer in your duodenum. They did not show significant signs of active or recent bleeding, so these likely had some slight, slow bleeding over a considerable amount of time. Additionally, your body doesn't absorb iron very well because of the missing portion of your small intestine. I do think that iron infusions will likely be required indefinitely for you unfortunately. Please follow up with Dr. Ignacio for monitoring of your hemoglobin and any needed iron transfusions. Pending Studies at Discharge: No Stand-Alone Forms: My [facility], Smoking Cessation Medications and DC Order Prescriptions: New sucralfate [Carafate] 1 gram tablet 1 g PO ACHS 28 Days Qty: 28 RF: 0 Continued Humira Pen 40 mg/0.8 mL Pen Injector Kit 40 mg SUBCUT .Q2W RF: 0 pantoprazole 40 mg tablet,delayed release (DR/EC) 40 mg PO BID Qty: 60 RF: 1 famotidine [Pepcid] 20 mg Tablet 20 mg PO QDL RF: 0 Discharge Orders: Discharge Order (Routine); Ordered 06/11/20 Ordered By: Dionicio Whitley Admission Data Admit Date/Time: 06/09/20 14:49 Attending Provider: Dionicio Whitley Admit Provider: Aleksander Brooks Primary Care Provider: Sridevi Mendoza Other Providers: Dionicio Whitley ; Aleksander Brooks ; Sathya Carreon ; Heri Ignacio V. Other Interventions: Discharge Summary Assessment (RN) Last Done: 06/11/20 13:34 Coding Level of Care Code D/C Day Management >30 mins Diagnoses Gastric ulcer K25.9 Iron deficiency anemia D50.9 Iron deficiency anemia type: unspecified iron deficiency Crohn's disease K50.019 Gastrointestinal tract location: small intestine Digestive disease complication type: unspecified complication Thrombosis of left renal vein I82.3 Thrombosis of right iliac vein I82.421 COVID-19 U07.1 DVT prophylaxis Z29.9
== END 2020-06-11 14:41 | disposition home or self-care (01) | DRG 378 ==
LOC: ED 13:00 → SUATTDRO 14:49 → 2W 14:49